=== PATIENT | female | born 1940 | race Caucasian/White ===

== ENCOUNTER → 2018-03-15 08:54 | Outpatient (CLI) | payer MEDICARE, OTHER, SELFPAY ==
[2018-03-15 09:55] LABS: Alanine Aminotransferase 26 IU/L (9-52); Albumin 4.4 g/dL (3.5-5.0); Albumin Globulin Ratio 1.6 (1.0-2.8); Alkaline Phosphatase 111 U/L (38-126); Aspartate Aminotransferase 25 IU/L (14-36); BUN Creatinine Ratio 18.6 (6-22); Bilirubin Total 0.5 mg/dL (0.2-1.3); Blood Urea Nitrogen 13 mg/dL (7-17); Calcium 9.4 mg/dL (8.4-10.2); Carbon Dioxide 26 mmol/L (22-32); Chloride 107 mmol/L (98-107); Cholesterol 141 mg/dL (140-199); Estimated Glomerular Filt Rate > 60.0 mL/min (>60); Globulin 2.8 g/dL (1.7-4.1); Glucose 100 mg/dL (80-110); HDL Cholesterol 48 mg/dL (40-60); HEMOLYSIS < 15 (0-50); LDL Cholesterol Calculated 66 mg/dL (<100); Sodium 146 mmol/L (137-145); Total Protein 7.2 g/dL (6.3-8.2); Triglycerides 136 mg/dL (35-150)
== END ==
PROVIDERS: Visit Provider Physician Assistant
DX: E78.2 Mixed hyperlipidemia (principal)
CPT/HCPCS: 36415; 80053; 80061

== ENCOUNTER → 2019-06-14 12:23 | Outpatient (CLI) | payer MEDICARE, OTHER, SELFPAY ==
[2019-06-14 14:14] LABS: Add Manual Diff / Slide Review NO; Basophils Absolute Auto 100 /uL (0-100); Basophils Percent Auto 1.1 % (0-2); Eosinophils Absolute Auto 100 /uL (0-450); Eosinophils Percent Auto 1.8 % (2-4); Hematocrit 41.4 % (36-46); Hemoglobin 13.5 g/dL (12.0-16.0); Lymphocytes Absolute Auto 1900 /uL (1100-4500); Lymphocytes Percent Auto 22.9 % (25-40); Mean Corpuscular HGB Conc 32.7 % (30-36); Mean Corpuscular Hemoglobin 27.7 PG (26-34); Mean Corpuscular Volume 84.9 fL (80-100); Monocytes Absolute Auto 700 /uL (0-900); Monocytes Percent Auto 8.8 % (3-14); Neutrophils Absolute Auto 5400 /uL (1500-7000); Neutrophils Percent Auto 65.4 % (50-75); Platelet Count 248 X10^3/uL (150-400); Red Blood Cell Count 4.88 X10^6/uL (4.0-5.2); Red Cell Distribution Width 14.8 % (11.6-14.8); White Blood Cell Count 8.2 X10^3/uL (4.5-11.0)
[2019-06-14 16:07] LABS: Alanine Aminotransferase 20 IU/L (<35); Albumin 4.3 g/dL (3.5-5.0); Albumin Globulin Ratio 1.5 (1.0-2.8); Alkaline Phosphatase 132 U/L (38-126); Aspartate Aminotransferase 23 IU/L (14-36); BUN Creatinine Ratio 25.7 (6-22); Bilirubin Total 0.6 mg/dL (0.2-1.3); Blood Urea Nitrogen 18 mg/dL (7-17); Calcium 9.6 mg/dL (8.4-10.2); Carbon Dioxide 24 mmol/L (22-32); Chloride 100 mmol/L (98-107); Cholesterol 165 mg/dL (140-199); Estimated Glomerular Filt Rate > 60.0 mL/min (>60); Globulin 2.8 g/dL (1.7-4.1); Glucose 79 mg/dL (80-110); HDL Cholesterol 71 mg/dL (40-60); HEMOLYSIS < 15 (0-50); LDL Cholesterol Calculated 74 mg/dL (<100); Potassium 3.8 mmol/L (3.4-5.1); Sodium 137 mmol/L (137-145); Total Protein 7.1 g/dL (6.3-8.2); Triglycerides 101 mg/dL (35-150)
[2019-06-14 16:37] LABS: TSH w/ Reflex to FT4 3.19 uIU/mL (0.47-4.68)
[2019-06-14 18:26] LABS: Hemoglobin A1C% w Est Avg Glu 5.2 % (4.0-6.0)
[2019-06-14 19:09] LABS: Vitamin B12 367 pg/mL (239-931)
[2019-06-20 15:25] LABS: Albumin 3.9 g/dL (3.8-4.8); Alpha 1 Globulin 0.3 g/dL (0.2-0.3); Alpha 2 Globulin 0.9 g/dL (0.5-0.9); Beta 1 Globulin 0.4 g/dL (0.4-0.6); Gamma Globulin 0.9 g/dL (0.8-1.7); Protein, Total 6.7 g/dL (6.1-8.1)
--- NOTE | 2019-07-09 15:31 | ONC.MSW ---
Description: New Referral Navigation-monoclonal gammopathy Activity: Reviewed referral for medical status, acuity, and immediate needs. Forwarded to scheduling for next available initial consult visit f/u.
== END ==
PROVIDERS: Family Provider Internal Medicine; PCP Physician Assistant; Visit Provider Physician Assistant
DX: E78.2 Mixed hyperlipidemia (principal); E03.9 Hypothyroidism, unspecified; G62.9 Polyneuropathy, unspecified; D47.2 Monoclonal gammopathy; R73.01 Impaired fasting glucose; E53.8 Deficiency of other specified B group vitamins
CPT/HCPCS: 36415; 80053; 80061; 82607; 83036; 84155; 84165; 84443; 85025

== ENCOUNTER 2020-08-24 15:15 | Outpatient (RCR) | payer MEDICARE, OTHER, SELFPAY ==
--- NOTE | 2020-05-04 18:05 | PT.OIE ---
Current Diagnoses Unilateral primary osteoarthritis, right knee (05/04/20) Trochanteric bursitis, right hip (05/04/20) Difficulty in walking, not elsewhere classified (05/04/20) Weakness (05/04/20) Past Medical History (Last Updated 07/11/19 @ 10:44 by Joby Aggarwal MD) Hyperlipidemia (~1991) Ischemic colitis (~2010) Past Surgical History (Last Updated 07/11/19 @ 10:44 by Joby Aggarwal MD) H/O hysterectomy with oophorectomy History of left knee surgery (~2009) Visit Care Team Role Provider Type Jess Jordan PA-C Primary Care Provider Advanced Interior Design Instructor Specialty: Internal Medicine Address: [address] [place] [address], [id number] Email: [email or web address] Fede Moore DO Family Provider Physician Specialty: Internal Medicine Address: [address] [place] [address], [phone] Email: Attending Provider Referring Provider Specialty: Address: Phone: Fax: Email: Physical Therapy Initial Evaluation PT-OP-A Visit Information Start: 05/04/20 12:29 Freq: Status: Active Protocol: Document 05/04/20 16:47 [facility] (Rec: 05/04/20 17:49 [facility] [id number]) Out-Patient Physical Therapy Visit Information Visit Information Visit Type Initial Evaluation Visit Start Time 16:50 Visit Stop Time 17:40 Total Visit Minutes 50 Visit Number 1 Number of MANAGER OFFICE SERVICES Visits 0 PT-OP-B Current Condition Start: 05/04/20 12:29 Freq: Status: Active Protocol: Document 05/04/20 16:47 [facility] (Rec: 05/04/20 17:49 [facility] [id number]) Current Condition History of Current Condition Onset Date end of fall Current Complaints R knee & thigh History of Current Condition Pt reports she cannot straighten her R leg out for any length of time. She gets shooting pains into ant & post knee and med and lat thigh. Pt reports she has a terrible time sleeping and has to take ibuprofen & tylenol. Pt reports it depends on what she does during the day for her pain. Pt works at [employer] . She has to stand for the 4 hours at [employer] and she hurts really bad. 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 pt reports the pain is more when seh is tired . She used to walk at [employer] but hasn't d/t weather, pain & COVID. Pt reports the end of summer in Jan and Feb, she could hear a clicking in her knee but not all the time. Pt reports it just has gotten worse since then. Pt reports then her ankle started swelling to. Pt has a L uni knee in jan and saw the PA at the same clinic. PA thinks she has a tight ITB and there may be a meniscus injury to R knee. Mostly the pain feels muscular but notes the pain to ant L knee and into L adductor region. Pt does not remember any injuries . Pt reports PA diagnosed her with OA in R knee. Pt reports PA recommended possibly cortizone shot and she is opting out of that right now. She does not like to take meds typically. Pt has restless legs also and has to take tyleonol for that. Treatment Goals Patient/Caregiver Goals return to walking, dec pain PT-OP-C Subjective Start: 05/04/20 12:29 Freq: Status: Active Protocol: Document 05/04/20 16:47 [facility] (Rec: 05/04/20 17:49 [facility] [id number]) OP-PT Pain Assessment Location R knee Pain Location Details ant and med knee Scale Used worst 10/10 Description Sharp Description- Other best 2/10, gets stiff easily Frequency Constant Radiating Location adductors, lat thigh, olivarez Variations/Patterns swelling in R ankle and lower leg Pain Aggravating Factors Standing,Walking,Stair Climbing Other Pain Aggravating Factors at night, knee ext Pain Alleviating Factors Medication PT-OP-D Balance Start: 05/04/20 12:29 Freq: Status: Active Protocol: Document 05/04/20 16:47 [facility] (Rec: 05/04/20 17:49 [facility] [id number]) Balance Tests Single Limb Standing Single Limb- Right 2 sec pain Single Limb- Left 4 sec PT-OP-F Manual Assessment Start: 05/04/20 12:29 Freq: Status: Active Protocol: Document 05/04/20 16:47 [facility] (Rec: 05/04/20 17:49 [facility] [id number]) Manual Assessments Soft Tissue Assessment Soft Tissue Mobility Assessment tender at med >lat joint line, adductors, ITB, HS & quad, pes anserene PT-OP-G Mobility & Gait Start: 05/04/20 12:29 Freq: Status: Active Protocol: Document 05/04/20 16:47 [facility] (Rec: 05/04/20 17:49 [facility] [id number]) OP Gait Assessment Comments Gait Comments Pt has inc lat leaning B and dec push off on L side and dec stance time PT-OP-J Posture/Palpation/Skin Start: 05/04/20 12:29 Freq: Status: Active Protocol: Document 05/04/20 16:47 [facility] (Rec: 05/04/20 17:49 [facility] [id number]) Posture Evaluation Randy Postural Classification System Randy Postural Classifications Posterior/Posterior Lumbar Protective Mechanism Left AP 2 Lumbar Protective Mechanism Right AP 0 Lumbar Protective Mechanism Left PA 2 Lumbar Protective Mechanism Right PA 0 PT-OP-K Range of Motion Start: 05/04/20 12:29 Freq: Status: Active Protocol: Document 05/04/20 16:47 [facility] (Rec: 05/04/20 17:49 [facility] [id number]) Knee Goniometric Range of Motion Knee Right Flexion Active (degrees) 121 Extension Active (degrees) 12 Left Flexion Active (degrees) 131 Extension Active (degrees) 5 PT-OP-L Special Tests Start: 05/04/20 12:29 Freq: Status: Active Protocol: Document 05/04/20 16:47 [facility] (Rec: 05/04/20 17:49 [facility] [id number]) Special Tests Knee Special Tests Amparo Test Test Results pain but no clicking Librado Test Results R hip flexor & quad tightness, L mild quad tightness Straight Leg Raise Test Results 92 L, 71 R Varus- 25 Degrees Test Results neg R Valgus- 25 Degrees Test Results neg R Compa's Test Results neg R Anterior Draw Test Results neg R Posterior Draw Test Results neg R PT-OP-M Strength Start: 05/04/20 12:29 Freq: Status: Active Protocol: Document 05/04/20 16:47 [facility] (Rec: 05/04/20 17:49 [facility] [id number]) Hip Strength Hip Manual Muscle Testing Right Flexion (L2) 3+ Fair+ Extension (S1) 2+ Poor+ Abduction 3 Fair Adduction 2+ Poor+ External Rotation 3 Fair Internal Rotation 3 Fair Left Flexion (L2) 4- Good- Extension (S1) 2+ Poor+ Abduction 4- Good- Adduction 3+ Fair+ External Rotation 3+ Fair+ Internal Rotation 4- Good- Knee Strength Knee Manual Muscle Testing Right Flexion (S2) 4- Good- Extension (L3) 4- Good- Left Flexion (S2) 4 Good Extension (L3) 5 Normal Ankle/Foot Strength Ankle and Foot Manual Muscle Testing Right Dorsiflexion (L4) 5 Normal Plantarflexion (S1) 5 Normal Left Dorsiflexion (L4) 5 Normal Plantarflexion (S1) 5 Normal PT-OP-Q Treatments Start: 05/04/20 12:29 Freq: Status: Active Protocol: Document 05/04/20 16:47 [facility] (Rec: 05/04/20 17:49 [facility] [id number]) Therapeutic Activity Therapeutic Activity sleep Name [facility] re: sleep psotion w/use of pillow for set up btwn knees PT-OP-R Modalities Start: 05/04/20 12:29 Freq: Status: Active Protocol: Document 05/04/20 16:47 [facility] (Rec: 05/04/20 17:49 [facility] [id number]) Hot Pack/Cold Pack Treatment Cold Pack Location R knee Patient Position Hooklying Treatment Duration (minutes) 10 PT-OP-T Assessment and Plan Start: 05/04/20 12:29 Freq: Status: Active Protocol: Document 05/04/20 16:47 [facility] (Rec: 05/04/20 17:49 [facility] [id number]) Physical Therapy Assessment Rehab Potential Rehabilitation Potential Good Evaluation Complexity Number of Personal Factors/Comorbidities 3 or More Number of Body Systems Impaired 4 or More Clinical Presentation at Evaluation Evolving Impairments Impairments Activity Tolerance,Balance, Functional Activities, Functional Mobility,Gait,Pain, ROM,Soft Tissue Mobility, Strength Goals ROM Short Term Goal (STG) Pt will have at least 5-130 deg ROM of R knee without inc pain. STG Duration 06/04/20 Aircraft Stress Analyst Goal (LTG) Pt will be able to ascend and descend stairs without inc pain. LTG Duration 07/05/20 activities Short Term Goal (STG) Pt will be able to do typical walks at [facility] 3x/week with no more than 3/10 pain. STG Duration 06/13/20 Care Home Goal (LTG) Pt iwll be able to stand for full volunteer shifts without increased pain. LTG Duration 07/05/20 strength Short Term Goal (STG) pt will be indep with HEP STG Duration 06/04/20 Care Home Goal (LTG) Pt will score at least 4+/5 on all planes for MMT for B LE and 3/5 in all plans for LPM to show imrpoved stability to allow pt to do typical activiteis without pain. LTG Duration 07/05/20 LEFS Impairment 52/80 Aircraft Stress Analyst Goal (LTG) Pt will improve score to 62/80 to show improved functional ability. LTG Duration 07/05/20 Assessment Summary Assessment Pt presents with R knee and thigh/olivarez pain that started a couple months ago with clicking and mild pain but now is much worse where it limits her activities. She has no ligamentous laxity, testing and pt report indicates possible meniscal injury but pt does not have any recall of injury that would have caused this. She has dec stance time on RLE during gait, is unable to stand for extended time, has dec R knee ROM, dec RLE flexibility, and dec strength and balance. SHe would benefit from skilled PT to imrpove these deficits and dec her pain in order to allow her to participate in her typical daily activities without limitation. Physical Therapy Plan Frequency and Duration Frequency of Treatment 2x/Week Duration of Treatment 2 months Plan of Care Start Date 05/04/20 Plan of Care End Date 07/05/20 Therapeutic Interventions Therapeutic Interventions Aquatic Therapy,Balance Training,Gait Training,Home Exercise Program,Joint Mobilizations,Manual Therapy, Neuromuscular Re-education, Orthotic/Prosthetic Management ,Patient/Caregiver Education, Self-Care/Home Management,Soft Tissue Mobilization,Taping, Therapeutic Activities, Therapeutic Exercises Modalities Cold Pack/Ice Massage,Electric Stimulation,Hot Packs, Infrared Therapy,Iontophoresis ,Ultrasound Next Visit Focus/Plan Next Note Type Treatment Note Next Visit Plan stretching regimen for before bed for thigh pain & RLS, self rolling w/rolling pin, quad set & heel slide, STM for improved mobility.
--- NOTE | 2020-05-04 18:05 | PT.OPPOC ---
Physical, Occupational & Speech Therapy At [facility] Current Diagnoses Unilateral primary osteoarthritis, right knee (05/04/20) Trochanteric bursitis, right hip (05/04/20) Difficulty in walking, not elsewhere classified (05/04/20) Weakness (05/04/20) Visit Care Team Role Provider Type Jess Jordan PA-C Primary Care Provider Advanced Wagon Driller Specialty: Internal Medicine Address: [address] [place] [address], [phone] Email: [email or web address] Fede Moore DO Family Provider Physician Specialty: Internal Medicine Address: [address] [place] [address], [phone] Email: Attending Provider Referring Provider Specialty: Address: Phone: Fax: Email: Plan Of Care PT-OP-T Assessment and Plan Start: 05/04/20 12:29 Freq: Status: Active Protocol: Document 05/04/20 16:47 [facility] (Rec: 05/04/20 17:49 [facility] [id number]) Physical Therapy Assessment Rehab Potential Rehabilitation Potential Good Evaluation Complexity Number of Personal Factors/Comorbidities 3 or More Number of Body Systems Impaired 4 or More Clinical Presentation at Evaluation Evolving Impairments Impairments Activity Tolerance,Balance, Functional Activities, Functional Mobility,Gait,Pain, ROM,Soft Tissue Mobility, Strength Goals ROM Short Term Goal (STG) Pt will have at least 5-130 deg ROM of R knee without inc pain. STG Duration 06/04/20 Test Driller Goal (LTG) Pt will be able to ascend and descend stairs without inc pain. LTG Duration 07/05/20 activities Short Term Goal (STG) Pt will be able to do typical walks at [employer] 3x/week with no more than 3/10 pain. STG Duration 06/13/20 Test Driller Goal (LTG) Pt iwll be able to stand for full volunteer shifts without increased pain. LTG Duration 07/05/20 strength Short Term Goal (STG) pt will be indep with HEP STG Duration 06/04/20 Group Home Goal (LTG) Pt will score at least 4+/5 on all planes for MMT for B LE and 3/5 in all plans for LPM to show imrpoved stability to allow pt to do typical activiteis without pain. LTG Duration 07/05/20 LEFS Impairment 52/80 Test Driller Goal (LTG) Pt will improve score to 62/80 to show improved functional ability. LTG Duration 07/05/20 Assessment Summary Assessment Pt presents with R knee and thigh/olivarez pain that started a couple months ago with clicking and mild pain but now is much worse where it limits her activities. She has no ligamentous laxity, testing and pt report indicates possible meniscal injury but pt does not have any recall of injury that would have caused this. She has dec stance time on RLE during gait, is unable to stand for extended time, has dec R knee ROM, dec RLE flexibility, and dec strength and balance. SHe would benefit from skilled PT to imrpove these deficits and dec her pain in order to allow her to participate in her typical daily activities without limitation. Physical Therapy Plan Frequency and Duration Frequency of Treatment 2x/Week Duration of Treatment 2 months Plan of Care Start Date 05/04/20 Plan of Care End Date 07/05/20 Therapeutic Interventions Therapeutic Interventions Aquatic Therapy,Balance Training,Gait Training,Home Exercise Program,Joint Mobilizations,Manual Therapy, Neuromuscular Re-education, Orthotic/Prosthetic Management ,Patient/Caregiver Education, Self-Care/Home Management,Soft Tissue Mobilization,Taping, Therapeutic Activities, Therapeutic Exercises Modalities Cold Pack/Ice Massage,Electric Stimulation,Hot Packs, Infrared Therapy,Iontophoresis ,Ultrasound Next Visit Focus/Plan Next Note Type Treatment Note Next Visit Plan stretching regimen for before bed for thigh pain & RLS, self rolling w/rolling pin, quad set & heel slide, STM for improved mobility. Plan of Care Dates Plan of Care Start Date 05/04/20 Plan of Care End Date 07/05/20 Electronically Signed by: Radha Wesley, PT 05/04/20 [id number] Please Sign and Return: I have reviewed this Plan of Care and certify that the skilled therapy services above are required to meet the patient?s needs. Physician Signature Date Printed Name and Credentials Clinical Instructor Signature Printed Name and Credentials
--- NOTE | 2020-05-07 12:14 | PT.OTN ---
Current Diagnoses Unilateral primary osteoarthritis, right knee (05/07/20) Trochanteric bursitis, right hip (05/07/20) Difficulty in walking, not elsewhere classified (05/07/20) Weakness (05/07/20) Physical Therapy Treatment Note PT-OP-A Visit Information Start: 05/04/20 12:29 Freq: Status: Active Protocol: Document 05/07/20 11:13 [facility] (Rec: 05/07/20 12:14 [facility] [id number]) Out-Patient Physical Therapy Visit Information Visit Information Visit Type Treatment Note Visit Start Time 11:16 Visit Stop Time 12:06 Total Visit Minutes 50 Visit Number 2 Number of SCIENTIFIC PROCESS OPERATOR Visits 0 PT-OP-B Current Condition Start: 05/04/20 12:29 Freq: Status: Active Protocol: Document 05/04/20 16:47 [facility] (Rec: 05/04/20 17:49 [facility] [id number]) Current Condition History of Current Condition Onset Date end of fall Current Complaints R knee & thigh History of Current Condition Pt reports she cannot straighten her R leg out for any length of time. She gets shooting pains into ant & post knee and med and lat thigh. Pt reports she has a terrible time sleeping and has to take ibuprofen & tylenol. Pt reports it depends on what she does during the day for her pain. Pt works at [employer] . She has to stand for the 4 hours at [employer] and she hurts really bad. 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 pt reports the pain is more when seh is tired . She used to walk at [employer] but hasn't d/t weather, pain & COVID. Pt reports the end of summer in Jan and Feb, she could hear a clicking in her knee but not all the time. Pt reports it just has gotten worse since then. Pt reports then her ankle started swelling to. Pt has a L uni knee in jan and saw the PA at the same clinic. PA thinks she has a tight ITB and there may be a meniscus injury to R knee. Mostly the pain feels muscular but notes the pain to ant L knee and into L adductor region. Pt does not remember any injuries . Pt reports PA diagnosed her with OA in R knee. Pt reports PA recommended possibly cortizone shot and she is opting out of that right now. She does not like to take meds typically. Pt has restless legs also and has to take tyleonol for that. Treatment Goals Patient/Caregiver Goals return to walking, dec pain PT-OP-C Subjective Start: 05/04/20 12:29 Freq: Status: Active Protocol: Document 05/07/20 11:13 [facility] (Rec: 05/07/20 12:14 [facility] [id number]) OP-PT Subjective Patient Comments Patient Comments Pt reports her pain is getting a little better except at night time. She gets sharp jabs behind R knee. Notes stretch over the edge of the bed feels good. PT-OP-D Balance Start: 05/04/20 12:29 Freq: Status: Active Protocol: Document 05/04/20 16:47 [facility] (Rec: 05/04/20 17:49 [facility] [id number]) Balance Tests Single Limb Standing Single Limb- Right 2 sec pain Single Limb- Left 4 sec PT-OP-F Manual Assessment Start: 05/04/20 12:29 Freq: Status: Active Protocol: Document 05/04/20 16:47 [facility] (Rec: 05/04/20 17:49 [facility] [id number]) Manual Assessments Soft Tissue Assessment Soft Tissue Mobility Assessment tender at med >lat joint line, adductors, ITB, HS & quad, pes anserene PT-OP-G Mobility & Gait Start: 05/04/20 12:29 Freq: Status: Active Protocol: Document 05/04/20 16:47 [facility] (Rec: 05/04/20 17:49 [facility] [id number]) OP Gait Assessment Comments Gait Comments Pt has inc lat leaning B and dec push off on L side and dec stance time PT-OP-J Posture/Palpation/Skin Start: 05/04/20 12:29 Freq: Status: Active Protocol: Document 05/04/20 16:47 [facility] (Rec: 05/04/20 17:49 [facility] [id number]) Posture Evaluation Randy Postural Classification System Randy Postural Classifications Posterior/Posterior Lumbar Protective Mechanism Left AP 2 Lumbar Protective Mechanism Right AP 0 Lumbar Protective Mechanism Left PA 2 Lumbar Protective Mechanism Right PA 0 PT-OP-K Range of Motion Start: 05/04/20 12:29 Freq: Status: Active Protocol: Document 05/04/20 16:47 [facility] (Rec: 05/04/20 17:49 [facility] [id number]) Knee Goniometric Range of Motion Knee Right Flexion Active (degrees) 121 Extension Active (degrees) 12 Left Flexion Active (degrees) 131 Extension Active (degrees) 5 PT-OP-L Special Tests Start: 05/04/20 12:29 Freq: Status: Active Protocol: Document 05/04/20 16:47 [facility] (Rec: 05/04/20 17:49 [facility] [id number]) Special Tests Knee Special Tests Amparo Test Test Results pain but no clicking Librado Test Results R hip flexor & quad tightness, L mild quad tightness Straight Leg Raise Test Results 92 L, 71 R Varus- 25 Degrees Test Results neg R Valgus- 25 Degrees Test Results neg R Compa's Test Results neg R Anterior Draw Test Results neg R Posterior Draw Test Results neg R PT-OP-M Strength Start: 05/04/20 12:29 Freq: Status: Active Protocol: Document 05/04/20 16:47 [facility] (Rec: 05/04/20 17:49 [facility] [id number]) Hip Strength Hip Manual Muscle Testing Right Flexion (L2) 3+ Fair+ Extension (S1) 2+ Poor+ Abduction 3 Fair Adduction 2+ Poor+ External Rotation 3 Fair Internal Rotation 3 Fair Left Flexion (L2) 4- Good- Extension (S1) 2+ Poor+ Abduction 4- Good- Adduction 3+ Fair+ External Rotation 3+ Fair+ Internal Rotation 4- Good- Knee Strength Knee Manual Muscle Testing Right Flexion (S2) 4- Good- Extension (L3) 4- Good- Left Flexion (S2) 4 Good Extension (L3) 5 Normal Ankle/Foot Strength Ankle and Foot Manual Muscle Testing Right Dorsiflexion (L4) 5 Normal Plantarflexion (S1) 5 Normal Left Dorsiflexion (L4) 5 Normal Plantarflexion (S1) 5 Normal PT-OP-Q Treatments Start: 05/04/20 12:29 Freq: Status: Active Protocol: Document 05/07/20 11:13 [facility] (Rec: 05/07/20 12:14 [facility] [id number]) Cardio Equipment Recumbent Elliptical ([employer]) Duration (Minutes) 6 Resistance 3 Seat Position 6 Therapeutic Exercises Supine Exercises SLR Supine Exercise Name core focus Side bilateral Reps/Minutes 10 ea bridge Side bilateral Reps/Minutes 10x 5 sec Comments core focus stretches Supine Exercise Name 1.HS & calf together 2. piriformis 3. figure 4 Side bilateral Reps/Minutes 30 sec ea librado test Side bilateral Reps/Minutes 30 sec Sidelying Exercises clamshell Reps/Minutes only 5 on R d/t pain Manual Therapy Treatment Soft Tissue Mobilization quads Body Location R Mobilization Type Rolling Intensity/Depth Superficial Body Position Hooklying adductors Body Location R Mobilization Type Rolling Intensity/Depth Superficial Body Position Hooklying PT-OP-R Modalities Start: 05/04/20 12:29 Freq: Status: Active Protocol: Document 05/07/20 11:13 [facility] (Rec: 05/07/20 12:14 [facility] [id number]) Hot Pack/Cold Pack Treatment Cold Pack Location R knee & quad Patient Position Hooklying Treatment Duration (minutes) 10 PT-OP-T Assessment and Plan Start: 05/04/20 12:29 Freq: Status: Active Protocol: Document 05/07/20 11:13 [facility] (Rec: 05/07/20 12:14 [facility] [id number]) Physical Therapy Assessment Goals ROM Short Term Goal (STG) Pt will have at least 5-130 deg ROM of R knee without inc pain. STG Duration 06/04/20 Lease Out Worker Goal (LTG) Pt will be able to ascend and descend stairs without inc pain. LTG Duration 07/05/20 activities Short Term Goal (STG) Pt will be able to do typical walks at [facility] 3x/week with no more than 3/10 pain. 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 LTG Duration 07/05/20 strength Short Term Goal (STG) pt will be indep with HEP STG Duration 06/04/20 Lease Out Worker Goal (LTG) Pt will score at least 4+/5 on all planes for MMT for B LE and 3/5 in all plans for LPM to show imrpoved stability to allow pt to do typical activiteis without pain. LTG Duration 07/05/20 LEFS Impairment 52/80 Lease Out Worker Goal (LTG) Pt will improve score to 62/80 to show improved functional ability. LTG Duration 07/05/20 Assessment Summary Assessment Pt tolerated all stretching exercises well without increased pain. Required cueing for form w/bridges to help dec knee pain duirng that activity. max cueing for core especially w/R SLR to dec pain. Pt could not tolerate more than superficial pressure to thigh with STM Physical Therapy Plan Frequency and Duration Frequency of Treatment 2x/Week Duration of Treatment 2 months Plan of Care Start Date 05/04/20 Plan of Care End Date 07/05/20 Next Visit Focus/Plan Next Note Type Treatment Note Next Visit Plan review exercises, STM to dec pain
--- NOTE | 2020-05-21 15:18 | PT.OTN ---
Current Diagnoses Unilateral primary osteoarthritis, right knee (05/21/20) Trochanteric bursitis, right hip (05/21/20) Difficulty in walking, not elsewhere classified (05/21/20) Weakness (05/21/20) Physical Therapy Treatment Note PT-OP-A Visit Information Start: 05/04/20 12:29 Freq: Status: Active Protocol: Document 05/21/20 14:04 [facility] (Rec: 05/21/20 15:18 [facility] [id number]) Out-Patient Physical Therapy Visit Information Visit Information Visit Type Treatment Note Visit Start Time 14:30 Visit Stop Time 15:23 Total Visit Minutes 53 Visit Number 3 Number of ROLLED GOLD PLATER Visits 0 PT-OP-B Current Condition Start: 05/04/20 12:29 Freq: Status: Active Protocol: Document 05/04/20 16:47 [facility] (Rec: 05/04/20 17:49 [facility] [id number]) Current Condition History of Current Condition Onset Date end of fall Current Complaints R knee & thigh History of Current Condition Pt reports she cannot straighten her R leg out for any length of time. She gets shooting pains into ant & post knee and med and lat thigh. Pt reports she has a terrible time sleeping and has to take ibuprofen & tylenol. Pt reports it depends on what she does during the day for her pain. Pt works at [employer] . She has to stand for the 4 hours at [employer] and she hurts really bad. 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 pt reports the pain is more when seh is tired . She used to walk at [employer] but hasn't d/t weather, pain & COVID. Pt reports the end of summer in Jan and Feb, she could hear a clicking in her knee but not all the time. Pt reports it just has gotten worse since then. Pt reports then her ankle started swelling to. Pt has a L uni knee in jan and saw the PA at the same clinic. PA thinks she has a tight ITB and there may be a meniscus injury to R knee. Mostly the pain feels muscular but notes the pain to ant L knee and into L adductor region. Pt does not remember any injuries . Pt reports PA diagnosed her with OA in R knee. Pt reports PA recommended possibly cortizone shot and she is opting out of that right now. She does not like to take meds typically. Pt has restless legs also and has to take tyleonol for that. Treatment Goals Patient/Caregiver Goals return to walking, dec pain PT-OP-C Subjective Start: 05/04/20 12:29 Freq: Status: Active Protocol: Document 05/21/20 14:04 [facility] (Rec: 05/21/20 15:18 [facility] [id number]) OP-PT Subjective Patient Comments Patient Comments Pt reports night is still bad. Notes she is trying the pillow. Standing at work is still painful. Feels like seh pulled and abdomenal mm during exercises so has laid off them. She reports doing okay after last time. 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 PT-OP-D Balance Start: 05/04/20 12:29 Freq: Status: Active Protocol: Document 05/04/20 16:47 [facility] (Rec: 05/04/20 17:49 [facility] [id number]) Balance Tests Single Limb Standing Single Limb- Right 2 sec pain Single Limb- Left 4 sec PT-OP-F Manual Assessment Start: 05/04/20 12:29 Freq: Status: Active Protocol: Document 05/04/20 16:47 [facility] (Rec: 05/04/20 17:49 [facility] [id number]) Manual Assessments Soft Tissue Assessment Soft Tissue Mobility Assessment tender at med >lat joint line, adductors, ITB, HS & quad, pes anserene PT-OP-G Mobility & Gait Start: 05/04/20 12:29 Freq: Status: Active Protocol: Document 05/04/20 16:47 [facility] (Rec: 05/04/20 17:49 [facility] [id number]) OP Gait Assessment Comments Gait Comments Pt has inc lat leaning B and dec push off on L side and dec stance time PT-OP-J Posture/Palpation/Skin Start: 05/04/20 12:29 Freq: Status: Active Protocol: Document 05/04/20 16:47 [facility] (Rec: 05/04/20 17:49 [facility] [id number]) Posture Evaluation Randy Postural Classification System Randy Postural Classifications Posterior/Posterior Lumbar Protective Mechanism Left AP 2 Lumbar Protective Mechanism Right AP 0 Lumbar Protective Mechanism Left PA 2 Lumbar Protective Mechanism Right PA 0 PT-OP-K Range of Motion Start: 05/04/20 12:29 Freq: Status: Active Protocol: Document 05/04/20 16:47 [facility] (Rec: 05/04/20 17:49 [facility] [id number]) Knee Goniometric Range of Motion Knee Right Flexion Active (degrees) 121 Extension Active (degrees) 12 Left Flexion Active (degrees) 131 Extension Active (degrees) 5 PT-OP-L Special Tests Start: 05/04/20 12:29 Freq: Status: Active Protocol: Document 05/04/20 16:47 [facility] (Rec: 05/04/20 17:49 [facility] [id number]) Special Tests Knee Special Tests Amparo Test Test Results pain but no clicking Librado Test Results R hip flexor & quad tightness, L mild quad tightness Straight Leg Raise Test Results 92 L, 71 R Varus- 25 Degrees Test Results neg R Valgus- 25 Degrees Test Results neg R Compa's Test Results neg R Anterior Draw Test Results neg R Posterior Draw Test Results neg R PT-OP-M Strength Start: 05/04/20 12:29 Freq: Status: Active Protocol: Document 05/04/20 16:47 [facility] (Rec: 05/04/20 17:49 [facility] [id number]) Hip Strength Hip Manual Muscle Testing Right Flexion (L2) 3+ Fair+ Extension (S1) 2+ Poor+ Abduction 3 Fair Adduction 2+ Poor+ External Rotation 3 Fair Internal Rotation 3 Fair Left Flexion (L2) 4- Good- Extension (S1) 2+ Poor+ Abduction 4- Good- Adduction 3+ Fair+ External Rotation 3+ Fair+ Internal Rotation 4- Good- Knee Strength Knee Manual Muscle Testing Right Flexion (S2) 4- Good- Extension (L3) 4- Good- Left Flexion (S2) 4 Good Extension (L3) 5 Normal Ankle/Foot Strength Ankle and Foot Manual Muscle Testing Right Dorsiflexion (L4) 5 Normal Plantarflexion (S1) 5 Normal Left Dorsiflexion (L4) 5 Normal Plantarflexion (S1) 5 Normal PT-OP-Q Treatments Start: 05/04/20 12:29 Freq: Status: Active Protocol: Document 05/21/20 14:04 [facility] (Rec: 05/21/20 15:18 [facility] [id number]) Cardio Equipment Recumbent Elliptical ([employer]) Duration (Minutes) 6 Resistance 5 Seat Position 6 Therapeutic Exercises Supine Exercises SLR Supine Exercise Name core focus Side bilateral Reps/Minutes 10 ea bridge Side bilateral Reps/Minutes 10x 5 sec Comments core focus stretches Supine Exercise Name 1.HS & calf together 2. piriformis 3. figure 4 Side bilateral Reps/Minutes 30 sec ea librado test Side bilateral Reps/Minutes 30 sec Standing Exercises hip strength Standing Exercise Name 1. abd 2. ext Side bilateral Equipment Used L1 for 2nd set Reps/Minutes 10 eax2 Manual Therapy Treatment Soft Tissue Mobilization HS Body Location R med Mobilization Type Rolling Intensity/Depth Superficial quads Body Location R Mobilization Type Rolling Intensity/Depth Superficial Body Position Hooklying adductors Body Location R Mobilization Type Rolling Intensity/Depth Superficial Body Position Hooklying PT-OP-R Modalities Start: 05/04/20 12:29 Freq: Status: Active Protocol: Document 05/21/20 14:04 [facility] (Rec: 05/21/20 15:18 [facility] [id number]) Hot Pack/Cold Pack Treatment Cold Pack Location R knee & quad Patient Position Hooklying Treatment Duration (minutes) 10 PT-OP-T Assessment and Plan Start: 05/04/20 12:29 Freq: Status: Active Protocol: Document 05/21/20 14:04 [facility] (Rec: 05/21/20 15:18 [facility] [id number]) Physical Therapy Assessment Goals ROM Short Term Goal (STG) Pt will have at least 5-130 deg ROM of R knee without inc pain. STG Duration 06/04/20 Animal Trainer Supervisor Goal (LTG) Pt will be able to ascend and descend stairs without inc pain. LTG Duration 07/05/20 activities Short Term Goal (STG) Pt will be able to do typical walks at [employer] 3x/week with no more than 3/10 pain. 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 LTG Duration 07/05/20 strength Short Term Goal (STG) pt will be indep with HEP STG Duration 06/04/20 Assisted Goal (LTG) Pt will score at least 4+/5 on all planes for MMT for B LE and 3/5 in all plans for LPM to show imrpoved stability to allow pt to do typical activiteis without pain. LTG Duration 07/05/20 LEFS Impairment 52/80 Assisted Goal (LTG) Pt will improve score to 62/80 to show improved functional ability. LTG Duration 07/05/20 Assessment Summary Assessment Pt required cueing for posture with standing exercises. She needed cueing for core w/SLR & bridge. Min cueing for stretching Physical Therapy Plan Frequency and Duration Frequency of Treatment 2x/Week Duration of Treatment 2 months Plan of Care Start Date 05/04/20 Plan of Care End Date 07/05/20 Next Visit Focus/Plan Next Note Type Treatment Note Next Visit Plan review strength exercises, STM & joint mobs to dec pain
--- NOTE | 2020-05-26 10:40 | PT.OTN ---
Current Diagnoses Unilateral primary osteoarthritis, right knee (05/26/20) Trochanteric bursitis, right hip (05/26/20) Difficulty in walking, not elsewhere classified (05/26/20) Weakness (05/26/20) Physical Therapy Treatment Note PT-OP-A Visit Information Start: 05/04/20 12:29 Freq: Status: Active Protocol: Document 05/26/20 09:52 [facility] (Rec: 05/26/20 10:40 [facility] [id number]) Out-Patient Physical Therapy Visit Information Visit Information Visit Type Treatment Note Visit Start Time 09:47 Visit Stop Time 10:39 Total Visit Minutes 52 Visit Number 4 Number of ELECT[employer]OR [employer] ASSEMBLER Visits 0 PT-OP-B Current Condition Start: 05/04/20 12:29 Freq: Status: Active Protocol: Document 05/04/20 16:47 [facility] (Rec: 05/04/20 17:49 [facility] [id number]) Current Condition History of Current Condition Onset Date end of fall Current Complaints R knee & thigh History of Current Condition Pt reports she cannot straighten her R leg out for any length of time. She gets shooting pains into ant & post knee and med and lat thigh. Pt reports she has a terrible time sleeping and has to take ibuprofen & tylenol. Pt reports it depends on what she does during the day for her pain. Pt works at [employer] . She has to stand for the 4 hours at [employer] and she hurts really bad. 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 pt reports the pain is more when seh is tired . She used to walk at [employer] but hasn't d/t weather, pain & COVID. Pt reports the end of summer in Jan and Feb, she could hear a clicking in her knee but not all the time. Pt reports it just has gotten worse since then. Pt reports then her ankle started swelling to. Pt has a L uni knee in jan and saw the PA at the same clinic. PA thinks she has a tight ITB and there may be a meniscus injury to R knee. Mostly the pain feels muscular but notes the pain to ant L knee and into L adductor region. Pt does not remember any injuries . Pt reports PA diagnosed her with OA in R knee. Pt reports PA recommended possibly cortizone shot and she is opting out of that right now. She does not like to take meds typically. Pt has restless legs also and has to take tyleonol for that. Treatment Goals Patient/Caregiver Goals return to walking, dec pain PT-OP-C Subjective Start: 05/04/20 12:29 Freq: Status: Active Protocol: Document 05/26/20 09:52 [facility] (Rec: 05/26/20 10:40 [facility] [id number]) OP-PT Subjective Patient Comments Patient Comments Pt reports doing all exercises but librado test stretch d/t bed too soft PT-OP-D Balance Start: 05/04/20 12:29 Freq: Status: Active Protocol: Document 05/04/20 16:47 [facility] (Rec: 05/04/20 17:49 [facility] [id number]) Balance Tests Single Limb Standing Single Limb- Right 2 sec pain Single Limb- Left 4 sec PT-OP-F Manual Assessment Start: 05/04/20 12:29 Freq: Status: Active Protocol: Document 05/04/20 16:47 [facility] (Rec: 05/04/20 17:49 [facility] [id number]) Manual Assessments Soft Tissue Assessment Soft Tissue Mobility Assessment tender at med >lat joint line, adductors, ITB, HS & quad, pes anserene PT-OP-G Mobility & Gait Start: 05/04/20 12:29 Freq: Status: Active Protocol: Document 05/04/20 16:47 [facility] (Rec: 05/04/20 17:49 [facility] [id number]) OP Gait Assessment Comments Gait Comments Pt has inc lat leaning B and dec push off on L side and dec stance time PT-OP-J Posture/Palpation/Skin Start: 05/04/20 12:29 Freq: Status: Active Protocol: Document 05/04/20 16:47 [facility] (Rec: 05/04/20 17:49 [facility] [id number]) Posture Evaluation Randy Postural Classification System Randy Postural Classifications Posterior/Posterior Lumbar Protective Mechanism Left AP 2 Lumbar Protective Mechanism Right AP 0 Lumbar Protective Mechanism Left PA 2 Lumbar Protective Mechanism Right PA 0 PT-OP-K Range of Motion Start: 05/04/20 12:29 Freq: Status: Active Protocol: Document 05/04/20 16:47 [facility] (Rec: 05/04/20 17:49 [facility] [id number]) Knee Goniometric Range of Motion Knee Right Flexion Active (degrees) 121 Extension Active (degrees) 12 Left Flexion Active (degrees) 131 Extension Active (degrees) 5 PT-OP-L Special Tests Start: 05/04/20 12:29 Freq: Status: Active Protocol: Document 05/04/20 16:47 [facility] (Rec: 05/04/20 17:49 [facility] [id number]) Special Tests Knee Special Tests Amparo Test Test Results pain but no clicking Librado Test Results R hip flexor & quad tightness, L mild quad tightness Straight Leg Raise Test Results 92 L, 71 R Varus- 25 Degrees Test Results neg R Valgus- 25 Degrees Test Results neg R Compa's Test Results neg R Anterior Draw Test Results neg R Posterior Draw Test Results neg R PT-OP-M Strength Start: 05/04/20 12:29 Freq: Status: Active Protocol: Document 05/04/20 16:47 [facility] (Rec: 05/04/20 17:49 [facility] [id number]) Hip Strength Hip Manual Muscle Testing Right Flexion (L2) 3+ Fair+ Extension (S1) 2+ Poor+ Abduction 3 Fair Adduction 2+ Poor+ External Rotation 3 Fair Internal Rotation 3 Fair Left Flexion (L2) 4- Good- Extension (S1) 2+ Poor+ Abduction 4- Good- Adduction 3+ Fair+ External Rotation 3+ Fair+ Internal Rotation 4- Good- Knee Strength Knee Manual Muscle Testing Right Flexion (S2) 4- Good- Extension (L3) 4- Good- Left Flexion (S2) 4 Good Extension (L3) 5 Normal Ankle/Foot Strength Ankle and Foot Manual Muscle Testing Right Dorsiflexion (L4) 5 Normal Plantarflexion (S1) 5 Normal Left Dorsiflexion (L4) 5 Normal Plantarflexion (S1) 5 Normal PT-OP-Q Treatments Start: 05/04/20 12:29 Freq: Status: Active Protocol: Document 05/26/20 09:52 [facility] (Rec: 05/26/20 10:40 [facility] [id number]) Cardio Equipment Recumbent Elliptical (Scribd) Duration (Minutes) 7 Resistance 6 Seat Position 6 Therapeutic Exercises Supine Exercises ER Supine Exercise Name core focus Side bilateral Equipment Used L2 Reps/Minutes 2x12 SLR Supine Exercise Name core focus Side bilateral Reps/Minutes 10 ea bridge Side bilateral Reps/Minutes 10x 5 sec Comments core focus stretches Supine Exercise Name piriformis cross body stretch Side bilateral Reps/Minutes 30 sec Standing Exercises hip strength Standing Exercise Name 1. abd 2. ext Side bilateral Equipment Used L1 Reps/Minutes 10x2 Manual Therapy Treatment Soft Tissue Mobilization HS Body Location R med Mobilization Type Rolling Intensity/Depth Moderate quads Body Location R Mobilization Type Rolling Intensity/Depth Moderate Body Position Hooklying adductors Body Location R Mobilization Type Rolling Intensity/Depth Moderate Body Position Hooklying PT-OP-R Modalities Start: 05/04/20 12:29 Freq: Status: Active Protocol: Document 05/26/20 09:52 [facility] (Rec: 05/26/20 10:40 [facility] [id number]) Hot Pack/Cold Pack Treatment Cold Pack Location R knee & quad Patient Position Hooklying Treatment Duration (minutes) 10 PT-OP-T Assessment and Plan Start: 05/04/20 12:29 Freq: Status: Active Protocol: Document 05/26/20 09:52 [facility] (Rec: 05/26/20 10:40 [facility] [id number]) Physical Therapy Assessment Goals ROM Short Term Goal (STG) Pt will have at least 5-130 deg ROM of R knee without inc pain. STG Duration 06/04/20 Facilities Assistant Goal (LTG) Pt will be able to ascend and descend stairs without inc pain. LTG Duration 07/05/20 activities Short Term Goal (STG) Pt will be able to do typical walks at [facility] 3x/week with no more than 3/10 pain. 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 LTG Duration 07/05/20 strength Short Term Goal (STG) pt will be indep with HEP STG Duration 06/04/20 Fpc Goal (LTG) Pt will score at least 4+/5 on all planes for MMT for B LE and 3/5 in all plans for LPM to show imrpoved stability to allow pt to do typical activiteis without pain. LTG Duration 07/05/20 LEFS Impairment 52/80 Facilities Assistant Goal (LTG) Pt will improve score to 62/80 to show improved functional ability. LTG Duration 07/05/20 Assessment Summary Assessment very min cueing required for strength exercises today. Pt showed improved performance overall today. Able to tolerate more pressure with soft tissue massage today. Physical Therapy Plan Frequency and Duration Frequency of Treatment 2x/Week Duration of Treatment 2 months Plan of Care Start Date 05/04/20 Plan of Care End Date 07/05/20 Next Visit Focus/Plan Next Note Type Treatment Note Next Visit Plan progress core and hip strength exercises (side step, mini squat,) STM & joint mobs to dec pain
--- NOTE | 2020-05-28 10:32 | PT.OTN ---
Current Diagnoses Unilateral primary osteoarthritis, right knee (05/28/20) Trochanteric bursitis, right hip (05/28/20) Difficulty in walking, not elsewhere classified (05/28/20) Weakness (05/28/20) Physical Therapy Treatment Note PT-OP-A Visit Information Start: 05/04/20 12:29 Freq: Status: Active Protocol: Document 05/28/20 09:49 [facility] (Rec: 05/28/20 10:32 [facility] [id number]) Out-Patient Physical Therapy Visit Information Visit Information Visit Type Treatment Note Visit Start Time 09:45 Visit Stop Time 10:43 Total Visit Minutes 58 Visit Number 5 Number of [employer] Visits 0 PT-OP-B Current Condition Start: 05/04/20 12:29 Freq: Status: Active Protocol: Document 05/04/20 16:47 [facility] (Rec: 05/04/20 17:49 [facility] [id number]) Current Condition History of Current Condition Onset Date end of fall Current Complaints R knee & thigh History of Current Condition Pt reports she cannot straighten her R leg out for any length of time. She gets shooting pains into ant & post knee and med and lat thigh. Pt reports she has a terrible time sleeping and has to take ibuprofen & tylenol. Pt reports it depends on what she does during the day for her pain. Pt works at [employer] . She has to stand for the 4 hours at [employer] and she hurts really bad. 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 pt reports the pain is more when seh is tired . She used to walk at [employer] but hasn't d/t weather, pain & COVID. Pt reports the end of summer in Jan and Feb, she could hear a clicking in her knee but not all the time. Pt reports it just has gotten worse since then. Pt reports then her ankle started swelling to. Pt has a L uni knee in jan and saw the PA at the same clinic. PA thinks she has a tight ITB and there may be a meniscus injury to R knee. Mostly the pain feels muscular but notes the pain to ant L knee and into L adductor region. Pt does not remember any injuries . Pt reports PA diagnosed her with OA in R knee. Pt reports PA recommended possibly cortizone shot and she is opting out of that right now. She does not like to take meds typically. Pt has restless legs also and has to take tyleonol for that. Treatment Goals Patient/Caregiver Goals return to walking, dec pain PT-OP-C Subjective Start: 05/04/20 12:29 Freq: Status: Active Protocol: Document 05/28/20 09:49 [facility] (Rec: 05/28/20 10:32 [facility] [id number]) OP-PT Subjective Patient Comments Patient Comments Pt reports running around a lot yesterday and was so sore after. Pt reports it seems less sensitive in the AM but by the end of the day it is more sensative. 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 PT-OP-D Balance Start: 05/04/20 12:29 Freq: Status: Active Protocol: Document 05/04/20 16:47 [facility] (Rec: 05/04/20 17:49 [facility] [id number]) Balance Tests Single Limb Standing Single Limb- Right 2 sec pain Single Limb- Left 4 sec PT-OP-F Manual Assessment Start: 05/04/20 12:29 Freq: Status: Active Protocol: Document 05/04/20 16:47 [facility] (Rec: 05/04/20 17:49 [facility] [id number]) Manual Assessments Soft Tissue Assessment Soft Tissue Mobility Assessment tender at med >lat joint line, adductors, ITB, HS & quad, pes anserene PT-OP-G Mobility & Gait Start: 05/04/20 12:29 Freq: Status: Active Protocol: Document 05/04/20 16:47 [facility] (Rec: 05/04/20 17:49 [facility] [id number]) OP Gait Assessment Comments Gait Comments Pt has inc lat leaning B and dec push off on L side and dec stance time PT-OP-J Posture/Palpation/Skin Start: 05/04/20 12:29 Freq: Status: Active Protocol: Document 05/04/20 16:47 [facility] (Rec: 05/04/20 17:49 [facility] [id number]) Posture Evaluation Randy Postural Classification System Randy Postural Classifications Posterior/Posterior Lumbar Protective Mechanism Left AP 2 Lumbar Protective Mechanism Right AP 0 Lumbar Protective Mechanism Left PA 2 Lumbar Protective Mechanism Right PA 0 PT-OP-K Range of Motion Start: 05/04/20 12:29 Freq: Status: Active Protocol: Document 05/04/20 16:47 [facility] (Rec: 05/04/20 17:49 [facility] [id number]) Knee Goniometric Range of Motion Knee Right Flexion Active (degrees) 121 Extension Active (degrees) 12 Left Flexion Active (degrees) 131 Extension Active (degrees) 5 PT-OP-L Special Tests Start: 05/04/20 12:29 Freq: Status: Active Protocol: Document 05/04/20 16:47 [facility] (Rec: 05/04/20 17:49 [facility] [id number]) Special Tests Knee Special Tests Amparo Test Test Results pain but no clicking Librado Test Results R hip flexor & quad tightness, L mild quad tightness Straight Leg Raise Test Results 92 L, 71 R Varus- 25 Degrees Test Results neg R Valgus- 25 Degrees Test Results neg R Compa's Test Results neg R Anterior Draw Test Results neg R Posterior Draw Test Results neg R PT-OP-M Strength Start: 05/04/20 12:29 Freq: Status: Active Protocol: Document 05/04/20 16:47 [facility] (Rec: 05/04/20 17:49 [facility] [id number]) Hip Strength Hip Manual Muscle Testing Right Flexion (L2) 3+ Fair+ Extension (S1) 2+ Poor+ Abduction 3 Fair Adduction 2+ Poor+ External Rotation 3 Fair Internal Rotation 3 Fair Left Flexion (L2) 4- Good- Extension (S1) 2+ Poor+ Abduction 4- Good- Adduction 3+ Fair+ External Rotation 3+ Fair+ Internal Rotation 4- Good- Knee Strength Knee Manual Muscle Testing Right Flexion (S2) 4- Good- Extension (L3) 4- Good- Left Flexion (S2) 4 Good Extension (L3) 5 Normal Ankle/Foot Strength Ankle and Foot Manual Muscle Testing Right Dorsiflexion (L4) 5 Normal Plantarflexion (S1) 5 Normal Left Dorsiflexion (L4) 5 Normal Plantarflexion (S1) 5 Normal PT-OP-Q Treatments Start: 05/04/20 12:29 Freq: Status: Active Protocol: Document 05/28/20 09:49 [facility] (Rec: 05/28/20 10:32 [facility] [id number]) Cardio Equipment Recumbent Elliptical (Biodex) Duration (Minutes) 7 Resistance 7 Seat Position 6 Therapeutic Exercises Supine Exercises ER Supine Exercise Name core focus Side bilateral Equipment Used L2 Reps/Minutes 2x12 stretches Supine Exercise Name piriformis cross body stretch Side bilateral Reps/Minutes 30 sec Comments w/towel librado test Side right Reps/Minutes 1 min Standing Exercises squat Standing Exercise Name mini on wall Side bilateral Reps/Minutes 15 Comments w/PT resistance lat for abd side step Side bilateral Equipment Used yellow Reps/Minutes 20ft Manual Therapy Treatment Soft Tissue Mobilization glutes Body Location R Mobilization Type Rolling,Sustained Pressure Intensity/Depth Superficial Body Position Sidelying HS Body Location R med Mobilization Type Rolling Intensity/Depth Superficial Joint Mobilizations hip Joint inf FM R Grade II patellofemoral Direction sup, inf, med Grade II Taping KT Body Location 3 Y for med knee glide Type of Tape Kinesio Tape Skin Inspection no issues Neuro Re-Education Treatment Balance Activities foam Details EC Surface blue foam Comments WBOS, NBOS, staggered stance B PT-OP-R Modalities Start: 05/04/20 12:29 Freq: Status: Active Protocol: Document 05/28/20 09:49 [facility] (Rec: 05/28/20 10:32 [facility] [id number]) Hot Pack/Cold Pack Treatment Hot Pack Location R knee/thigh Patient Position Hooklying Treatment Duration (minutes) 15 PT-OP-T Assessment and Plan Start: 05/04/20 12:29 Freq: Status: Active Protocol: Document 05/28/20 09:49 [facility] (Rec: 05/28/20 10:32 [facility] [id number]) Physical Therapy Assessment Goals ROM Short Term Goal (STG) Pt will have at least 5-130 deg ROM of R knee without inc pain. STG Duration 06/04/20 [employer] Inspector Goal (LTG) Pt will be able to ascend and descend stairs without inc pain. LTG Duration 07/05/20 activities Short Term Goal (STG) Pt will be able to do typical walks at [employer] 3x/week with no more than 3/10 pain. STG Duration 06/13/20 Care Home Goal (LTG) Pt iwll be able to stand for full volunteer shifts without increased pain. LTG Duration 07/05/20 strength Short Term Goal (STG) pt will be indep with HEP STG Duration 06/04/20 Care Home Goal (LTG) Pt will score at least 4+/5 on all planes for MMT for B LE and 3/5 in all plans for LPM to show imrpoved stability to allow pt to do typical activiteis without pain. LTG Duration 07/05/20 LEFS Impairment 52/80 [employer] Inspector Goal (LTG) Pt will improve score to 62/80 to show improved functional ability. LTG Duration 07/05/20 Assessment Summary Assessment Pt able to tolerate standing exercises. Stayed in small range w/mini squats. She did well with balance but was challenged by EC. Still has significant soft tissue tightenss which makes it difficult to do joint mobs much. Physical Therapy Plan Frequency and Duration Frequency of Treatment 2x/Week Duration of Treatment 2 months Plan of Care Start Date 05/04/20 Plan of Care End Date 07/05/20 Next Visit Focus/Plan Next Note Type Treatment Note Next Visit Plan try estim, try standing exercises more as needed, cont STM & joint mobs
--- NOTE | 2020-06-10 17:35 | PT.OTN ---
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 She gets shooting pains into ant & post knee and med and lat thigh. Pt reports she has a terrible time sleeping and has to take ibuprofen & tylenol. Pt reports it depends on what she does during the day for her pain. Pt works at [employer] . She has to stand for the 4 hours at [employer] and she hurts really bad. 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 pt reports the pain is more when seh is tired . She used to walk at [employer] but hasn't d/t weather, pain & COVID. Pt reports the end of summer in Jan and Feb, she could hear a clicking in her knee but not all the time. Pt reports it just has gotten worse since then. Pt reports then her ankle started swelling to. Pt has a L uni knee in jan and saw the PA at the same clinic. PA thinks she has a tight ITB and there may be a meniscus injury to R knee. Mostly the pain feels muscular but notes the pain to ant L knee and into L adductor region. Pt does not remember any injuries . Pt reports PA diagnosed her with OA in R knee. Pt reports PA recommended possibly cortizone shot and she is opting out of that right now. She does not like to take meds typically. Pt has restless legs also and has to take tyleonol for that. Treatment Goals Patient/Caregiver Goals return to walking, dec pain PT-OP-C Subjective Start: 05/04/20 12:29 Freq: Status: Active Protocol: Document 06/10/20 16:46 [facility] (Rec: 06/10/20 17:35 [facility] [id number]) OP-PT Subjective Patient Comments Patient Comments Pt reprots she needs to find a happy medium. If she sits too long then she stiffens up but if she stands too long then she is sore. At night is the worst still but it seems like its getting better. PT-OP-D Balance Start: 05/04/20 12:29 Freq: Status: Active Protocol: Document 05/04/20 16:47 [facility] (Rec: 05/04/20 17:49 [facility] [id number]) Balance Tests Single Limb Standing Single Limb- Right 2 sec pain Single Limb- Left 4 sec PT-OP-F Manual Assessment Start: 05/04/20 12:29 Freq: Status: Active Protocol: Document 05/04/20 16:47 [facility] (Rec: 05/04/20 17:49 [facility] [id number]) Manual Assessments Soft Tissue Assessment Soft Tissue Mobility Assessment tender at med >lat joint line, adductors, ITB, HS & quad, pes anserene PT-OP-G Mobility & Gait Start: 05/04/20 12:29 Freq: Status: Active Protocol: Document 05/04/20 16:47 [facility] (Rec: 05/04/20 17:49 [facility] [id number]) OP Gait Assessment Comments Gait Comments Pt has inc lat leaning B and dec push off on L side and dec stance time PT-OP-J Posture/Palpation/Skin Start: 05/04/20 12:29 Freq: Status: Active Protocol: Document 05/04/20 16:47 [facility] (Rec: 05/04/20 17:49 [facility] [id number]) Posture Evaluation Randy Postural Classification System Randy Postural Classifications Posterior/Posterior Lumbar Protective Mechanism Left AP 2 Lumbar Protective Mechanism Right AP 0 Lumbar Protective Mechanism Left PA 2 Lumbar Protective Mechanism Right PA 0 PT-OP-K Range of Motion Start: 05/04/20 12:29 Freq: Status: Active Protocol: Document 05/04/20 16:47 [facility] (Rec: 05/04/20 17:49 [facility] [id number]) Knee Goniometric Range of Motion Knee Right Flexion Active (degrees) 121 Extension Active (degrees) 12 Left Flexion Active (degrees) 131 Extension Active (degrees) 5 PT-OP-L Special Tests Start: 05/04/20 12:29 Freq: Status: Active Protocol: Document 05/04/20 16:47 [facility] (Rec: 05/04/20 17:49 [facility] [id number]) Special Tests Knee Special Tests Amparo Test Test Results pain but no clicking Librado Test Results R hip flexor & quad tightness, L mild quad tightness Straight Leg Raise Test Results 92 L, 71 R Varus- 25 Degrees Test Results neg R Valgus- 25 Degrees Test Results neg R Compa's Test Results neg R Anterior Draw Test Results neg R Posterior Draw Test Results neg R PT-OP-M Strength Start: 05/04/20 12:29 Freq: Status: Active Protocol: Document 05/04/20 16:47 [facility] (Rec: 05/04/20 17:49 [facility] [id number]) Hip Strength Hip Manual Muscle Testing Right Flexion (L2) 3+ Fair+ Extension (S1) 2+ Poor+ Abduction 3 Fair Adduction 2+ Poor+ External Rotation 3 Fair Internal Rotation 3 Fair Left Flexion (L2) 4- Good- Extension (S1) 2+ Poor+ Abduction 4- Good- Adduction 3+ Fair+ External Rotation 3+ Fair+ Internal Rotation 4- Good- Knee Strength Knee Manual Muscle Testing Right Flexion (S2) 4- Good- Extension (L3) 4- Good- Left Flexion (S2) 4 Good Extension (L3) 5 Normal Ankle/Foot Strength Ankle and Foot Manual Muscle Testing Right Dorsiflexion (L4) 5 Normal Plantarflexion (S1) 5 Normal Left Dorsiflexion (L4) 5 Normal Plantarflexion (S1) 5 Normal PT-OP-Q Treatments Start: 05/04/20 12:29 Freq: Status: Active Protocol: Document 06/10/20 16:46 [facility] (Rec: 06/10/20 17:35 [facility] [id number]) Cardio Equipment Recumbent Elliptical (Biodex) Duration (Minutes) 7 Resistance 7 Seat Position 6 Gym Equipment Shuttle Balance blue clips Reps/Duration head turns Comments fwd&side: WBOS & NBOS fwd: staggered stance Therapeutic Exercises Standing Exercises squat Standing Exercise Name mini on wall Side bilateral Reps/Minutes 15 Comments w/PT resistance lat for abd side step Side bilateral Equipment Used yellow Reps/Minutes 20ft Manual Therapy Treatment Soft Tissue Mobilization HS Body Location R med HS & calf Mobilization Type Rolling Intensity/Depth Moderate Joint Mobilizations tibiofemoral Joint R Direction PA Grade III PT-OP-R Modalities Start: 05/04/20 12:29 Freq: Status: Active Protocol: Document 06/10/20 16:46 [facility] (Rec: 06/10/20 17:35 [facility] [id number]) Hot Pack/Cold Pack Treatment Cold Pack Location R knee & quad Patient Position Hooklying Treatment Duration (minutes) 10 PT-OP-T Assessment and Plan Start: 05/04/20 12:29 Freq: Status: Active Protocol: Document 06/10/20 16:46 [facility] (Rec: 06/10/20 17:35 [facility] [id number]) Physical Therapy Assessment Goals ROM Short Term Goal (STG) Pt will have at least 5-130 deg ROM of R knee without inc pain. STG Duration 06/04/20 Occupational Health Coordinator Goal (LTG) Pt will be able to ascend and descend stairs without inc pain. LTG Duration 07/05/20 activities Short Term Goal (STG) Pt will be able to do typical walks at [facility] 3x/week with no more than 3/10 pain. STG Duration 06/13/20 Occupational Health Coordinator Goal (LTG) Pt iwll be able to stand for full volunteer shifts without increased pain. LTG Duration 07/05/20 strength Short Term Goal (STG) pt will be indep with HEP STG Duration 06/04/20 Occupational Health Coordinator Goal (LTG) Pt will score at least 4+/5 on all planes for MMT for B LE and 3/5 in all plans for LPM to show imrpoved stability to allow pt to do typical activiteis without pain. LTG Duration 07/05/20 LEFS Impairment 52/80 Occupational Health Coordinator Goal (LTG) Pt will improve score to 62/80 to show improved functional ability. LTG Duration 07/05/20 Assessment Summary Assessment Pt was able to tolerate more standign exercises and was able to do squats with furthe rrange. She is tolerating stronger STM at this time without c/o pain with less notable tightness. Physical Therapy Plan Frequency and Duration Frequency of Treatment 2x/Week Duration of Treatment 2 months Plan of Care Start Date 05/04/20 Plan of Care End Date 07/05/20 Next Visit Focus/Plan Next Note Type Treatment Note Next Visit Plan try estim, try standing exercises more as needed, cont STM & joint mobs
--- NOTE | 2020-06-16 13:50 | PT.OTN ---
Current Diagnoses Unilateral primary osteoarthritis, right knee (06/16/20) Trochanteric bursitis, right hip (06/16/20) Difficulty in walking, not elsewhere classified (06/16/20) Weakness (06/16/20) Physical Therapy Treatment Note PT-OP-A Visit Information Start: 05/04/20 12:29 Freq: Status: Active Protocol: Document 06/16/20 12:59 [facility] (Rec: 06/16/20 13:49 [facility] [id number]) Out-Patient Physical Therapy Visit Information Visit Information Visit Type Treatment Note Visit Start Time 13:00 Visit Stop Time 13:53 Total Visit Minutes 53 Visit Number 7 Number of PRE ALGEBRA TEACHER Visits 0 PT-OP-B Current Condition Start: 05/04/20 12:29 Freq: Status: Active Protocol: Document 05/04/20 16:47 [facility] (Rec: 05/04/20 17:49 [facility] [id number]) Current Condition History of Current Condition Onset Date end of fall Current Complaints R knee & thigh History of Current Condition Pt reports she cannot straighten her R leg out for any length of time. She gets shooting pains into ant & post knee and med and lat thigh. Pt reports she has a terrible time sleeping and has to take ibuprofen & tylenol. Pt reports it depends on what she does during the day for her pain. Pt works at [employer] . She has to stand for the 4 hours at [employer] and she hurts really bad. 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 pt reports the pain is more when seh is tired . She used to walk at [employer] but hasn't d/t weather, pain & COVID. Pt reports the end of summer in Jan and Feb, she could hear a clicking in her knee but not all the time. Pt reports it just has gotten worse since then. Pt reports then her ankle started swelling to. Pt has a L uni knee in jan and saw the PA at the same clinic. PA thinks she has a tight ITB and there may be a meniscus injury to R knee. Mostly the pain feels muscular but notes the pain to ant L knee and into L adductor region. Pt does not remember any injuries . Pt reports PA diagnosed her with OA in R knee. Pt reports PA recommended possibly cortizone shot and she is opting out of that right now. She does not like to take meds typically. Pt has restless legs also and has to take tyleonol for that. Treatment Goals Patient/Caregiver Goals return to walking, dec pain PT-OP-C Subjective Start: 05/04/20 12:29 Freq: Status: Active Protocol: Document 06/16/20 12:59 [facility] (Rec: 06/16/20 13:49 [facility] [id number]) OP-PT Subjective Patient Comments Patient Comments Pt reports night is worst PT-OP-D Balance Start: 05/04/20 12:29 Freq: Status: Active Protocol: Document 05/04/20 16:47 [facility] (Rec: 05/04/20 17:49 [facility] [id number]) Balance Tests Single Limb Standing Single Limb- Right 2 sec pain Single Limb- Left 4 sec PT-OP-F Manual Assessment Start: 05/04/20 12:29 Freq: Status: Active Protocol: Document 05/04/20 16:47 [facility] (Rec: 05/04/20 17:49 [facility] [id number]) Manual Assessments Soft Tissue Assessment Soft Tissue Mobility Assessment tender at med >lat joint line, adductors, ITB, HS & quad, pes anserene PT-OP-G Mobility & Gait Start: 05/04/20 12:29 Freq: Status: Active Protocol: Document 05/04/20 16:47 [facility] (Rec: 05/04/20 17:49 [facility] [id number]) OP Gait Assessment Comments Gait Comments Pt has inc lat leaning B and dec push off on L side and dec stance time PT-OP-J Posture/Palpation/Skin Start: 05/04/20 12:29 Freq: Status: Active Protocol: Document 05/04/20 16:47 [facility] (Rec: 05/04/20 17:49 [facility] [id number]) Posture Evaluation Randy Postural Classification System Randy Postural Classifications Posterior/Posterior Lumbar Protective Mechanism Left AP 2 Lumbar Protective Mechanism Right AP 0 Lumbar Protective Mechanism Left PA 2 Lumbar Protective Mechanism Right PA 0 PT-OP-K Range of Motion Start: 05/04/20 12:29 Freq: Status: Active Protocol: Document 05/04/20 16:47 [facility] (Rec: 05/04/20 17:49 [facility] [id number]) Knee Goniometric Range of Motion Knee Right Flexion Active (degrees) 121 Extension Active (degrees) 12 Left Flexion Active (degrees) 131 Extension Active (degrees) 5 PT-OP-L Special Tests Start: 05/04/20 12:29 Freq: Status: Active Protocol: Document 05/04/20 16:47 [facility] (Rec: 05/04/20 17:49 [facility] [id number]) Special Tests Knee Special Tests Amparo Test Test Results pain but no clicking Librado Test Results R hip flexor & quad tightness, L mild quad tightness Straight Leg Raise Test Results 92 L, 71 R Varus- 25 Degrees Test Results neg R Valgus- 25 Degrees Test Results neg R Compa's Test Results neg R Anterior Draw Test Results neg R Posterior Draw Test Results neg R PT-OP-M Strength Start: 05/04/20 12:29 Freq: Status: Active Protocol: Document 05/04/20 16:47 [facility] (Rec: 05/04/20 17:49 [facility] [id number]) Hip Strength Hip Manual Muscle Testing Right Flexion (L2) 3+ Fair+ Extension (S1) 2+ Poor+ Abduction 3 Fair Adduction 2+ Poor+ External Rotation 3 Fair Internal Rotation 3 Fair Left Flexion (L2) 4- Good- Extension (S1) 2+ Poor+ Abduction 4- Good- Adduction 3+ Fair+ External Rotation 3+ Fair+ Internal Rotation 4- Good- Knee Strength Knee Manual Muscle Testing Right Flexion (S2) 4- Good- Extension (L3) 4- Good- Left Flexion (S2) 4 Good Extension (L3) 5 Normal Ankle/Foot Strength Ankle and Foot Manual Muscle Testing Right Dorsiflexion (L4) 5 Normal Plantarflexion (S1) 5 Normal Left Dorsiflexion (L4) 5 Normal Plantarflexion (S1) 5 Normal PT-OP-Q Treatments Start: 05/04/20 12:29 Freq: Status: Active Protocol: Document 06/16/20 12:59 [facility] (Rec: 06/16/20 13:49 [facility] [id number]) Cardio Equipment Recumbent Elliptical (Biodex) Duration (Minutes) 7 Resistance 7 Seat Position 6 Gym Equipment Shuttle Balance blue clips Reps/Duration head turns Comments fwd&side: WBOS & NBOS fwd: staggered stance Therapeutic Exercises Standing Exercises lunges Standing Exercise Name mini Side bilateral Equipment Used rail Reps/Minutes 8 squat Standing Exercise Name mini on wall Side bilateral Equipment Used lvl 2 Reps/Minutes 20 Therapeutic Activity Therapeutic Activity sleep Comments long pillow btwn knees Manual Therapy Treatment Soft Tissue Mobilization adductors Body Location R Mobilization Type Rolling Intensity/Depth Moderate Body Position Hooklying Neuro Re-Education Treatment Balance Activities tandem stance Details B trials SLS Details B in mirror PT-OP-R Modalities Start: 05/04/20 12:29 Freq: Status: Active Protocol: Document 06/16/20 12:59 [facility] (Rec: 06/16/20 13:49 [facility] [id number]) Electric Stimulation Electric Stimulation Interferential Current (IFC) Body Location R knee Duration (Minutes) 10 Combined With Heat/Cold Cold Pack PT-OP-T Assessment and Plan Start: 05/04/20 12:29 Freq: Status: Active Protocol: Document 06/16/20 12:59 [facility] (Rec: 06/16/20 13:49 [facility] [id number]) Physical Therapy Assessment Goals ROM Short Term Goal (STG) Pt will have at least 5-130 deg ROM of R knee without inc pain. STG Duration 06/04/20 Nursing Home Goal (LTG) Pt will be able to ascend and descend stairs without inc pain. LTG Duration 07/05/20 activities Short Term Goal (STG) Pt will be able to do typical walks at [facility] 3x/week with no more than 3/10 pain. 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 LTG Duration 07/05/20 strength Short Term Goal (STG) pt will be indep with HEP STG Duration 06/04/20 Nursing Home Goal (LTG) Pt will score at least 4+/5 on all planes for MMT for B LE and 3/5 in all plans for LPM to show imrpoved stability to allow pt to do typical activiteis without pain. LTG Duration 07/05/20 LEFS Impairment 52/80 Nursing Home Goal (LTG) Pt will improve score to 62/80 to show improved functional ability. LTG Duration 07/05/20 Assessment Summary Assessment Pt did well with all exercises but noted quad fatigue even with balance exericses. She is improving with soft tissue mobility and tolerates deeper massage w/o pain. Physical Therapy Plan Frequency and Duration Frequency of Treatment 2x/Week Duration of Treatment 2 months Plan of Care Start Date 05/04/20 Plan of Care End Date 07/05/20 Next Visit Focus/Plan Next Note Type Treatment Note Next Visit Plan assess response to stim, progress strengthening
--- NOTE | 2020-06-18 15:20 | PT.OTN ---
Current Diagnoses Unilateral primary osteoarthritis, right knee (06/18/20) Trochanteric bursitis, right hip (06/18/20) Difficulty in walking, not elsewhere classified (06/18/20) Weakness (06/18/20) Physical Therapy Treatment Note PT-OP-A Visit Information Start: 05/04/20 12:29 Freq: Status: Active Protocol: Document 06/18/20 14:32 [facility] (Rec: 06/18/20 15:20 [facility] [id number]) Out-Patient Physical Therapy Visit Information Visit Information Visit Type Treatment Note Visit Start Time 14:30 Visit Stop Time 15:25 Total Visit Minutes 55 Visit Number 8 Number of MEDICAL ADMINISTRATIVE SPECIALIST Visits 0 PT-OP-B Current Condition Start: 05/04/20 12:29 Freq: Status: Active Protocol: Document 05/04/20 16:47 [facility] (Rec: 05/04/20 17:49 [facility] [id number]) Current Condition History of Current Condition Onset Date end of fall Current Complaints R knee & thigh History of Current Condition Pt reports she cannot straighten her R leg out for any length of time. She gets shooting pains into ant & post knee and med and lat thigh. Pt reports she has a terrible time sleeping and has to take ibuprofen & tylenol. Pt reports it depends on what she does during the day for her pain. Pt works at [employer] . She has to stand for the 4 hours at [employer] and she hurts really bad. 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 pt reports the pain is more when seh is tired . She used to walk at [employer] but hasn't d/t weather, pain & COVID. Pt reports the end of summer in Jan and Feb, she could hear a clicking in her knee but not all the time. Pt reports it just has gotten worse since then. Pt reports then her ankle started swelling to. Pt has a L uni knee in jan and saw the PA at the same clinic. PA thinks she has a tight ITB and there may be a meniscus injury to R knee. Mostly the pain feels muscular but notes the pain to ant L knee and into L adductor region. Pt does not remember any injuries . Pt reports PA diagnosed her with OA in R knee. Pt reports PA recommended possibly cortizone shot and she is opting out of that right now. She does not like to take meds typically. Pt has restless legs also and has to take tyleonol for that. Treatment Goals Patient/Caregiver Goals return to walking, dec pain PT-OP-C Subjective Start: 05/04/20 12:29 Freq: Status: Active Protocol: Document 06/18/20 14:32 [facility] (Rec: 06/18/20 15:20 [facility] [id number]) OP-PT Subjective Patient Comments Patient Comments Pt walked a mile with yesterday and pain was okay. Pt reports Monday night was rough night. PT-OP-D Balance Start: 05/04/20 12:29 Freq: Status: Active Protocol: Document 05/04/20 16:47 [facility] (Rec: 05/04/20 17:49 [facility] [id number]) Balance Tests Single Limb Standing Single Limb- Right 2 sec pain Single Limb- Left 4 sec PT-OP-F Manual Assessment Start: 05/04/20 12:29 Freq: Status: Active Protocol: Document 05/04/20 16:47 [facility] (Rec: 05/04/20 17:49 [facility] [id number]) Manual Assessments Soft Tissue Assessment Soft Tissue Mobility Assessment tender at med >lat joint line, adductors, ITB, HS & quad, pes anserene PT-OP-G Mobility & Gait Start: 05/04/20 12:29 Freq: Status: Active Protocol: Document 05/04/20 16:47 [facility] (Rec: 05/04/20 17:49 [facility] [id number]) OP Gait Assessment Comments Gait Comments Pt has inc lat leaning B and dec push off on L side and dec stance time PT-OP-J Posture/Palpation/Skin Start: 05/04/20 12:29 Freq: Status: Active Protocol: Document 05/04/20 16:47 [facility] (Rec: 05/04/20 17:49 [facility] [id number]) Posture Evaluation Randy Postural Classification System Randy Postural Classifications Posterior/Posterior Lumbar Protective Mechanism Left AP 2 Lumbar Protective Mechanism Right AP 0 Lumbar Protective Mechanism Left PA 2 Lumbar Protective Mechanism Right PA 0 PT-OP-K Range of Motion Start: 05/04/20 12:29 Freq: Status: Active Protocol: Document 05/04/20 16:47 [facility] (Rec: 05/04/20 17:49 [facility] [id number]) Knee Goniometric Range of Motion Knee Right Flexion Active (degrees) 121 Extension Active (degrees) 12 Left Flexion Active (degrees) 131 Extension Active (degrees) 5 PT-OP-L Special Tests Start: 05/04/20 12:29 Freq: Status: Active Protocol: Document 05/04/20 16:47 [facility] (Rec: 05/04/20 17:49 [facility] [id number]) Special Tests Knee Special Tests Amparo Test Test Results pain but no clicking Librado Test Results R hip flexor & quad tightness, L mild quad tightness Straight Leg Raise Test Results 92 L, 71 R Varus- 25 Degrees Test Results neg R Valgus- 25 Degrees Test Results neg R Compa's Test Results neg R Anterior Draw Test Results neg R Posterior Draw Test Results neg R PT-OP-M Strength Start: 05/04/20 12:29 Freq: Status: Active Protocol: Document 05/04/20 16:47 [facility] (Rec: 05/04/20 17:49 [facility] [id number]) Hip Strength Hip Manual Muscle Testing Right Flexion (L2) 3+ Fair+ Extension (S1) 2+ Poor+ Abduction 3 Fair Adduction 2+ Poor+ External Rotation 3 Fair Internal Rotation 3 Fair Left Flexion (L2) 4- Good- Extension (S1) 2+ Poor+ Abduction 4- Good- Adduction 3+ Fair+ External Rotation 3+ Fair+ Internal Rotation 4- Good- Knee Strength Knee Manual Muscle Testing Right Flexion (S2) 4- Good- Extension (L3) 4- Good- Left Flexion (S2) 4 Good Extension (L3) 5 Normal Ankle/Foot Strength Ankle and Foot Manual Muscle Testing Right Dorsiflexion (L4) 5 Normal Plantarflexion (S1) 5 Normal Left Dorsiflexion (L4) 5 Normal Plantarflexion (S1) 5 Normal PT-OP-Q Treatments Start: 05/04/20 12:29 Freq: Status: Active Protocol: Document 06/18/20 14:32 [facility] (Rec: 06/18/20 15:20 [facility] [id number]) Cardio Equipment Recumbent Elliptical ([employer]) Duration (Minutes) 7 Resistance 7 Seat Position 6 Gym Equipment Shuttle Balance red clips Comments fwd & Side: WBOS & NBOS fwd: staggered stance Therapeutic Exercises Standing Exercises step ups Standing Exercise Name 5 in Side right Reps/Minutes 10 Comments work on wt shift stretch Standing Exercise Name KALPANA Side bilateral Reps/Minutes 1 min squat Standing Exercise Name mini on wall Side bilateral Reps/Minutes 20 Manual Therapy Treatment Soft Tissue Mobilization quads Body Location R distal Mobilization Type Rolling Intensity/Depth Moderate Body Position Hooklying Taping KT Body Location 3 Y for med knee glide Type of Tape Kinesio Tape Skin Inspection no issues Neuro Re-Education Treatment Balance Activities SLS Details B in mirror PT-OP-R Modalities Start: 05/04/20 12:29 Freq: Status: Active Protocol: Document 06/18/20 14:32 [facility] (Rec: 06/18/20 15:20 [facility] [id number]) Electric Stimulation Electric Stimulation Interferential Current (IFC) Body Location R knee Duration (Minutes) 10 Combined With Heat/Cold Cold Pack PT-OP-T Assessment and Plan Start: 05/04/20 12:29 Freq: Status: Active Protocol: Document 06/18/20 14:32 [facility] (Rec: 06/18/20 15:20 [facility] [id number]) Physical Therapy Assessment Goals ROM Short Term Goal (STG) Pt will have at least 5-130 deg ROM of R knee without inc pain. STG Duration 06/04/20 Music Educator Goal (LTG) Pt will be able to ascend and descend stairs without inc pain. LTG Duration 07/05/20 activities Short Term Goal (STG) Pt will be able to do typical walks at [facility] 3x/week with no more than 3/10 pain. STG Duration 06/13/20 Music Educator Goal (LTG) Pt iwll be able to stand for full volunteer shifts without increased pain. LTG Duration 07/05/20 strength Short Term Goal (STG) pt will be indep with HEP STG Duration 06/04/20 Music Educator Goal (LTG) Pt will score at least 4+/5 on all planes for MMT for B LE and 3/5 in all plans for LPM to show imrpoved stability to allow pt to do typical activiteis without pain. LTG Duration 07/05/20 LEFS Impairment 52/80 Music Educator Goal (LTG) Pt will improve score to 62/80 to show improved functional ability. LTG Duration 07/05/20 Assessment Summary Assessment Pt did well with progression of exercises today and was able to do step up without pain w/cueing for wt shift. Physical Therapy Plan Frequency and Duration Frequency of Treatment 2x/Week Duration of Treatment 2 months Plan of Care Start Date 05/04/20 Plan of Care End Date 07/05/20 Next Visit Focus/Plan Next Note Type Treatment Note Next Visit Plan cont to work on strengthening & ability to move knee w/o pain
--- NOTE | 2020-06-23 10:31 | PT.OTN ---
Current Diagnoses Unilateral primary osteoarthritis, right knee (06/23/20) Trochanteric bursitis, right hip (06/23/20) Difficulty in walking, not elsewhere classified (06/23/20) Weakness (06/23/20) Physical Therapy Treatment Note PT-OP-A Visit Information Start: 05/04/20 12:29 Freq: Status: Active Protocol: Document 06/23/20 09:08 [facility] (Rec: 06/23/20 09:58 [facility] [id number]) Out-Patient Physical Therapy Visit Information Visit Information Visit Type Treatment Note Visit Start Time 09:02 Visit Stop Time 09:55 Total Visit Minutes 53 Visit Number 9 Number of CORN SHREDDER Visits 0 PT-OP-B Current Condition Start: 05/04/20 12:29 Freq: Status: Active Protocol: Document 05/04/20 16:47 [facility] (Rec: 05/04/20 17:49 [facility] [id number]) Current Condition History of Current Condition Onset Date end of fall Current Complaints R knee & thigh History of Current Condition Pt reports she cannot straighten her R leg out for any length of time. She gets shooting pains into ant & post knee and med and lat thigh. Pt reports she has a terrible time sleeping and has to take ibuprofen & tylenol. Pt reports it depends on what she does during the day for her pain. Pt works at [employer] . She has to stand for the 4 hours at [employer] and she hurts really bad. 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 pt reports the pain is more when seh is tired . She used to walk at [employer] but hasn't d/t weather, pain & COVID. Pt reports the end of summer in Jan and Feb, she could hear a clicking in her knee but not all the time. Pt reports it just has gotten worse since then. Pt reports then her ankle started swelling to. Pt has a L uni knee in jan and saw the PA at the same clinic. PA thinks she has a tight ITB and there may be a meniscus injury to R knee. Mostly the pain feels muscular but notes the pain to ant L knee and into L adductor region. Pt does not remember any injuries . Pt reports PA diagnosed her with OA in R knee. Pt reports PA recommended possibly cortizone shot and she is opting out of that right now. She does not like to take meds typically. Pt has restless legs also and has to take tyleonol for that. Treatment Goals Patient/Caregiver Goals return to walking, dec pain PT-OP-C Subjective Start: 05/04/20 12:29 Freq: Status: Active Protocol: Document 06/23/20 09:08 [facility] (Rec: 06/23/20 09:58 [facility] [id number]) OP-PT Subjective Patient Comments Patient Comments Pt reports her knee was a little stirred up after session but better later. NOtes the long pillow helped but shegot tooo hot in the night. Reprots 3 walks since last session and seh just felt tired after PT-OP-D Balance Start: 05/04/20 12:29 Freq: Status: Active Protocol: Document 05/04/20 16:47 [facility] (Rec: 05/04/20 17:49 [facility] [id number]) Balance Tests Single Limb Standing Single Limb- Right 2 sec pain Single Limb- Left 4 sec PT-OP-F Manual Assessment Start: 05/04/20 12:29 Freq: Status: Active Protocol: Document 05/04/20 16:47 [facility] (Rec: 05/04/20 17:49 [facility] [id number]) Manual Assessments Soft Tissue Assessment Soft Tissue Mobility Assessment tender at med >lat joint line, adductors, ITB, HS & quad, pes anserene PT-OP-G Mobility & Gait Start: 05/04/20 12:29 Freq: Status: Active Protocol: Document 05/04/20 16:47 [facility] (Rec: 05/04/20 17:49 [facility] [id number]) OP Gait Assessment Comments Gait Comments Pt has inc lat leaning B and dec push off on L side and dec stance time PT-OP-J Posture/Palpation/Skin Start: 05/04/20 12:29 Freq: Status: Active Protocol: Document 05/04/20 16:47 [facility] (Rec: 05/04/20 17:49 [facility] [id number]) Posture Evaluation Randy Postural Classification System Randy Postural Classifications Posterior/Posterior Lumbar Protective Mechanism Left AP 2 Lumbar Protective Mechanism Right AP 0 Lumbar Protective Mechanism Left PA 2 Lumbar Protective Mechanism Right PA 0 PT-OP-K Range of Motion Start: 05/04/20 12:29 Freq: Status: Active Protocol: Document 05/04/20 16:47 [facility] (Rec: 05/04/20 17:49 [facility] [id number]) Knee Goniometric Range of Motion Knee Right Flexion Active (degrees) 121 Extension Active (degrees) 12 Left Flexion Active (degrees) 131 Extension Active (degrees) 5 PT-OP-L Special Tests Start: 05/04/20 12:29 Freq: Status: Active Protocol: Document 05/04/20 16:47 [facility] (Rec: 05/04/20 17:49 [facility] [id number]) Special Tests Knee Special Tests Amparo Test Test Results pain but no clicking Librado Test Results R hip flexor & quad tightness, L mild quad tightness Straight Leg Raise Test Results 92 L, 71 R Varus- 25 Degrees Test Results neg R Valgus- 25 Degrees Test Results neg R Compa's Test Results neg R Anterior Draw Test Results neg R Posterior Draw Test Results neg R PT-OP-M Strength Start: 05/04/20 12:29 Freq: Status: Active Protocol: Document 05/04/20 16:47 [facility] (Rec: 05/04/20 17:49 [facility] [id number]) Hip Strength Hip Manual Muscle Testing Right Flexion (L2) 3+ Fair+ Extension (S1) 2+ Poor+ Abduction 3 Fair Adduction 2+ Poor+ External Rotation 3 Fair Internal Rotation 3 Fair Left Flexion (L2) 4- Good- Extension (S1) 2+ Poor+ Abduction 4- Good- Adduction 3+ Fair+ External Rotation 3+ Fair+ Internal Rotation 4- Good- Knee Strength Knee Manual Muscle Testing Right Flexion (S2) 4- Good- Extension (L3) 4- Good- Left Flexion (S2) 4 Good Extension (L3) 5 Normal Ankle/Foot Strength Ankle and Foot Manual Muscle Testing Right Dorsiflexion (L4) 5 Normal Plantarflexion (S1) 5 Normal Left Dorsiflexion (L4) 5 Normal Plantarflexion (S1) 5 Normal PT-OP-Q Treatments Start: 05/04/20 12:29 Freq: Status: Active Protocol: Document 06/23/20 09:08 [facility] (Rec: 06/23/20 09:58 [facility] [id number]) Cardio Equipment Recumbent Elliptical ([employer]) Duration (Minutes) 7 Resistance 7 Seat Position 6 Gym Equipment Shuttle Balance red clips Comments fwd & Side: WBOS & NBOS fwd: staggered stance Therapeutic Exercises Standing Exercises step ups Standing Exercise Name 4 in Side right Reps/Minutes 15 Comments step downs in mirror w/focus on R Knee position lunges Standing Exercise Name mini Side bilateral Equipment Used rail Reps/Minutes 10 squat Standing Exercise Name mini over chair Side bilateral Equipment Used rail Reps/Minutes 10 Manual Therapy Treatment Soft Tissue Mobilization quads Body Location R distal & proximal Mobilization Type Rolling Intensity/Depth Moderate Body Position Hooklying Joint Mobilizations tibiofemoral Joint R Direction PA in flex& IR mob w/ext PT-OP-R Modalities Start: 05/04/20 12:29 Freq: Status: Active Protocol: Document 06/23/20 09:08 [facility] (Rec: 06/23/20 09:58 [facility] [id number]) Electric Stimulation Electric Stimulation Interferential Current (IFC) Body Location R knee Duration (Minutes) 10 Combined With Heat/Cold Cold Pack PT-OP-T Assessment and Plan Start: 05/04/20 12:29 Freq: Status: Active Protocol: Document 06/23/20 09:08 [facility] (Rec: 06/23/20 09:58 [facility] [id number]) Physical Therapy Assessment Goals ROM Short Term Goal (STG) Pt will have at least 5-130 deg ROM of R knee without inc pain. STG Duration 06/04/20 Senior Living Goal (LTG) Pt will be able to ascend and descend stairs without inc pain. LTG Duration 07/05/20 activities Short Term Goal (STG) Pt will be able to do typical walks at [facility] 3x/week with no more than 3/10 pain. 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 LTG Duration 07/05/20 strength Short Term Goal (STG) pt will be indep with HEP STG Duration 06/04/20 Biofuels Research Scientist Goal (LTG) Pt will score at least 4+/5 on all planes for MMT for B LE and 3/5 in all plans for LPM to show imrpoved stability to allow pt to do typical activiteis without pain. LTG Duration 07/05/20 LEFS Impairment 52/80 Senior Living Goal (LTG) Pt will improve score to 62/80 to show improved functional ability. LTG Duration 07/05/20 Assessment Summary Assessment Pt did well with exercises but requires cueing for knee position for all squat, lunge & step down exercises today. Improving balance overall. TIghtness in quad in librado stertch position improved w/ manual Physical Therapy Plan Frequency and Duration Frequency of Treatment 2x/Week Duration of Treatment 2 months Plan of Care Start Date 05/04/20 Plan of Care End Date 07/05/20 Next Visit Focus/Plan Next Note Type Treatment Note Next Visit Plan cont to work on strengthening & ability to move knee w/o pain
--- NOTE | 2020-06-25 09:51 | PT.OTN ---
Current Diagnoses Unilateral primary osteoarthritis, right knee (06/25/20) Trochanteric bursitis, right hip (06/25/20) Difficulty in walking, not elsewhere classified (06/25/20) Weakness (06/25/20) Physical Therapy Treatment Note PT-OP-A Visit Information Start: 05/04/20 12:29 Freq: Status: Active Protocol: Document 06/25/20 08:59 [facility] (Rec: 06/25/20 09:08 [facility] [id number]) Out-Patient Physical Therapy Visit Information Visit Information Visit Type Progress Note Visit Note 05/24 Visit Start Time 09:00 Visit Stop Time 09:55 Total Visit Minutes 55 Visit Number 10 Number of PROCEDURE WRITER Visits 0 PT-OP-B Current Condition Start: 05/04/20 12:29 Freq: Status: Active Protocol: Document 05/04/20 16:47 [facility] (Rec: 05/04/20 17:49 [facility] [id number]) Current Condition History of Current Condition Onset Date end of fall Current Complaints R knee & thigh History of Current Condition Pt reports she cannot straighten her R leg out for any length of time. She gets shooting pains into ant & post knee and med and lat thigh. Pt reports she has a terrible time sleeping and has to take ibuprofen & tylenol. Pt reports it depends on what she does during the day for her pain. Pt works at [employer] . She has to stand for the 4 hours at [employer] and she hurts really bad. 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 pt reports the pain is more when seh is tired . She used to walk at [employer] but hasn't d/t weather, pain & COVID. Pt reports the end of summer in Jan and Feb, she could hear a clicking in her knee but not all the time. Pt reports it just has gotten worse since then. Pt reports then her ankle started swelling to. Pt has a L uni knee in jan and saw the PA at the same clinic. PA thinks she has a tight ITB and there may be a meniscus injury to R knee. Mostly the pain feels muscular but notes the pain to ant L knee and into L adductor region. Pt does not remember any injuries . Pt reports PA diagnosed her with OA in R knee. Pt reports PA recommended possibly cortizone shot and she is opting out of that right now. She does not like to take meds typically. Pt has restless legs also and has to take tyleonol for that. Treatment Goals Patient/Caregiver Goals return to walking, dec pain PT-OP-C Subjective Start: 05/04/20 12:29 Freq: Status: Active Protocol: Document 06/25/20 08:59 [facility] (Rec: 06/25/20 09:08 [facility] [id number]) OP-PT Subjective Patient Comments Patient Comments Yesterday she did not get her walk in. Notes last night was not a good night. Inside of her knee was tender and nothing helped. She got up every 2 hours probably 5 times last night. This AM it is coke still cleaner on the inside and feels like its been bruised. PT-OP-D Balance Start: 05/04/20 12:29 Freq: Status: Active Protocol: Document 05/04/20 16:47 [facility] (Rec: 05/04/20 17:49 [facility] [id number]) Balance Tests Single Limb Standing Single Limb- Right 2 sec pain Single Limb- Left 4 sec PT-OP-F Manual Assessment Start: 05/04/20 12:29 Freq: Status: Active Protocol: Document 05/04/20 16:47 [facility] (Rec: 05/04/20 17:49 [facility] [id number]) Manual Assessments Soft Tissue Assessment Soft Tissue Mobility Assessment tender at med >lat joint line, adductors, ITB, HS & quad, pes anserene PT-OP-G Mobility & Gait Start: 05/04/20 12:29 Freq: Status: Active Protocol: Document 05/04/20 16:47 [facility] (Rec: 05/04/20 17:49 [facility] [id number]) OP Gait Assessment Comments Gait Comments Pt has inc lat leaning B and dec push off on L side and dec stance time PT-OP-J Posture/Palpation/Skin Start: 05/04/20 12:29 Freq: Status: Active Protocol: Document 06/25/20 08:59 [facility] (Rec: 06/25/20 09:17 [facility] [id number]) Posture Evaluation Randy Postural Classification System Lumbar Protective Mechanism Left AP 2 Lumbar Protective Mechanism Right AP 1 Lumbar Protective Mechanism Left PA 2 Lumbar Protective Mechanism Right PA 1 PT-OP-K Range of Motion Start: 05/04/20 12:29 Freq: Status: Active Protocol: Document 06/25/20 08:59 [facility] (Rec: 06/25/20 09:17 [facility] [id number]) Knee Goniometric Range of Motion Knee Right Flexion Active (degrees) 130 Extension Active (degrees) 8 Comments pain w/ext PT-OP-L Special Tests Start: 05/04/20 12:29 Freq: Status: Active Protocol: Document 05/04/20 16:47 [facility] (Rec: 05/04/20 17:49 [facility] [id number]) Special Tests Knee Special Tests Amparo Test Test Results pain but no clicking Librado Test Results R hip flexor & quad tightness, L mild quad tightness Straight Leg Raise Test Results 92 L, 71 R Varus- 25 Degrees Test Results neg R Valgus- 25 Degrees Test Results neg R Compa's Test Results neg R Anterior Draw Test Results neg R Posterior Draw Test Results neg R PT-OP-M Strength Start: 05/04/20 12:29 Freq: Status: Active Protocol: Document 06/25/20 08:59 [facility] (Rec: 06/25/20 09:17 [facility] [id number]) Hip Strength Hip Manual Muscle Testing Right Flexion (L2) 3+ Fair+ Extension (S1) 3 Fair Abduction 3+ Fair+ Adduction 3- Fair- External Rotation 3+ Fair+ Internal Rotation 4 Good Left Flexion (L2) 4- Good- Extension (S1) 3 Fair Abduction 3+ Fair+ Adduction 3 Fair External Rotation 4- Good- Internal Rotation 4+ Good+ Knee Strength Knee Manual Muscle Testing Right Flexion (S2) 4 Good Extension (L3) 4 Good Left Flexion (S2) 4 Good Extension (L3) 5 Normal Ankle/Foot Strength Ankle and Foot Manual Muscle Testing Right Dorsiflexion (L4) 5 Normal Plantarflexion (S1) 5 Normal Left Dorsiflexion (L4) 5 Normal Plantarflexion (S1) 5 Normal PT-OP-Q Treatments Start: 05/04/20 12:29 Freq: Status: Active Protocol: Document 06/25/20 08:59 [facility] (Rec: 06/25/20 09:08 [facility] [id number]) Cardio Equipment Recumbent Bicycle Duration (Minutes) 6 Resistance 5 Seat Position 3 Gym Equipment Shuttle Balance red clips Comments fwd & Side: WBOS & NBOS fwd: staggered stance Therapeutic Exercises Prone Exercises ext Prone Exercise Name alt Side bilateral Reps/Minutes 10 Sidelying Exercises hip add Side bilateral Reps/Minutes 10 hip abd Side bilateral Reps/Minutes 10 clamshell Side bilateral Reps/Minutes 10 Manual Therapy Treatment Soft Tissue Mobilization HS Body Location R med HS Mobilization Type Rolling Intensity/Depth Moderate Body Position Hooklying Joint Mobilizations tibfib Joint proximal Direction PA Grade II tibiofemoral Joint R Direction AP tibia Grade II Comments FM PT-OP-R Modalities Start: 05/04/20 12:29 Freq: Status: Active Protocol: Document 06/25/20 08:59 [facility] (Rec: 06/25/20 09:08 [facility] [id number]) Electric Stimulation Electric Stimulation Interferential Current (IFC) Body Location R knee Duration (Minutes) 10 Combined With Heat/Cold Cold Pack PT-OP-T Assessment and Plan Start: 05/04/20 12:29 Freq: Status: Active Protocol: Document 06/25/20 08:59 [facility] (Rec: 06/25/20 09:08 [facility] [id number]) Physical Therapy Assessment Goals sleep Senior Care Goal (LTG) Pt willb e able to sleep through the night without inc pain LTG Duration 08/23/20 ROM Short Term Goal (STG) Pt will have at least 5-130 deg ROM of R knee without inc pain. 06/25-progressed to 8-130-pain w/ext still STG Duration 07/23/20 [employer] Goal (LTG) Pt will be able to ascend and descend stairs without inc pain. 06/25-pain w/down but up okay LTG Duration 08/13/20 activities Short Term Goal (STG) Pt will be able to do typical walks at [email or web address] 3x/week with no more than 3/10 pain. 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 06/25-Pt reports she can stand for her shifts with more feeling of weakness, heaviness & fatigue LTG Duration 08/01/20 strength Short Term Goal (STG) pt will be indep with HEP STG Duration achieved progressing as needed [employer] Goal (LTG) Pt will score at least 4+/5 on all planes for MMT for B LE and 3/5 in all plans for LPM to show imrpoved stability to allow pt to do typical activiteis without pain. LTG Duration 07/05/20 LEFS Impairment 52/80 Senior Care Goal (LTG) Pt will improve score to 62/80 to show improved functional ability. 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 She would bneeift from cont PT to cont to work on hip stability in order to dec knee pain and leg stability to inc functional ability. Physical Therapy Plan Frequency and Duration Frequency of Treatment 2x/Week Duration of Treatment 2 months Plan of Care Start Date 06/25/20 Plan of Care End Date 08/23/20 Therapeutic Interventions Therapeutic Interventions Aquatic Therapy,Balance Training,Gait Training,Home Exercise Program,Joint Mobilizations,Manual Therapy, Neuromuscular Re-education, Orthotic/Prosthetic Management ,Patient/Caregiver Education, Self-Care/Home Management,Soft Tissue Mobilization,Taping, Therapeutic Activities, Therapeutic Exercises Modalities Cold Pack/Ice Massage,Electric Stimulation,Hot Packs, Infrared Therapy,Iontophoresis ,Ultrasound Next Visit Focus/Plan Next Note Type Treatment Note Next Visit Plan cont to work on strengthening & ability to move knee w/o pain
--- NOTE | 2020-06-25 09:51 | PT.OPPOC ---
Physical, Occupational & Speech Therapy At [facility] Current Diagnoses Unilateral primary osteoarthritis, right knee (06/25/20) Trochanteric bursitis, right hip (06/25/20) Difficulty in walking, not elsewhere classified (06/25/20) Weakness (06/25/20) Visit Care Team Role Provider Type Jess Jordan PA-C Primary Care Provider Advanced Rn Wound Care Specialty: Internal Medicine Address: [address] [place] [address], [address] Email: [email or web address] Fede Moore DO Family Provider Physician Specialty: Internal Medicine Address: [address] [place] [address], [id number] Email: Attending Provider Referring Provider Specialty: Address: Phone: Fax: Email: Plan Of Care PT-OP-T Assessment and Plan Start: 05/04/20 12:29 Freq: Status: Active Protocol: Document 06/25/20 08:59 [facility] (Rec: 06/25/20 09:08 [facility] [id number]) Physical Therapy Assessment Goals sleep Usp Goal (LTG) Pt willb e able to sleep through the night without inc pain LTG Duration 08/23/20 ROM Short Term Goal (STG) Pt will have at least 5-130 deg ROM of R knee without inc pain. 06/25-progressed to 8-130-pain w/ext still STG Duration 07/23/20 Usp Goal (LTG) Pt will be able to ascend and descend stairs without inc pain. 06/25-pain w/down but up okay LTG Duration 08/13/20 activities Short Term Goal (STG) Pt will be able to do typical walks at [employer] 3x/week with no more than 3/10 pain. 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 06/25-Pt reports she can stand for her shifts with more feeling of weakness, heaviness & fatigue LTG Duration 08/01/20 strength Short Term Goal (STG) pt will be indep with HEP STG Duration achieved progressing as needed Usp Goal (LTG) Pt will score at least 4+/5 on all planes for MMT for B LE and 3/5 in all plans for LPM to show imrpoved stability to allow pt to do typical activiteis without pain. LTG Duration 07/05/20 LEFS Impairment 52/80 Usp Goal (LTG) Pt will improve score to 62/80 to show improved functional ability. 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 She would bneeift from cont PT to cont to work on hip stability in order to dec knee pain and leg stability to inc functional ability. Physical Therapy Plan Frequency and Duration Frequency of Treatment 2x/Week Duration of Treatment 2 months Plan of Care Start Date 06/25/20 Plan of Care End Date 08/23/20 Therapeutic Interventions Therapeutic Interventions Aquatic Therapy,Balance Training,Gait Training,Home Exercise Program,Joint Mobilizations,Manual Therapy, Neuromuscular Re-education, Orthotic/Prosthetic Management ,Patient/Caregiver Education, Self-Care/Home Management,Soft Tissue Mobilization,Taping, Therapeutic Activities, Therapeutic Exercises Modalities Cold Pack/Ice Massage,Electric Stimulation,Hot Packs, Infrared Therapy,Iontophoresis ,Ultrasound Next Visit Focus/Plan Next Note Type Treatment Note Next Visit Plan cont to work on strengthening & ability to move knee w/o pain Plan of Care Dates Plan of Care Start Date 06/25/20 Plan of Care End Date 08/23/20 Electronically Signed by: Radha Wesley, PT 06/25/20 0965 Please Sign and Return: I have reviewed this Plan of Care and certify that the skilled therapy services above are required to meet the patient?s needs. Physician Signature Date Printed Name and Credentials Clinical Instructor Signature Printed Name and Credentials
--- NOTE | 2020-06-30 09:45 | PT.OTN ---
Current Diagnoses Unilateral primary osteoarthritis, right knee (06/30/20) Trochanteric bursitis, right hip (06/30/20) Difficulty in walking, not elsewhere classified (06/30/20) Weakness (06/30/20) Physical Therapy Treatment Note PT-OP-A Visit Information Start: 05/04/20 12:29 Freq: Status: Active Protocol: Document 06/30/20 09:04 [facility] (Rec: 06/30/20 09:45 [facility] [id number]) Out-Patient Physical Therapy Visit Information Visit Information Visit Type Treatment Note Visit Note 06/24 Visit Start Time 09:00 Visit Stop Time 09:52 Total Visit Minutes 52 Visit Number 11 Number of GRAVEL WEIGHER Visits 0 PT-OP-B Current Condition Start: 05/04/20 12:29 Freq: Status: Active Protocol: Document 05/04/20 16:47 [facility] (Rec: 05/04/20 17:49 [facility] [id number]) Current Condition History of Current Condition Onset Date end of fall Current Complaints R knee & thigh History of Current Condition Pt reports she cannot straighten her R leg out for any length of time. She gets shooting pains into ant & post knee and med and lat thigh. Pt reports she has a terrible time sleeping and has to take ibuprofen & tylenol. Pt reports it depends on what she does during the day for her pain. Pt works at [employer] . She has to stand for the 4 hours at [employer] and she hurts really bad. 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 pt reports the pain is more when seh is tired . She used to walk at [employer] but hasn't d/t weather, pain & COVID. Pt reports the end of summer in Jan and Feb, she could hear a clicking in her knee but not all the time. Pt reports it just has gotten worse since then. Pt reports then her ankle started swelling to. Pt has a L uni knee in jan and saw the PA at the same clinic. PA thinks she has a tight ITB and there may be a meniscus injury to R knee. Mostly the pain feels muscular but notes the pain to ant L knee and into L adductor region. Pt does not remember any injuries . Pt reports PA diagnosed her with OA in R knee. Pt reports PA recommended possibly cortizone shot and she is opting out of that right now. She does not like to take meds typically. Pt has restless legs also and has to take tyleonol for that. Treatment Goals Patient/Caregiver Goals return to walking, dec pain PT-OP-C Subjective Start: 05/04/20 12:29 Freq: Status: Active Protocol: Document 06/30/20 09:04 [facility] (Rec: 06/30/20 09:45 [facility] [id number]) OP-PT Subjective Patient Comments Patient Comments Pt feels like when she wakes up in the middle of the night or when she gets up from the couch, she has to move it around to loosen it up. PT-OP-D Balance Start: 05/04/20 12:29 Freq: Status: Active Protocol: Document 05/04/20 16:47 [facility] (Rec: 05/04/20 17:49 [facility] [id number]) Balance Tests Single Limb Standing Single Limb- Right 2 sec pain Single Limb- Left 4 sec PT-OP-F Manual Assessment Start: 05/04/20 12:29 Freq: Status: Active Protocol: Document 05/04/20 16:47 [facility] (Rec: 05/04/20 17:49 [facility] [id number]) Manual Assessments Soft Tissue Assessment Soft Tissue Mobility Assessment tender at med >lat joint line, adductors, ITB, HS & quad, pes anserene PT-OP-G Mobility & Gait Start: 05/04/20 12:29 Freq: Status: Active Protocol: Document 05/04/20 16:47 [facility] (Rec: 05/04/20 17:49 [facility] [id number]) OP Gait Assessment Comments Gait Comments Pt has inc lat leaning B and dec push off on L side and dec stance time PT-OP-J Posture/Palpation/Skin Start: 05/04/20 12:29 Freq: Status: Active Protocol: Document 06/25/20 08:59 [facility] (Rec: 06/25/20 09:17 [facility] [id number]) Posture Evaluation Randy Postural Classification System Lumbar Protective Mechanism Left AP 2 Lumbar Protective Mechanism Right AP 1 Lumbar Protective Mechanism Left PA 2 Lumbar Protective Mechanism Right PA 1 PT-OP-K Range of Motion Start: 05/04/20 12:29 Freq: Status: Active Protocol: Document 06/25/20 08:59 [facility] (Rec: 06/25/20 09:17 [facility] [id number]) Knee Goniometric Range of Motion Knee Right Flexion Active (degrees) 130 Extension Active (degrees) 8 Comments pain w/ext PT-OP-L Special Tests Start: 05/04/20 12:29 Freq: Status: Active Protocol: Document 05/04/20 16:47 [facility] (Rec: 05/04/20 17:49 [facility] [id number]) Special Tests Knee Special Tests Amparo Test Test Results pain but no clicking Librado Test Results R hip flexor & quad tightness, L mild quad tightness Straight Leg Raise Test Results 92 L, 71 R Varus- 25 Degrees Test Results neg R Valgus- 25 Degrees Test Results neg R Compa's Test Results neg R Anterior Draw Test Results neg R Posterior Draw Test Results neg R PT-OP-M Strength Start: 05/04/20 12:29 Freq: Status: Active Protocol: Document 06/25/20 08:59 [facility] (Rec: 06/25/20 09:17 [facility] [id number]) Hip Strength Hip Manual Muscle Testing Right Flexion (L2) 3+ Fair+ Extension (S1) 3 Fair Abduction 3+ Fair+ Adduction 3- Fair- External Rotation 3+ Fair+ Internal Rotation 4 Good Left Flexion (L2) 4- Good- Extension (S1) 3 Fair Abduction 3+ Fair+ Adduction 3 Fair External Rotation 4- Good- Internal Rotation 4+ Good+ Knee Strength Knee Manual Muscle Testing Right Flexion (S2) 4 Good Extension (L3) 4 Good Left Flexion (S2) 4 Good Extension (L3) 5 Normal Ankle/Foot Strength Ankle and Foot Manual Muscle Testing Right Dorsiflexion (L4) 5 Normal Plantarflexion (S1) 5 Normal Left Dorsiflexion (L4) 5 Normal Plantarflexion (S1) 5 Normal PT-OP-Q Treatments Start: 05/04/20 12:29 Freq: Status: Active Protocol: Document 06/30/20 09:04 [facility] (Rec: 06/30/20 09:45 [facility] [id number]) Cardio Equipment Recumbent Elliptical (Biodex) Duration (Minutes) 6 Resistance 7 Seat Position 6 Gym Equipment Shuttle Balance red clips Comments fwd & Side: WBOS & NBOS fwd: staggered stance Therapeutic Exercises Sidelying Exercises hip add Side bilateral Reps/Minutes 10 hip abd Side bilateral Reps/Minutes 10 clamshell Side bilateral Reps/Minutes 10 Standing Exercises step ups Standing Exercise Name 4 in Side right Reps/Minutes 15 Comments step downs in mirror w/focus on R Knee position lunges Standing Exercise Name mini Side bilateral Equipment Used rail Reps/Minutes 10 squat Standing Exercise Name mini over chair Side bilateral Equipment Used rail Reps/Minutes 10 Manual Therapy Treatment Soft Tissue Mobilization HS Body Location R med HS & calf Mobilization Type Rolling Intensity/Depth Moderate Body Position Hooklying Joint Mobilizations patellofemoral Direction sup, inf, med Grade II PT-OP-R Modalities Start: 05/04/20 12:29 Freq: Status: Active Protocol: Document 06/25/20 08:59 [facility] (Rec: 06/25/20 09:08 [facility] [id number]) Electric Stimulation Electric Stimulation Interferential Current (IFC) Body Location R knee Duration (Minutes) 10 Combined With Heat/Cold Cold Pack PT-OP-T Assessment and Plan Start: 05/04/20 12:29 Freq: Status: Active Protocol: Document 06/30/20 09:04 [facility] (Rec: 06/30/20 09:45 [facility] [id number]) Physical Therapy Assessment Goals sleep Retirement Goal (LTG) Pt willb e able to sleep through the night without inc pain LTG Duration 08/23/20 ROM Short Term Goal (STG) Pt will have at least 5-130 deg ROM of R knee without inc pain. 06/25-progressed to 8-130-pain w/ext still STG Duration 07/23/20 Retirement Goal (LTG) Pt will be able to ascend and descend stairs without inc pain. 06/25-pain w/down but up okay LTG Duration 08/13/20 activities Short Term Goal (STG) Pt will be able to do typical walks at [facility] 3x/week with no more than 3/10 pain. 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 06/25-Pt reports she can stand for her shifts with more feeling of weakness, heaviness & fatigue LTG Duration 08/01/20 strength Short Term Goal (STG) pt will be indep with HEP STG Duration achieved progressing as needed Retirement Goal (LTG) Pt will score at least 4+/5 on all planes for MMT for B LE and 3/5 in all plans for LPM to show imrpoved stability to allow pt to do typical activiteis without pain. LTG Duration 07/05/20 LEFS Impairment 52/80 Retirement Goal (LTG) Pt will improve score to 62/80 to show improved functional ability. LTG Duration 08/23/20 Assessment Summary Assessment Pt fatigued with exercises and balance exercises. She required cuieng for form w/s/l exercises, lunges and squats. Physical Therapy Plan Frequency and Duration Frequency of Treatment 2x/Week Duration of Treatment 2 months Plan of Care Start Date 06/25/20 Plan of Care End Date 08/23/20 Next Visit Focus/Plan Next Note Type Treatment Note Next Visit Plan cont to work on strengthening & ability to move knee w/o pain
--- NOTE | 2020-07-14 11:12 | PT.OTN ---
Current Diagnoses Unilateral primary osteoarthritis, right knee (07/14/20) Trochanteric bursitis, right hip (07/14/20) Difficulty in walking, not elsewhere classified (07/14/20) Weakness (07/14/20) Physical Therapy Treatment Note PT-OP-A Visit Information Start: 05/04/20 12:29 Freq: Status: Active Protocol: Document 07/14/20 10:33 [facility] (Rec: 07/14/20 11:11 [facility] [id number]) Out-Patient Physical Therapy Visit Information Visit Information Visit Type Treatment Note Visit Note 07/22 Visit Start Time 10:29 Visit Stop Time 11:20 Total Visit Minutes 51 Visit Number 12 Number of BLACKSMITH APPRENTICE Visits 0 PT-OP-B Current Condition Start: 05/04/20 12:29 Freq: Status: Active Protocol: Document 05/04/20 16:47 [facility] (Rec: 05/04/20 17:49 [facility] [id number]) Current Condition History of Current Condition Onset Date end of fall Current Complaints R knee & thigh History of Current Condition Pt reports she cannot straighten her R leg out for any length of time. She gets shooting pains into ant & post knee and med and lat thigh. Pt reports she has a terrible time sleeping and has to take ibuprofen & tylenol. Pt reports it depends on what she does during the day for her pain. Pt works at [employer] . She has to stand for the 4 hours at [employer] and she hurts really bad. 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 pt reports the pain is more when seh is tired . She used to walk at [employer] but hasn't d/t weather, pain & COVID. Pt reports the end of summer in Jan and Feb, she could hear a clicking in her knee but not all the time. Pt reports it just has gotten worse since then. Pt reports then her ankle started swelling to. Pt has a L uni knee in jan and saw the PA at the same clinic. PA thinks she has a tight ITB and there may be a meniscus injury to R knee. Mostly the pain feels muscular but notes the pain to ant L knee and into L adductor region. Pt does not remember any injuries . Pt reports PA diagnosed her with OA in R knee. Pt reports PA recommended possibly cortizone shot and she is opting out of that right now. She does not like to take meds typically. Pt has restless legs also and has to take tyleonol for that. Treatment Goals Patient/Caregiver Goals return to walking, dec pain PT-OP-C Subjective Start: 05/04/20 12:29 Freq: Status: Active Protocol: Document 07/14/20 10:33 [facility] (Rec: 07/14/20 11:11 [facility] [id number]) OP-PT Subjective Patient Comments Patient Comments Pt reports walking 1.5 miles yesterday and had a hard night and had to take tylenol. Standing for long times still gets painfula nd tired in knee . DId well on her girls tirp PT-OP-D Balance Start: 05/04/20 12:29 Freq: Status: Active Protocol: Document 05/04/20 16:47 [facility] (Rec: 05/04/20 17:49 [facility] [id number]) Balance Tests Single Limb Standing Single Limb- Right 2 sec pain Single Limb- Left 4 sec PT-OP-F Manual Assessment Start: 05/04/20 12:29 Freq: Status: Active Protocol: Document 05/04/20 16:47 [facility] (Rec: 05/04/20 17:49 [facility] [id number]) Manual Assessments Soft Tissue Assessment Soft Tissue Mobility Assessment tender at med >lat joint line, adductors, ITB, HS & quad, pes anserene PT-OP-G Mobility & Gait Start: 05/04/20 12:29 Freq: Status: Active Protocol: Document 05/04/20 16:47 [facility] (Rec: 05/04/20 17:49 [facility] [id number]) OP Gait Assessment Comments Gait Comments Pt has inc lat leaning B and dec push off on L side and dec stance time PT-OP-J Posture/Palpation/Skin Start: 05/04/20 12:29 Freq: Status: Active Protocol: Document 06/25/20 08:59 [facility] (Rec: 06/25/20 09:17 [facility] [id number]) Posture Evaluation Randy Postural Classification System Lumbar Protective Mechanism Left AP 2 Lumbar Protective Mechanism Right AP 1 Lumbar Protective Mechanism Left PA 2 Lumbar Protective Mechanism Right PA 1 PT-OP-K Range of Motion Start: 05/04/20 12:29 Freq: Status: Active Protocol: Document 06/25/20 08:59 [facility] (Rec: 06/25/20 09:17 [facility] [id number]) Knee Goniometric Range of Motion Knee Right Flexion Active (degrees) 130 Extension Active (degrees) 8 Comments pain w/ext PT-OP-L Special Tests Start: 05/04/20 12:29 Freq: Status: Active Protocol: Document 05/04/20 16:47 [facility] (Rec: 05/04/20 17:49 [facility] [id number]) Special Tests Knee Special Tests Amparo Test Test Results pain but no clicking Librado Test Results R hip flexor & quad tightness, L mild quad tightness Straight Leg Raise Test Results 92 L, 71 R Varus- 25 Degrees Test Results neg R Valgus- 25 Degrees Test Results neg R Compa's Test Results neg R Anterior Draw Test Results neg R Posterior Draw Test Results neg R PT-OP-M Strength Start: 05/04/20 12:29 Freq: Status: Active Protocol: Document 06/25/20 08:59 [facility] (Rec: 06/25/20 09:17 [facility] [id number]) Hip Strength Hip Manual Muscle Testing Right Flexion (L2) 3+ Fair+ Extension (S1) 3 Fair Abduction 3+ Fair+ Adduction 3- Fair- External Rotation 3+ Fair+ Internal Rotation 4 Good Left Flexion (L2) 4- Good- Extension (S1) 3 Fair Abduction 3+ Fair+ Adduction 3 Fair External Rotation 4- Good- Internal Rotation 4+ Good+ Knee Strength Knee Manual Muscle Testing Right Flexion (S2) 4 Good Extension (L3) 4 Good Left Flexion (S2) 4 Good Extension (L3) 5 Normal Ankle/Foot Strength Ankle and Foot Manual Muscle Testing Right Dorsiflexion (L4) 5 Normal Plantarflexion (S1) 5 Normal Left Dorsiflexion (L4) 5 Normal Plantarflexion (S1) 5 Normal PT-OP-Q Treatments Start: 05/04/20 12:29 Freq: Status: Active Protocol: Document 07/14/20 10:33 [facility] (Rec: 07/14/20 11:11 [facility] [id number]) Cardio Equipment Recumbent Elliptical (GreenGar) Duration (Minutes) 6 Resistance 7 Seat Position 6 Gym Equipment Shuttle Balance red clips Details w/head turns Comments fwd & Side: WBOS & NBOS fwd: staggered stance Therapeutic Exercises Sidelying Exercises hip add Side bilateral Reps/Minutes 12 hip abd Side bilateral Reps/Minutes 12 clamshell Side bilateral Reps/Minutes 12 Standing Exercises lunges Standing Exercise Name mini Side bilateral Equipment Used rail Reps/Minutes 10 squat Standing Exercise Name mini over chair Side bilateral Reps/Minutes 10 Manual Therapy Treatment Soft Tissue Mobilization ant knee Body Location pes ansercene & lat gastroc & post gastroc Mobilization Type Rolling Intensity/Depth Moderate Body Position Hooklying Taping KT Body Location 3 Y for med knee glide Type of Tape Kinesio Tape Skin Inspection no issues PT-OP-R Modalities Start: 05/04/20 12:29 Freq: Status: Active Protocol: Document 07/14/20 10:33 [facility] (Rec: 07/14/20 11:11 [facility] [id number]) Hot Pack/Cold Pack Treatment Cold Pack Location R knee & quad Patient Position Hooklying Treatment Duration (minutes) 10 PT-OP-T Assessment and Plan Start: 05/04/20 12:29 Freq: Status: Active Protocol: Document 07/14/20 10:33 [facility] (Rec: 07/14/20 11:11 [facility] [id number]) Physical Therapy Assessment Goals sleep Brick Wheeler Goal (LTG) Pt willb e able to sleep through the night without inc pain LTG Duration 08/23/20 ROM Short Term Goal (STG) Pt will have at least 5-130 deg ROM of R knee without inc pain. 06/25-progressed to 8-130-pain w/ext still STG Duration 07/23/20 Brick Wheeler Goal (LTG) Pt will be able to ascend and descend stairs without inc pain. 06/25-pain w/down but up okay LTG Duration 08/13/20 activities Short Term Goal (STG) Pt will be able to do typical walks at [facility] 3x/week with no more than 3/10 pain. 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 06/25-Pt reports she can stand for her shifts with more feeling of weakness, heaviness & fatigue LTG Duration 08/01/20 strength Short Term Goal (STG) pt will be indep with HEP STG Duration achieved progressing as needed Halfway Goal (LTG) Pt will score at least 4+/5 on all planes for MMT for B LE and 3/5 in all plans for LPM to show imrpoved stability to allow pt to do typical activiteis without pain. LTG Duration 07/05/20 LEFS Impairment 52/80 Halfway Goal (LTG) Pt will improve score to 62/80 to show improved functional ability. LTG Duration 08/23/20 Assessment Summary Assessment Improved balance demonstrated on balance board today and was challenged by head turns. Improved squat and lunge form but cues still for knee position Physical Therapy Plan Frequency and Duration Frequency of Treatment 2x/Week Duration of Treatment 2 months Plan of Care Start Date 06/25/20 Plan of Care End Date 08/23/20 Next Visit Focus/Plan Next Note Type Treatment Note Next Visit Plan cont to work on strengthening & ability to move knee w/o pain
--- NOTE | 2020-07-20 12:05 | PT.OTN ---
Current Diagnoses Unilateral primary osteoarthritis, right knee (07/20/20) Trochanteric bursitis, right hip (07/20/20) Difficulty in walking, not elsewhere classified (07/20/20) Weakness (07/20/20) Physical Therapy Treatment Note PT-OP-A Visit Information Start: 05/04/20 12:29 Freq: Status: Active Protocol: Document 07/20/20 11:26 [facility] (Rec: 07/20/20 12:05 [facility] [id number]) Out-Patient Physical Therapy Visit Information Visit Information Visit Type Treatment Note Visit Note 08/22 Visit Start Time 11:19 Visit Stop Time 12:00 Total Visit Minutes 41 Number of MIXER BLENDER Visits 0 PT-OP-B Current Condition Start: 05/04/20 12:29 Freq: Status: Active Protocol: Document 05/04/20 16:47 [facility] (Rec: 05/04/20 17:49 [facility] [id number]) Current Condition History of Current Condition Onset Date end of fall Current Complaints R knee & thigh History of Current Condition Pt reports she cannot straighten her R leg out for any length of time. She gets shooting pains into ant & post knee and med and lat thigh. Pt reports she has a terrible time sleeping and has to take ibuprofen & tylenol. Pt reports it depends on what she does during the day for her pain. Pt works at [employer] . She has to stand for the 4 hours at [employer] and she hurts really bad. 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 pt reports the pain is more when seh is tired . She used to walk at [employer] but hasn't d/t weather, pain & COVID. Pt reports the end of summer in Jan and Feb, she could hear a clicking in her knee but not all the time. Pt reports it just has gotten worse since then. Pt reports then her ankle started swelling to. Pt has a L uni knee in jan and saw the PA at the same clinic. PA thinks she has a tight ITB and there may be a meniscus injury to R knee. Mostly the pain feels muscular but notes the pain to ant L knee and into L adductor region. Pt does not remember any injuries . Pt reports PA diagnosed her with OA in R knee. Pt reports PA recommended possibly cortizone shot and she is opting out of that right now. She does not like to take meds typically. Pt has restless legs also and has to take tyleonol for that. Treatment Goals Patient/Caregiver Goals return to walking, dec pain PT-OP-C Subjective Start: 05/04/20 12:29 Freq: Status: Active Protocol: Document 07/20/20 11:26 [facility] (Rec: 07/20/20 12:05 [facility] [id number]) OP-PT Subjective Patient Comments Patient Comments Pt reports knee has been feeling pretty good. Monday she was on her feet until 4 pm and she was tired and both lgs feel tired. nights better but still not great Patient Reported Progress Improving PT-OP-D Balance Start: 05/04/20 12:29 Freq: Status: Active Protocol: Document 05/04/20 16:47 [facility] (Rec: 05/04/20 17:49 [facility] [id number]) Balance Tests Single Limb Standing Single Limb- Right 2 sec pain Single Limb- Left 4 sec PT-OP-F Manual Assessment Start: 05/04/20 12:29 Freq: Status: Active Protocol: Document 05/04/20 16:47 [facility] (Rec: 05/04/20 17:49 [facility] [id number]) Manual Assessments Soft Tissue Assessment Soft Tissue Mobility Assessment tender at med >lat joint line, adductors, ITB, HS & quad, pes anserene PT-OP-G Mobility & Gait Start: 05/04/20 12:29 Freq: Status: Active Protocol: Document 05/04/20 16:47 [facility] (Rec: 05/04/20 17:49 [facility] [id number]) OP Gait Assessment Comments Gait Comments Pt has inc lat leaning B and dec push off on L side and dec stance time PT-OP-J Posture/Palpation/Skin Start: 05/04/20 12:29 Freq: Status: Active Protocol: Document 06/25/20 08:59 [facility] (Rec: 06/25/20 09:17 [facility] [id number]) Posture Evaluation Randy Postural Classification System Lumbar Protective Mechanism Left AP 2 Lumbar Protective Mechanism Right AP 1 Lumbar Protective Mechanism Left PA 2 Lumbar Protective Mechanism Right PA 1 PT-OP-K Range of Motion Start: 05/04/20 12:29 Freq: Status: Active Protocol: Document 06/25/20 08:59 [facility] (Rec: 06/25/20 09:17 [facility] [id number]) Knee Goniometric Range of Motion Knee Right Flexion Active (degrees) 130 Extension Active (degrees) 8 Comments pain w/ext PT-OP-L Special Tests Start: 05/04/20 12:29 Freq: Status: Active Protocol: Document 05/04/20 16:47 [facility] (Rec: 05/04/20 17:49 [facility] [id number]) Special Tests Knee Special Tests Amparo Test Test Results pain but no clicking Librado Test Results R hip flexor & quad tightness, L mild quad tightness Straight Leg Raise Test Results 92 L, 71 R Varus- 25 Degrees Test Results neg R Valgus- 25 Degrees Test Results neg R Compa's Test Results neg R Anterior Draw Test Results neg R Posterior Draw Test Results neg R PT-OP-M Strength Start: 05/04/20 12:29 Freq: Status: Active Protocol: Document 06/25/20 08:59 [facility] (Rec: 06/25/20 09:17 [facility] [id number]) Hip Strength Hip Manual Muscle Testing Right Flexion (L2) 3+ Fair+ Extension (S1) 3 Fair Abduction 3+ Fair+ Adduction 3- Fair- External Rotation 3+ Fair+ Internal Rotation 4 Good Left Flexion (L2) 4- Good- Extension (S1) 3 Fair Abduction 3+ Fair+ Adduction 3 Fair External Rotation 4- Good- Internal Rotation 4+ Good+ Knee Strength Knee Manual Muscle Testing Right Flexion (S2) 4 Good Extension (L3) 4 Good Left Flexion (S2) 4 Good Extension (L3) 5 Normal Ankle/Foot Strength Ankle and Foot Manual Muscle Testing Right Dorsiflexion (L4) 5 Normal Plantarflexion (S1) 5 Normal Left Dorsiflexion (L4) 5 Normal Plantarflexion (S1) 5 Normal PT-OP-Q Treatments Start: 05/04/20 12:29 Freq: Status: Active Protocol: Document 07/20/20 11:26 [facility] (Rec: 07/20/20 12:05 [facility] [id number]) Cardio Equipment Recumbent Elliptical ([employer]ek) Duration (Minutes) 6 Resistance 7 Seat Position 6 Gym Equipment Shuttle Balance red clips Details w/head turns Comments fwd & Side: WBOS & NBOS fwd: staggered stance Therapeutic Exercises Standing Exercises lunges Standing Exercise Name mini Side bilateral Equipment Used rail Reps/Minutes 10 Comments cues for longer step squat Standing Exercise Name mini over chair Side bilateral Reps/Minutes 10 side step Side bilateral Equipment Used L1 Reps/Minutes 20ft Manual Therapy Treatment Soft Tissue Mobilization ant knee Body Location ant knee & circumfrential sup knee Mobilization Type Myofascial Release Intensity/Depth Moderate Body Position Hooklying Joint Mobilizations tibiofemoral Joint R Direction lat gliding of femur PT-OP-R Modalities Start: 05/04/20 12:29 Freq: Status: Active Protocol: Document 07/14/20 10:33 [facility] (Rec: 07/14/20 11:11 [facility] [id number]) Hot Pack/Cold Pack Treatment Cold Pack Location R knee & quad Patient Position Hooklying Treatment Duration (minutes) 10 PT-OP-T Assessment and Plan Start: 05/04/20 12:29 Freq: Status: Active Protocol: Document 07/20/20 11:26 [facility] (Rec: 07/20/20 12:05 [facility] [id number]) Physical Therapy Assessment Goals sleep Composite Engineer Goal (LTG) Pt willb e able to sleep through the night without inc pain LTG Duration 08/23/20 ROM Short Term Goal (STG) Pt will have at least 5-130 deg ROM of R knee without inc pain. 06/25-progressed to 8-130-pain w/ext still STG Duration 07/23/20 Intermediate Goal (LTG) Pt will be able to ascend and descend stairs without inc pain. 06/25-pain w/down but up okay LTG Duration 08/13/20 activities Short Term Goal (STG) Pt will be able to do typical walks at [facility] 3x/week with no more than 3/10 pain. 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 06/25-Pt reports she can stand for her shifts with more feeling of weakness, heaviness & fatigue LTG Duration 08/01/20 strength Short Term Goal (STG) pt will be indep with HEP STG Duration achieved progressing as needed Intermediate Goal (LTG) Pt will score at least 4+/5 on all planes for MMT for B LE and 3/5 in all plans for LPM to show imrpoved stability to allow pt to do typical activiteis without pain. LTG Duration 07/05/20 LEFS Impairment 52/80 Composite Engineer Goal (LTG) Pt will improve score to 62/80 to show improved functional ability. LTG Duration 08/23/20 Assessment Summary Assessment Pt did well with exercises with imrpoved performance. Still fatigued w/doing side steps and encouraged to do at home. Pt improving with balance overall and had dec kene pain w/flex in s/l after manual. Physical Therapy Plan Frequency and Duration Frequency of Treatment 2x/Week Duration of Treatment 2 months Plan of Care Start Date 06/25/20 Plan of Care End Date 08/23/20 Next Visit Focus/Plan Next Note Type Treatment Note Next Visit Plan cont to work on strengthening & ability to move knee w/o pain
--- NOTE | 2020-07-23 10:36 | PT.OTN ---
Current Diagnoses Unilateral primary osteoarthritis, right knee (07/23/20) Trochanteric bursitis, right hip (07/23/20) Difficulty in walking, not elsewhere classified (07/23/20) Weakness (07/23/20) Physical Therapy Treatment Note PT-OP-A Visit Information Start: 05/04/20 12:29 Freq: Status: Active Protocol: Document 07/23/20 09:47 [facility] (Rec: 07/23/20 10:36 [facility] [id number]) Out-Patient Physical Therapy Visit Information Visit Information Visit Type Treatment Note Visit Note 09/21 Visit Start Time 09:45 Visit Stop Time 10:38 Total Visit Minutes 53 Visit Number 14 Number of EXTRACORPOREAL TECHNICIAN Visits 0 PT-OP-B Current Condition Start: 05/04/20 12:29 Freq: Status: Active Protocol: Document 05/04/20 16:47 [facility] (Rec: 05/04/20 17:49 [facility] [id number]) Current Condition History of Current Condition Onset Date end of fall Current Complaints R knee & thigh History of Current Condition Pt reports she cannot straighten her R leg out for any length of time. She gets shooting pains into ant & post knee and med and lat thigh. Pt reports she has a terrible time sleeping and has to take ibuprofen & tylenol. Pt reports it depends on what she does during the day for her pain. Pt works at [employer] . She has to stand for the 4 hours at [employer] and she hurts really bad. 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 pt reports the pain is more when seh is tired . She used to walk at [employer] but hasn't d/t weather, pain & COVID. Pt reports the end of summer in Jan and Feb, she could hear a clicking in her knee but not all the time. Pt reports it just has gotten worse since then. Pt reports then her ankle started swelling to. Pt has a L uni knee in jan and saw the PA at the same clinic. PA thinks she has a tight ITB and there may be a meniscus injury to R knee. Mostly the pain feels muscular but notes the pain to ant L knee and into L adductor region. Pt does not remember any injuries . Pt reports PA diagnosed her with OA in R knee. Pt reports PA recommended possibly cortizone shot and she is opting out of that right now. She does not like to take meds typically. Pt has restless legs also and has to take tyleonol for that. Treatment Goals Patient/Caregiver Goals return to walking, dec pain PT-OP-C Subjective Start: 05/04/20 12:29 Freq: Status: Active Protocol: Document 07/23/20 09:47 [facility] (Rec: 07/23/20 10:36 [facility] [id number]) OP-PT Subjective Patient Comments Patient Comments Pt reports yesterday and last night was the first itme seh went through the night without taking any tylenol. walked 1. 5 miles PT-OP-D Balance Start: 05/04/20 12:29 Freq: Status: Active Protocol: Document 05/04/20 16:47 [facility] (Rec: 05/04/20 17:49 [facility] [id number]) Balance Tests Single Limb Standing Single Limb- Right 2 sec pain Single Limb- Left 4 sec PT-OP-F Manual Assessment Start: 05/04/20 12:29 Freq: Status: Active Protocol: Document 05/04/20 16:47 [facility] (Rec: 05/04/20 17:49 [facility] [id number]) Manual Assessments Soft Tissue Assessment Soft Tissue Mobility Assessment tender at med >lat joint line, adductors, ITB, HS & quad, pes anserene PT-OP-G Mobility & Gait Start: 05/04/20 12:29 Freq: Status: Active Protocol: Document 05/04/20 16:47 [facility] (Rec: 05/04/20 17:49 [facility] [id number]) OP Gait Assessment Comments Gait Comments Pt has inc lat leaning B and dec push off on L side and dec stance time PT-OP-J Posture/Palpation/Skin Start: 05/04/20 12:29 Freq: Status: Active Protocol: Document 06/25/20 08:59 [facility] (Rec: 06/25/20 09:17 [facility] [id number]) Posture Evaluation Randy Postural Classification System Lumbar Protective Mechanism Left AP 2 Lumbar Protective Mechanism Right AP 1 Lumbar Protective Mechanism Left PA 2 Lumbar Protective Mechanism Right PA 1 PT-OP-K Range of Motion Start: 05/04/20 12:29 Freq: Status: Active Protocol: Document 06/25/20 08:59 [facility] (Rec: 06/25/20 09:17 [facility] [id number]) Knee Goniometric Range of Motion Knee Right Flexion Active (degrees) 130 Extension Active (degrees) 8 Comments pain w/ext PT-OP-L Special Tests Start: 05/04/20 12:29 Freq: Status: Active Protocol: Document 05/04/20 16:47 [facility] (Rec: 05/04/20 17:49 [facility] [id number]) Special Tests Knee Special Tests Amparo Test Test Results pain but no clicking Librado Test Results R hip flexor & quad tightness, L mild quad tightness Straight Leg Raise Test Results 92 L, 71 R Varus- 25 Degrees Test Results neg R Valgus- 25 Degrees Test Results neg R Compa's Test Results neg R Anterior Draw Test Results neg R Posterior Draw Test Results neg R PT-OP-M Strength Start: 05/04/20 12:29 Freq: Status: Active Protocol: Document 06/25/20 08:59 [facility] (Rec: 06/25/20 09:17 [facility] [id number]) Hip Strength Hip Manual Muscle Testing Right Flexion (L2) 3+ Fair+ Extension (S1) 3 Fair Abduction 3+ Fair+ Adduction 3- Fair- External Rotation 3+ Fair+ Internal Rotation 4 Good Left Flexion (L2) 4- Good- Extension (S1) 3 Fair Abduction 3+ Fair+ Adduction 3 Fair External Rotation 4- Good- Internal Rotation 4+ Good+ Knee Strength Knee Manual Muscle Testing Right Flexion (S2) 4 Good Extension (L3) 4 Good Left Flexion (S2) 4 Good Extension (L3) 5 Normal Ankle/Foot Strength Ankle and Foot Manual Muscle Testing Right Dorsiflexion (L4) 5 Normal Plantarflexion (S1) 5 Normal Left Dorsiflexion (L4) 5 Normal Plantarflexion (S1) 5 Normal PT-OP-Q Treatments Start: 05/04/20 12:29 Freq: Status: Active Protocol: Document 07/23/20 09:47 [facility] (Rec: 07/23/20 10:36 [facility] [id number]) Cardio Equipment Recumbent Elliptical (Biodex) Duration (Minutes) 6 Resistance 7 Seat Position 6 Gym Equipment Shuttle Balance red clips Details w/head turns Comments fwd & Side: WBOS & NBOS fwd: staggered stance Sport Cord back Exercise Details B walk Cord/Resistance green Reps/Duration 10 sidestep Exercise Details B Cord/Resistance green Reps/Duration 10 fwd Exercise Details focus on good wt shift Cord/Resistance green Reps/Duration 10x Therapeutic Exercises Standing Exercises lunges Standing Exercise Name mini Side bilateral Equipment Used rail Reps/Minutes 10 Comments cues for longer step squat Standing Exercise Name mini over chair Side bilateral Reps/Minutes 10 PT-OP-R Modalities Start: 05/04/20 12:29 Freq: Status: Active Protocol: Document 07/23/20 09:47 [facility] (Rec: 07/23/20 10:36 [facility] [id number]) Hot Pack/Cold Pack Treatment Cold Pack Location R knee & quad Patient Position Hooklying Treatment Duration (minutes) 10 PT-OP-T Assessment and Plan Start: 05/04/20 12:29 Freq: Status: Active Protocol: Document 07/23/20 09:47 [facility] (Rec: 07/23/20 10:36 [facility] [id number]) Physical Therapy Assessment Goals sleep Phd Intern Goal (LTG) Pt willb e able to sleep through the night without inc pain LTG Duration 08/23/20 ROM Short Term Goal (STG) Pt will have at least 5-130 deg ROM of R knee without inc pain. 06/25-progressed to 8-130-pain w/ext still STG Duration 07/23/20 Phd Intern Goal (LTG) Pt will be able to ascend and descend stairs without inc pain. 06/25-pain w/down but up okay LTG Duration 08/13/20 activities Short Term Goal (STG) Pt will be able to do typical walks at [facility] 3x/week with no more than 3/10 pain. 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 06/25-Pt reports she can stand for her shifts with more feeling of weakness, heaviness & fatigue LTG Duration 08/01/20 strength Short Term Goal (STG) pt will be indep with HEP STG Duration achieved progressing as needed Phd Intern Goal (LTG) Pt will score at least 4+/5 on all planes for MMT for B LE and 3/5 in all plans for LPM to show imrpoved stability to allow pt to do typical activiteis without pain. LTG Duration 07/05/20 LEFS Impairment 52/80 Phd Intern Goal (LTG) Pt will improve score to 62/80 to show improved functional ability. LTG Duration 08/23/20 Assessment Summary Assessment Min cueing w/lunges and squats for knee position still. challenged by resisted walking today especially backwards Physical Therapy Plan Frequency and Duration Frequency of Treatment 2x/Week Duration of Treatment 2 months Plan of Care Start Date 06/25/20 Plan of Care End Date 08/23/20 Next Visit Focus/Plan Next Note Type Treatment Note Next Visit Plan cont to work on strengthening & ability to move knee w/o pain
--- NOTE | 2020-07-27 10:36 | PT.OTN ---
Current Diagnoses Unilateral primary osteoarthritis, right knee (07/27/20) Trochanteric bursitis, right hip (07/27/20) Difficulty in walking, not elsewhere classified (07/27/20) Weakness (07/27/20) Physical Therapy Treatment Note PT-OP-A Visit Information Start: 05/04/20 12:29 Freq: Status: Active Protocol: Document 07/27/20 09:51 [facility] (Rec: 07/27/20 10:35 [facility] [id number]) Out-Patient Physical Therapy Visit Information Visit Information Visit Type Treatment Note Visit Note 10/22 Visit Start Time 09:49 Visit Stop Time 10:39 Total Visit Minutes 50 Visit Number 15 Number of [employer]PUT[employer] CLERK Visits 0 PT-OP-B Current Condition Start: 05/04/20 12:29 Freq: Status: Active Protocol: Document 05/04/20 16:47 [facility] (Rec: 05/04/20 17:49 [facility] [id number]) Current Condition History of Current Condition Onset Date end of fall Current Complaints R knee & thigh History of Current Condition Pt reports she cannot straighten her R leg out for any length of time. She gets shooting pains into ant & post knee and med and lat thigh. Pt reports she has a terrible time sleeping and has to take ibuprofen & tylenol. Pt reports it depends on what she does during the day for her pain. Pt works at [employer] . She has to stand for the 4 hours at [employer] and she hurts really bad. 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 pt reports the pain is more when seh is tired . She used to walk at [employer] but hasn't d/t weather, pain & COVID. Pt reports the end of summer in Jan and Feb, she could hear a clicking in her knee but not all the time. Pt reports it just has gotten worse since then. Pt reports then her ankle started swelling to. Pt has a L uni knee in jan and saw the PA at the same clinic. PA thinks she has a tight ITB and there may be a meniscus injury to R knee. Mostly the pain feels muscular but notes the pain to ant L knee and into L adductor region. Pt does not remember any injuries . Pt reports PA diagnosed her with OA in R knee. Pt reports PA recommended possibly cortizone shot and she is opting out of that right now. She does not like to take meds typically. Pt has restless legs also and has to take tyleonol for that. Treatment Goals Patient/Caregiver Goals return to walking, dec pain PT-OP-C Subjective Start: 05/04/20 12:29 Freq: Status: Active Protocol: Document 07/27/20 09:51 [facility] (Rec: 07/27/20 10:35 [facility] [id number]) OP-PT Subjective Patient Comments Patient Comments Pt walked almost 2 miles at [facility] this weekend. She may have been able to do a little more but was tired by then. Pt reports she had one night this weekend that she didn't have to take tylenol. SOmetimes she only takes it d/ t restless legs. PT-OP-D Balance Start: 05/04/20 12:29 Freq: Status: Active Protocol: Document 05/04/20 16:47 [facility] (Rec: 05/04/20 17:49 [facility] [id number]) Balance Tests Single Limb Standing Single Limb- Right 2 sec pain Single Limb- Left 4 sec PT-OP-F Manual Assessment Start: 05/04/20 12:29 Freq: Status: Active Protocol: Document 05/04/20 16:47 [facility] (Rec: 05/04/20 17:49 [facility] [id number]) Manual Assessments Soft Tissue Assessment Soft Tissue Mobility Assessment tender at med >lat joint line, adductors, ITB, HS & quad, pes anserene PT-OP-G Mobility & Gait Start: 05/04/20 12:29 Freq: Status: Active Protocol: Document 05/04/20 16:47 [facility] (Rec: 05/04/20 17:49 [facility] [id number]) OP Gait Assessment Comments Gait Comments Pt has inc lat leaning B and dec push off on L side and dec stance time PT-OP-J Posture/Palpation/Skin Start: 05/04/20 12:29 Freq: Status: Active Protocol: Document 06/25/20 08:59 [facility] (Rec: 06/25/20 09:17 [facility] [id number]) Posture Evaluation Randy Postural Classification System Lumbar Protective Mechanism Left AP 2 Lumbar Protective Mechanism Right AP 1 Lumbar Protective Mechanism Left PA 2 Lumbar Protective Mechanism Right PA 1 PT-OP-K Range of Motion Start: 05/04/20 12:29 Freq: Status: Active Protocol: Document 06/25/20 08:59 [facility] (Rec: 06/25/20 09:17 [facility] [id number]) Knee Goniometric Range of Motion Knee Right Flexion Active (degrees) 130 Extension Active (degrees) 8 Comments pain w/ext PT-OP-L Special Tests Start: 05/04/20 12:29 Freq: Status: Active Protocol: Document 05/04/20 16:47 [facility] (Rec: 05/04/20 17:49 [facility] [id number]) Special Tests Knee Special Tests Amparo Test Test Results pain but no clicking Librado Test Results R hip flexor & quad tightness, L mild quad tightness Straight Leg Raise Test Results 92 L, 71 R Varus- 25 Degrees Test Results neg R Valgus- 25 Degrees Test Results neg R Compa's Test Results neg R Anterior Draw Test Results neg R Posterior Draw Test Results neg R PT-OP-M Strength Start: 05/04/20 12:29 Freq: Status: Active Protocol: Document 06/25/20 08:59 [facility] (Rec: 06/25/20 09:17 [facility] [id number]) Hip Strength Hip Manual Muscle Testing Right Flexion (L2) 3+ Fair+ Extension (S1) 3 Fair Abduction 3+ Fair+ Adduction 3- Fair- External Rotation 3+ Fair+ Internal Rotation 4 Good Left Flexion (L2) 4- Good- Extension (S1) 3 Fair Abduction 3+ Fair+ Adduction 3 Fair External Rotation 4- Good- Internal Rotation 4+ Good+ Knee Strength Knee Manual Muscle Testing Right Flexion (S2) 4 Good Extension (L3) 4 Good Left Flexion (S2) 4 Good Extension (L3) 5 Normal Ankle/Foot Strength Ankle and Foot Manual Muscle Testing Right Dorsiflexion (L4) 5 Normal Plantarflexion (S1) 5 Normal Left Dorsiflexion (L4) 5 Normal Plantarflexion (S1) 5 Normal PT-OP-Q Treatments Start: 05/04/20 12:29 Freq: Status: Active Protocol: Document 07/27/20 09:51 [facility] (Rec: 07/27/20 10:35 [facility] [id number]) Cardio Equipment Recumbent Elliptical (Biodex) Duration (Minutes) 6 Resistance 5-7 Seat Position 6 Gym Equipment Shuttle Balance red clips Details w/head turns Comments fwd & Side: WBOS & NBOS fwd: staggered stance Sport Cord back Exercise Details B walk Cord/Resistance green Reps/Duration 10 sidestep Exercise Details B Cord/Resistance green Reps/Duration 5 fwd Exercise Details focus on good wt shift Cord/Resistance green Reps/Duration 10x Therapeutic Exercises Standing Exercises lunges Standing Exercise Name mini Side bilateral Equipment Used rail Reps/Minutes 12 Comments cues for longer step squat Standing Exercise Name mini over chair Side bilateral Reps/Minutes 10 Manual Therapy Treatment Soft Tissue Mobilization HS Body Location R med HS & calf Mobilization Type Rolling Intensity/Depth Moderate Body Position Hooklying Joint Mobilizations tibfib Joint proximal Direction AP Grade II tibiofemoral Joint R Direction AP tibia patellofemoral Direction sup, inf, med Grade II Neuro Re-Education Treatment Balance Activities dynadisc Details balance bosu Comments 1. balance 2. step ups Bx6 PT-OP-R Modalities Start: 05/04/20 12:29 Freq: Status: Active Protocol: Document 07/27/20 09:51 [facility] (Rec: 07/27/20 10:35 [facility] [id number]) Hot Pack/Cold Pack Treatment Cold Pack Location R knee & quad Patient Position Hooklying Treatment Duration (minutes) 10 PT-OP-T Assessment and Plan Start: 05/04/20 12:29 Freq: Status: Active Protocol: Document 07/27/20 09:51 [facility] (Rec: 07/27/20 10:35 [facility] [id number]) Physical Therapy Assessment Goals sleep Puff Ironer Goal (LTG) Pt willb e able to sleep through the night without inc pain LTG Duration 08/23/20 ROM Short Term Goal (STG) Pt will have at least 5-130 deg ROM of R knee without inc pain. 06/25-progressed to 8-130-pain w/ext still STG Duration 07/23/20 Care Home Goal (LTG) Pt will be able to ascend and descend stairs without inc pain. 06/25-pain w/down but up okay LTG Duration 08/13/20 activities Short Term Goal (STG) Pt will be able to do typical walks at [facility] 3x/week with no more than 3/10 pain. 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 06/25-Pt reports she can stand for her shifts with more feeling of weakness, heaviness & fatigue LTG Duration 08/01/20 strength Short Term Goal (STG) pt will be indep with HEP STG Duration achieved progressing as needed Puff Ironer Goal (LTG) Pt will score at least 4+/5 on all planes for MMT for B LE and 3/5 in all plans for LPM to show imrpoved stability to allow pt to do typical activiteis without pain. LTG Duration 07/05/20 LEFS Impairment 52/80 Puff Ironer Goal (LTG) Pt will improve score to 62/80 to show improved functional ability. LTG Duration 08/23/20 Assessment Summary Assessment Pt cont to improve w/form w/ exercises. Cueing reqi\uired some w/lunge and squat. Improving balance w/unstable surfaces & shown some surfaces she can get at home to use by solid surface. Physical Therapy Plan Frequency and Duration Frequency of Treatment 2x/Week Duration of Treatment 2 months Plan of Care Start Date 06/25/20 Plan of Care End Date 08/23/20 Next Visit Focus/Plan Next Note Type Treatment Note Next Visit Plan cont to work on strengthening & ability to move knee w/o pain
--- NOTE | 2020-07-30 11:15 | PT.OTN ---
Current Diagnoses Unilateral primary osteoarthritis, right knee (07/30/20) Trochanteric bursitis, right hip (07/30/20) Difficulty in walking, not elsewhere classified (07/30/20) Weakness (07/30/20) Physical Therapy Treatment Note PT-OP-A Visit Information Start: 05/04/20 12:29 Freq: Status: Active Protocol: Document 07/30/20 09:54 [facility] (Rec: 07/30/20 11:05 [facility] [id number]) Out-Patient Physical Therapy Visit Information Visit Information Visit Type Treatment Note Visit Note 11/21 Visit Start Time 09:48 Visit Stop Time 10:39 Total Visit Minutes 51 Visit Number 16 Number of ACCOUNT DEVELOPER Visits 0 PT-OP-B Current Condition Start: 05/04/20 12:29 Freq: Status: Active Protocol: Document 05/04/20 16:47 [facility] (Rec: 05/04/20 17:49 [facility] [id number]) Current Condition History of Current Condition Onset Date end of fall Current Complaints R knee & thigh History of Current Condition Pt reports she cannot straighten her R leg out for any length of time. She gets shooting pains into ant & post knee and med and lat thigh. Pt reports she has a terrible time sleeping and has to take ibuprofen & tylenol. Pt reports it depends on what she does during the day for her pain. Pt works at [employer] . She has to stand for the 4 hours at [employer] and she hurts really bad. 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 pt reports the pain is more when seh is tired . She used to walk at [employer] but hasn't d/t weather, pain & COVID. Pt reports the end of summer in Jan and Feb, she could hear a clicking in her knee but not all the time. Pt reports it just has gotten worse since then. Pt reports then her ankle started swelling to. Pt has a L uni knee in jan and saw the PA at the same clinic. PA thinks she has a tight ITB and there may be a meniscus injury to R knee. Mostly the pain feels muscular but notes the pain to ant L knee and into L adductor region. Pt does not remember any injuries . Pt reports PA diagnosed her with OA in R knee. Pt reports PA recommended possibly cortizone shot and she is opting out of that right now. She does not like to take meds typically. Pt has restless legs also and has to take tyleonol for that. Treatment Goals Patient/Caregiver Goals return to walking, dec pain PT-OP-C Subjective Start: 05/04/20 12:29 Freq: Status: Active Protocol: Document 07/30/20 09:54 [facility] (Rec: 07/30/20 11:05 [facility] [id number]) OP-PT Subjective Patient Comments Patient Comments Pt reports good and bad days. Notes last 2 nights were painful. PT-OP-D Balance Start: 05/04/20 12:29 Freq: Status: Active Protocol: Document 05/04/20 16:47 [facility] (Rec: 05/04/20 17:49 [facility] [id number]) Balance Tests Single Limb Standing Single Limb- Right 2 sec pain Single Limb- Left 4 sec PT-OP-F Manual Assessment Start: 05/04/20 12:29 Freq: Status: Active Protocol: Document 05/04/20 16:47 [facility] (Rec: 05/04/20 17:49 [facility] [id number]) Manual Assessments Soft Tissue Assessment Soft Tissue Mobility Assessment tender at med >lat joint line, adductors, ITB, HS & quad, pes anserene PT-OP-G Mobility & Gait Start: 05/04/20 12:29 Freq: Status: Active Protocol: Document 05/04/20 16:47 [facility] (Rec: 05/04/20 17:49 [facility] [id number]) OP Gait Assessment Comments Gait Comments Pt has inc lat leaning B and dec push off on L side and dec stance time PT-OP-J Posture/Palpation/Skin Start: 05/04/20 12:29 Freq: Status: Active Protocol: Document 06/25/20 08:59 [facility] (Rec: 06/25/20 09:17 [facility] [id number]) Posture Evaluation Randy Postural Classification System Lumbar Protective Mechanism Left AP 2 Lumbar Protective Mechanism Right AP 1 Lumbar Protective Mechanism Left PA 2 Lumbar Protective Mechanism Right PA 1 PT-OP-K Range of Motion Start: 05/04/20 12:29 Freq: Status: Active Protocol: Document 06/25/20 08:59 [facility] (Rec: 06/25/20 09:17 [facility] [id number]) Knee Goniometric Range of Motion Knee Right Flexion Active (degrees) 130 Extension Active (degrees) 8 Comments pain w/ext PT-OP-L Special Tests Start: 05/04/20 12:29 Freq: Status: Active Protocol: Document 05/04/20 16:47 [facility] (Rec: 05/04/20 17:49 [facility] [id number]) Special Tests Knee Special Tests Amparo Test Test Results pain but no clicking Librado Test Results R hip flexor & quad tightness, L mild quad tightness Straight Leg Raise Test Results 92 L, 71 R Varus- 25 Degrees Test Results neg R Valgus- 25 Degrees Test Results neg R Compa's Test Results neg R Anterior Draw Test Results neg R Posterior Draw Test Results neg R PT-OP-M Strength Start: 05/04/20 12:29 Freq: Status: Active Protocol: Document 06/25/20 08:59 [facility] (Rec: 06/25/20 09:17 [facility] [id number]) Hip Strength Hip Manual Muscle Testing Right Flexion (L2) 3+ Fair+ Extension (S1) 3 Fair Abduction 3+ Fair+ Adduction 3- Fair- External Rotation 3+ Fair+ Internal Rotation 4 Good Left Flexion (L2) 4- Good- Extension (S1) 3 Fair Abduction 3+ Fair+ Adduction 3 Fair External Rotation 4- Good- Internal Rotation 4+ Good+ Knee Strength Knee Manual Muscle Testing Right Flexion (S2) 4 Good Extension (L3) 4 Good Left Flexion (S2) 4 Good Extension (L3) 5 Normal Ankle/Foot Strength Ankle and Foot Manual Muscle Testing Right Dorsiflexion (L4) 5 Normal Plantarflexion (S1) 5 Normal Left Dorsiflexion (L4) 5 Normal Plantarflexion (S1) 5 Normal PT-OP-Q Treatments Start: 05/04/20 12:29 Freq: Status: Active Protocol: Document 07/30/20 09:54 [facility] (Rec: 07/30/20 11:05 [facility] [id number]) Cardio Equipment Recumbent Elliptical ([employer]) Duration (Minutes) 7 Resistance 5 Seat Position 6 Gym Equipment Shuttle Balance red clips Details w/head turns Comments fwd & Side: WBOS & NBOS fwd: staggered stance Sport Cord back Exercise Details B walk Cord/Resistance green Reps/Duration 10 fwd Exercise Details focus on good wt shift Cord/Resistance green Reps/Duration 10x Therapeutic Exercises Standing Exercises lunges Standing Exercise Name mini Side bilateral Equipment Used rail Reps/Minutes 10 Comments cues for longer step Manual Therapy Treatment Soft Tissue Mobilization ant knee Body Location ant/med knee Mobilization Type Myofascial Release,Strumming glutes Body Location R HS & Calf Mobilization Type Rolling,Sustained Pressure Intensity/Depth Superficial Body Position Sidelying Neuro Re-Education Treatment Balance Activities dynadisc Details balance PT-OP-R Modalities Start: 05/04/20 12:29 Freq: Status: Active Protocol: Document 07/30/20 09:54 [facility] (Rec: 07/30/20 11:05 [facility] [id number]) Hot Pack/Cold Pack Treatment Cold Pack Location R knee & quad Patient Position Hooklying Treatment Duration (minutes) 10 PT-OP-T Assessment and Plan Start: 05/04/20 12:29 Freq: Status: Active Protocol: Document 07/30/20 09:54 [facility] (Rec: 07/30/20 11:05 [facility] [id number]) Physical Therapy Assessment Goals sleep Mcfp Goal (LTG) Pt willb e able to sleep through the night without inc pain LTG Duration 08/23/20 ROM Short Term Goal (STG) Pt will have at least 5-130 deg ROM of R knee without inc pain. 06/25-progressed to 8-130-pain w/ext still STG Duration 07/23/20 Invoicing Specialist Goal (LTG) Pt will be able to ascend and descend stairs without inc pain. 06/25-pain w/down but up okay LTG Duration 08/13/20 activities Short Term Goal (STG) Pt will be able to do typical walks at [employer] 3x/week with no more than 3/10 pain. 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 06/25-Pt reports she can stand for her shifts with more feeling of weakness, heaviness & fatigue LTG Duration 08/01/20 strength Short Term Goal (STG) pt will be indep with HEP STG Duration achieved progressing as needed Invoicing Specialist Goal (LTG) Pt will score at least 4+/5 on all planes for MMT for B LE and 3/5 in all plans for LPM to show imrpoved stability to allow pt to do typical activiteis without pain. LTG Duration 07/05/20 LEFS Impairment 52/80 Mcfp Goal (LTG) Pt will improve score to 62/80 to show improved functional ability. LTG Duration 08/23/20 Assessment Summary Assessment changing pt from 2x to 1x week to work more on hep at home. She is improving with balance and exercise form and has purchased some balance equipment for home and educated to do by counter or sturdy surface. Physical Therapy Plan Frequency and Duration Frequency of Treatment 2x/Week Duration of Treatment 2 months Plan of Care Start Date 06/25/20 Plan of Care End Date 08/23/20 Next Visit Focus/Plan Next Note Type Treatment Note Next Visit Plan cont to work on strengthening & ability to move knee w/o pain
--- NOTE | 2020-08-03 10:31 | PT.OTN ---
Current Diagnoses Unilateral primary osteoarthritis, right knee (08/03/20) Trochanteric bursitis, right hip (08/03/20) Difficulty in walking, not elsewhere classified (08/03/20) Weakness (08/03/20) Physical Therapy Treatment Note PT-OP-A Visit Information Start: 05/04/20 12:29 Freq: Status: Active Protocol: Document 08/03/20 09:48 [facility] (Rec: 08/03/20 10:31 [facility] [id number]) Out-Patient Physical Therapy Visit Information Visit Information Visit Type Treatment Note Visit Note 12/22 Visit Start Time 09:46 Visit Stop Time 10:36 Total Visit Minutes 50 Visit Number 17 Number of LAN ADMINISTRATOR Visits 0 PT-OP-B Current Condition Start: 05/04/20 12:29 Freq: Status: Active Protocol: Document 05/04/20 16:47 [facility] (Rec: 05/04/20 17:49 [facility] [id number]) Current Condition History of Current Condition Onset Date end of fall Current Complaints R knee & thigh History of Current Condition Pt reports she cannot straighten her R leg out for any length of time. She gets shooting pains into ant & post knee and med and lat thigh. Pt reports she has a terrible time sleeping and has to take ibuprofen & tylenol. Pt reports it depends on what she does during the day for her pain. Pt works at [employer] . She has to stand for the 4 hours at [employer] and she hurts really bad. 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 pt reports the pain is more when seh is tired . She used to walk at [employer] but hasn't d/t weather, pain & COVID. Pt reports the end of summer in Jan and Feb, she could hear a clicking in her knee but not all the time. Pt reports it just has gotten worse since then. Pt reports then her ankle started swelling to. Pt has a L uni knee in jan and saw the PA at the same clinic. PA thinks she has a tight ITB and there may be a meniscus injury to R knee. Mostly the pain feels muscular but notes the pain to ant L knee and into L adductor region. Pt does not remember any injuries . Pt reports PA diagnosed her with OA in R knee. Pt reports PA recommended possibly cortizone shot and she is opting out of that right now. She does not like to take meds typically. Pt has restless legs also and has to take tyleonol for that. Treatment Goals Patient/Caregiver Goals return to walking, dec pain PT-OP-C Subjective Start: 05/04/20 12:29 Freq: Status: Active Protocol: Document 08/03/20 09:48 [facility] (Rec: 08/03/20 10:31 [facility] [id number]) OP-PT Subjective Patient Comments Patient Comments Pt reprots Ams feel really good. Notes knee pain still with ext. Notes she can't stand more than 5 hours without fatigue in legs with her work shifts. Notes feels like inactivity is what makes knee worse. PT-OP-D Balance Start: 05/04/20 12:29 Freq: Status: Active Protocol: Document 05/04/20 16:47 [facility] (Rec: 05/04/20 17:49 [facility] [id number]) Balance Tests Single Limb Standing Single Limb- Right 2 sec pain Single Limb- Left 4 sec PT-OP-F Manual Assessment Start: 05/04/20 12:29 Freq: Status: Active Protocol: Document 05/04/20 16:47 [facility] (Rec: 05/04/20 17:49 [facility] [id number]) Manual Assessments Soft Tissue Assessment Soft Tissue Mobility Assessment tender at med >lat joint line, adductors, ITB, HS & quad, pes anserene PT-OP-G Mobility & Gait Start: 05/04/20 12:29 Freq: Status: Active Protocol: Document 05/04/20 16:47 [facility] (Rec: 05/04/20 17:49 [facility] [id number]) OP Gait Assessment Comments Gait Comments Pt has inc lat leaning B and dec push off on L side and dec stance time PT-OP-J Posture/Palpation/Skin Start: 05/04/20 12:29 Freq: Status: Active Protocol: Document 06/25/20 08:59 [facility] (Rec: 06/25/20 09:17 [facility] [id number]) Posture Evaluation Randy Postural Classification System Lumbar Protective Mechanism Left AP 2 Lumbar Protective Mechanism Right AP 1 Lumbar Protective Mechanism Left PA 2 Lumbar Protective Mechanism Right PA 1 PT-OP-K Range of Motion Start: 05/04/20 12:29 Freq: Status: Active Protocol: Document 06/25/20 08:59 [facility] (Rec: 06/25/20 09:17 [facility] [id number]) Knee Goniometric Range of Motion Knee Right Flexion Active (degrees) 130 Extension Active (degrees) 8 Comments pain w/ext PT-OP-L Special Tests Start: 05/04/20 12:29 Freq: Status: Active Protocol: Document 05/04/20 16:47 [facility] (Rec: 05/04/20 17:49 [facility] [id number]) Special Tests Knee Special Tests Amparo Test Test Results pain but no clicking Librado Test Results R hip flexor & quad tightness, L mild quad tightness Straight Leg Raise Test Results 92 L, 71 R Varus- 25 Degrees Test Results neg R Valgus- 25 Degrees Test Results neg R Compa's Test Results neg R Anterior Draw Test Results neg R Posterior Draw Test Results neg R PT-OP-M Strength Start: 05/04/20 12:29 Freq: Status: Active Protocol: Document 06/25/20 08:59 [facility] (Rec: 06/25/20 09:17 [facility] [id number]) Hip Strength Hip Manual Muscle Testing Right Flexion (L2) 3+ Fair+ Extension (S1) 3 Fair Abduction 3+ Fair+ Adduction 3- Fair- External Rotation 3+ Fair+ Internal Rotation 4 Good Left Flexion (L2) 4- Good- Extension (S1) 3 Fair Abduction 3+ Fair+ Adduction 3 Fair External Rotation 4- Good- Internal Rotation 4+ Good+ Knee Strength Knee Manual Muscle Testing Right Flexion (S2) 4 Good Extension (L3) 4 Good Left Flexion (S2) 4 Good Extension (L3) 5 Normal Ankle/Foot Strength Ankle and Foot Manual Muscle Testing Right Dorsiflexion (L4) 5 Normal Plantarflexion (S1) 5 Normal Left Dorsiflexion (L4) 5 Normal Plantarflexion (S1) 5 Normal PT-OP-Q Treatments Start: 05/04/20 12:29 Freq: Status: Active Protocol: Document 08/03/20 09:48 [facility] (Rec: 08/03/20 10:31 [facility] [id number]) Cardio Equipment Recumbent Elliptical ([employer]) Duration (Minutes) 6 Resistance 6 Seat Position 6 Gym Equipment Shuttle Balance red clips Details w/head turns Comments fwd & Side: WBOS & NBOS fwd: staggered stance Therapeutic Exercises Supine Exercises SAQ Side right Equipment Used bolster Reps/Minutes 20 quat set Supine Exercise Name towel under femur folded Side right Reps/Minutes 5 sec x12 Prone Exercises TKE Side right Reps/Minutes 5 sec x10 Standing Exercises TKE Side right Equipment Used in mirror focus on neutral knee Reps/Minutes 20 Manual Therapy Treatment Soft Tissue Mobilization HS Body Location R med HS & calf Mobilization Type Rolling Intensity/Depth Moderate Body Position Supine Comments w/knee ext quads Body Location quad tendon Mobilization Type Rolling,Strumming adductors Body Location R Mobilization Type Rolling Intensity/Depth Moderate Body Position Hooklying Comments distal Joint Mobilizations tibiofemoral Joint R IR of tibia w/ Ext PT-OP-R Modalities Start: 05/04/20 12:29 Freq: Status: Active Protocol: Document 08/03/20 09:48 [facility] (Rec: 08/03/20 10:31 [facility] [id number]) Hot Pack/Cold Pack Treatment Cold Pack Location R knee & quad Patient Position Hooklying Treatment Duration (minutes) 10 PT-OP-T Assessment and Plan Start: 05/04/20 12:29 Freq: Status: Active Protocol: Document 08/03/20 09:48 [facility] (Rec: 08/03/20 10:31 [facility] [id number]) Physical Therapy Assessment Goals sleep Cable Splicing Technician Goal (LTG) Pt willb e able to sleep through the night without inc pain LTG Duration 08/23/20 ROM Short Term Goal (STG) Pt will have at least 5-130 deg ROM of R knee without inc pain. 06/25-progressed to 8-130-pain w/ext still STG Duration 07/23/20 Cable Splicing Technician Goal (LTG) Pt will be able to ascend and descend stairs without inc pain. 06/25-pain w/down but up okay LTG Duration 08/13/20 activities Short Term Goal (STG) Pt will be able to do typical walks at [facility] 3x/week with no more than 3/10 pain. 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 06/25-Pt reports she can stand for her shifts with more feeling of weakness, heaviness & fatigue LTG Duration 08/01/20 strength Short Term Goal (STG) pt will be indep with HEP STG Duration achieved progressing as needed Cable Splicing Technician Goal (LTG) Pt will score at least 4+/5 on all planes for MMT for B LE and 3/5 in all plans for LPM to show imrpoved stability to allow pt to do typical activiteis without pain. LTG Duration 07/05/20 LEFS Impairment 52/80 Alf Goal (LTG) Pt will improve score to 62/80 to show improved functional ability. LTG Duration 08/23/20 Assessment Summary Assessment Pt is slowly imrpoving with ext mobility but still has dec ability to fully ext without pain. She improved slightly with range w/manual but still reports med pain but no post knee pain after Physical Therapy Plan Frequency and Duration Frequency of Treatment 2x/Week Duration of Treatment 2 months Plan of Care Start Date 06/25/20 Plan of Care End Date 08/23/20 Next Visit Focus/Plan Next Note Type Treatment Note Next Visit Plan work on ext
--- NOTE | 2020-08-13 14:31 | PT.OTN ---
Current Diagnoses Unilateral primary osteoarthritis, right knee (08/13/20) Trochanteric bursitis, right hip (08/13/20) Difficulty in walking, not elsewhere classified (08/13/20) Weakness (08/13/20) Physical Therapy Treatment Note PT-OP-A Visit Information Start: 05/04/20 12:29 Freq: Status: Active Protocol: Document 08/13/20 13:50 SP (Rec: 08/13/20 15:50 SP [id number]) Out-Patient Physical Therapy Visit Information Visit Information Visit Type Treatment Note Visit Start Time 13:50 Visit Stop Time 14:31 Total Visit Minutes 41 Visit Number 18 Number of METAL RIVET MACHINE OPERATOR Visits 1 PT-OP-B Current Condition Start: 05/04/20 12:29 Freq: Status: Active Protocol: Document 05/04/20 16:47 LR (Rec: 05/04/20 17:49 LR [id number]) Current Condition History of Current Condition Onset Date end of fall Current Complaints R knee & thigh History of Current Condition Pt reports she cannot straighten her R leg out for any length of time. She gets shooting pains into ant & post knee and med and lat thigh. Pt reports she has a terrible time sleeping and has to take ibuprofen & tylenol. Pt reports it depends on what she does during the day for her pain. Pt works at [employer] . She has to stand for the 4 hours at [employer] and she hurts really bad. 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 pt reports the pain is more when seh is tired . She used to walk at [employer] but hasn't d/t weather, pain & COVID. Pt reports the end of summer in Jan and Feb, she could hear a clicking in her knee but not all the time. Pt reports it just has gotten worse since then. Pt reports then her ankle started swelling to. Pt has a L uni knee in jan and saw the PA at the same clinic. PA thinks she has a tight ITB and there may be a meniscus injury to R knee. Mostly the pain feels muscular but notes the pain to ant L knee and into L adductor region. Pt does not remember any injuries . Pt reports PA diagnosed her with OA in R knee. Pt reports PA recommended possibly cortizone shot and she is opting out of that right now. She does not like to take meds typically. Pt has restless legs also and has to take tyleonol for that. Treatment Goals Patient/Caregiver Goals return to walking, dec pain PT-OP-C Subjective Start: 05/04/20 12:29 Freq: Status: Active Protocol: Document 08/13/20 13:50 SP (Rec: 08/13/20 15:50 SP [id number]) OP-PT Subjective Patient Comments Patient Comments Pt states R knee hurts mostly at night, restless leg and sometimes Tylenol and Ibrprofen helps. PT-OP-D Balance Start: 05/04/20 12:29 Freq: Status: Active Protocol: Document 05/04/20 16:47 LRH (Rec: 05/04/20 17:49 LR [id number]) Balance Tests Single Limb Standing Single Limb- Right 2 sec pain Single Limb- Left 4 sec PT-OP-F Manual Assessment Start: 05/04/20 12:29 Freq: Status: Active Protocol: Document 05/04/20 16:47 LRH (Rec: 05/04/20 17:49 LR [id number]) Manual Assessments Soft Tissue Assessment Soft Tissue Mobility Assessment tender at med >lat joint line, adductors, ITB, HS & quad, pes anserene PT-OP-G Mobility & Gait Start: 05/04/20 12:29 Freq: Status: Active Protocol: Document 05/04/20 16:47 LRH (Rec: 05/04/20 17:49 [facility] [id number]) OP Gait Assessment Comments Gait Comments Pt has inc lat leaning B and dec push off on L side and dec stance time PT-OP-J Posture/Palpation/Skin Start: 05/04/20 12:29 Freq: Status: Active Protocol: Document 06/25/20 08:59 LRH (Rec: 06/25/20 09:17 LR [id number]) Posture Evaluation Randy Postural Classification System Lumbar Protective Mechanism Left AP 2 Lumbar Protective Mechanism Right AP 1 Lumbar Protective Mechanism Left PA 2 Lumbar Protective Mechanism Right PA 1 PT-OP-K Range of Motion Start: 05/04/20 12:29 Freq: Status: Active Protocol: Document 06/25/20 08:59 LRH (Rec: 06/25/20 09:17 [facility] [id number]) Knee Goniometric Range of Motion Knee Right Flexion Active (degrees) 130 Extension Active (degrees) 8 Comments pain w/ext PT-OP-L Special Tests Start: 05/04/20 12:29 Freq: Status: Active Protocol: Document 05/04/20 16:47 [facility] (Rec: 05/04/20 17:49 [facility] [id number]) Special Tests Knee Special Tests Amparo Test Test Results pain but no clicking Librado Test Results R hip flexor & quad tightness, L mild quad tightness Straight Leg Raise Test Results 92 L, 71 R Varus- 25 Degrees Test Results neg R Valgus- 25 Degrees Test Results neg R Compa's Test Results neg R Anterior Draw Test Results neg R Posterior Draw Test Results neg R PT-OP-M Strength Start: 05/04/20 12:29 Freq: Status: Active Protocol: Document 06/25/20 08:59 [facility] (Rec: 06/25/20 09:17 [facility] [id number]) Hip Strength Hip Manual Muscle Testing Right Flexion (L2) 3+ Fair+ Extension (S1) 3 Fair Abduction 3+ Fair+ Adduction 3- Fair- External Rotation 3+ Fair+ Internal Rotation 4 Good Left Flexion (L2) 4- Good- Extension (S1) 3 Fair Abduction 3+ Fair+ Adduction 3 Fair External Rotation 4- Good- Internal Rotation 4+ Good+ Knee Strength Knee Manual Muscle Testing Right Flexion (S2) 4 Good Extension (L3) 4 Good Left Flexion (S2) 4 Good Extension (L3) 5 Normal Ankle/Foot Strength Ankle and Foot Manual Muscle Testing Right Dorsiflexion (L4) 5 Normal Plantarflexion (S1) 5 Normal Left Dorsiflexion (L4) 5 Normal Plantarflexion (S1) 5 Normal PT-OP-Q Treatments Start: 05/04/20 12:29 Freq: Status: Active Protocol: Document 08/13/20 13:50 SP (Rec: 08/13/20 15:50 SP [id number]) Cardio Equipment Recumbent Stepper (Sci-Fit) Duration (Minutes) 6 Resistance 2 Seat Position 8 Therapeutic Exercises Supine Exercises SAQ Side right Equipment Used large black bolster Reps/Minutes 20 quat set Supine Exercise Name towel under femur folded Side right Reps/Minutes 5 sec x12 Prone Exercises TKE Side right Reps/Minutes 5 sec x10 Standing Exercises side step Standing Exercise Name bank walk f/b/side stepping Side bilateral Equipment Used L1 Reps/Minutes 10 ft x2 laps each direction Comments cued slow controlled trailing LE, wt shift over stand LE and not trunk lean Manual Therapy Treatment Soft Tissue Mobilization HS Body Location R med HS & calf Mobilization Type Instrument Assisted,Rolling, Strumming Intensity/Depth Moderate Body Position Prone Comments -manual and manual rolling stick w/knee ext ankle over foam roll - seated instruction self application rolling stick quads Body Location quad tendon and mid to superior patella Mobilization Type Instrument Assisted,Rolling, Strumming Intensity/Depth Moderate Body Position Supine Comments manual supine, instruction use fo rolling stick self sitting mid to superior patella adductors Body Location R Mobilization Type Rolling Intensity/Depth Moderate Body Position Hooklying Comments -distal -instruction rolling stick self in sitting Joint Mobilizations tibiofemoral Joint R IR of tibia w/ Ext PT-OP-R Modalities Start: 05/04/20 12:29 Freq: Status: Active Protocol: Document 08/03/20 09:48 LRH (Rec: 08/03/20 10:31 [facility] [id number]) Hot Pack/Cold Pack Treatment Cold Pack Location R knee & quad Patient Position Hooklying Treatment Duration (minutes) 10 PT-OP-T Assessment and Plan Start: 05/04/20 12:29 Freq: Status: Active Protocol: Document 08/13/20 13:50 SP (Rec: 08/13/20 15:50 SP [id number]) Physical Therapy Assessment Goals sleep [employer] Goal (LTG) Pt will be able to sleep through the night without inc pain 08/13/20: restless leg still wakes her up with pain, relief by walking then sit and knit distraction allows to get back to sleep. LTG Duration 08/23/20 activities Short Term Goal (STG) Pt will be able to do typical walks at [facility] 3x/week with no more than 3/10 pain. 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 06/25-Pt reports she can stand for her shifts with more feeling of weakness, heaviness & fatigue LTG Duration 08/01/20 strength Short Term Goal (STG) pt will be indep with HEP STG Duration achieved progressing as needed Skilled Nursing Goal (LTG) Pt will score at least 4+/5 on all planes for MMT for B LE and 3/5 in all plans for LPM to show imrpoved stability to allow pt to do typical activiteis without pain. LTG Duration 07/05/20 LEFS Impairment 52/80 [employer] Goal (LTG) Pt will improve score to 62/80 to show improved functional ability. LTG Duration 08/23/20 Assessment Summary Assessment Pt responded well to intruction of self manual STMs using rolling pin to quad, HS , adductors, calf in sitting no adverse afffect. Good extension control during end range SAQ. Cued wt shift over stance with awareness of stationary hip and knee ext with slow eccentric control trailing LE with improved quality R knee stabilization and little increase in ext. Physical Therapy Plan Frequency and Duration Frequency of Treatment 2x/Week Duration of Treatment 2 months Plan of Care Start Date 06/25/20 Plan of Care End Date 08/23/20 Therapeutic Interventions Therapeutic Interventions Aquatic Therapy,Balance Training,Gait Training,Home Exercise Program,Joint Mobilizations,Manual Therapy, Neuromuscular Re-education, Orthotic/Prosthetic Management ,Patient/Caregiver Education, Self-Care/Home Management,Soft Tissue Mobilization,Taping, Therapeutic Activities, Therapeutic Exercises Modalities Cold Pack/Ice Massage,Electric Stimulation,Hot Packs, Infrared Therapy,Iontophoresis ,Ultrasound Next Visit Focus/Plan Next Note Type Treatment Note Next Visit Plan Assess response to manual, tx and HEP review. continue on PT's recommendations of focus on work on R knee ext.
--- NOTE | 2020-08-17 13:55 | PT.OTN ---
Current Diagnoses Unilateral primary osteoarthritis, right knee (08/17/20) Trochanteric bursitis, right hip (08/17/20) Difficulty in walking, not elsewhere classified (08/17/20) Weakness (08/17/20) Physical Therapy Treatment Note PT-OP-A Visit Information Start: 05/04/20 12:29 Freq: Status: Active Protocol: Document 08/17/20 13:03 SP (Rec: 08/17/20 14:24 SP [id number]) Out-Patient Physical Therapy Visit Information Visit Information Visit Type Treatment Note Visit Start Time 13:03 Visit Stop Time 13:55 Total Visit Minutes 52 Visit Number 19 Number of NEURORADIOLOGIST Visits 2 PT-OP-B Current Condition Start: 05/04/20 12:29 Freq: Status: Active Protocol: Document 05/04/20 16:47 LR (Rec: 05/04/20 17:49 LR [id number]) Current Condition History of Current Condition Onset Date end of fall Current Complaints R knee & thigh History of Current Condition Pt reports she cannot straighten her R leg out for any length of time. She gets shooting pains into ant & post knee and med and lat thigh. Pt reports she has a terrible time sleeping and has to take ibuprofen & tylenol. Pt reports it depends on what she does during the day for her pain. Pt works at [employer] . She has to stand for the 4 hours at [employer] and she hurts really bad. 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 pt reports the pain is more when seh is tired . She used to walk at [employer] but hasn't d/t weather, pain & COVID. Pt reports the end of summer in Jan and Feb, she could hear a clicking in her knee but not all the time. Pt reports it just has gotten worse since then. Pt reports then her ankle started swelling to. Pt has a L uni knee in jan and saw the PA at the same clinic. PA thinks she has a tight ITB and there may be a meniscus injury to R knee. Mostly the pain feels muscular but notes the pain to ant L knee and into L adductor region. Pt does not remember any injuries . Pt reports PA diagnosed her with OA in R knee. Pt reports PA recommended possibly cortizone shot and she is opting out of that right now. She does not like to take meds typically. Pt has restless legs also and has to take tyleonol for that. Treatment Goals Patient/Caregiver Goals return to walking, dec pain PT-OP-C Subjective Start: 05/04/20 12:29 Freq: Status: Active Protocol: Document 08/17/20 13:03 SP (Rec: 08/17/20 14:24 SP [id number]) OP-PT Subjective Patient Comments Patient Comments Pt states R knee soreness only at night and the massage/ stick rolling and stretching was helpful. Pt stated did go for about 1-1.3 miles from house then around [employer] x2 laps and back. PT-OP-D Balance Start: 05/04/20 12:29 Freq: Status: Active Protocol: Document 05/04/20 16:47 LR (Rec: 05/04/20 17:49 [facility] [id number]) Balance Tests Single Limb Standing Single Limb- Right 2 sec pain Single Limb- Left 4 sec PT-OP-F Manual Assessment Start: 05/04/20 12:29 Freq: Status: Active Protocol: Document 05/04/20 16:47 LR (Rec: 05/04/20 17:49 [facility] [id number]) Manual Assessments Soft Tissue Assessment Soft Tissue Mobility Assessment tender at med >lat joint line, adductors, ITB, HS & quad, pes anserene PT-OP-G Mobility & Gait Start: 05/04/20 12:29 Freq: Status: Active Protocol: Document 05/04/20 16:47 LR (Rec: 05/04/20 17:49 [facility] [id number]) OP Gait Assessment Comments Gait Comments Pt has inc lat leaning B and dec push off on L side and dec stance time PT-OP-J Posture/Palpation/Skin Start: 05/04/20 12:29 Freq: Status: Active Protocol: Document 06/25/20 08:59 [facility] (Rec: 06/25/20 09:17 [facility] [id number]) Posture Evaluation Randy Postural Classification System Lumbar Protective Mechanism Left AP 2 Lumbar Protective Mechanism Right AP 1 Lumbar Protective Mechanism Left PA 2 Lumbar Protective Mechanism Right PA 1 PT-OP-K Range of Motion Start: 05/04/20 12:29 Freq: Status: Active Protocol: Document 06/25/20 08:59 [facility] (Rec: 06/25/20 09:17 [facility] [id number]) Knee Goniometric Range of Motion Knee Right Flexion Active (degrees) 130 Extension Active (degrees) 8 Comments pain w/ext PT-OP-L Special Tests Start: 05/04/20 12:29 Freq: Status: Active Protocol: Document 05/04/20 16:47 [facility] (Rec: 05/04/20 17:49 [facility] [id number]) Special Tests Knee Special Tests Amparo Test Test Results pain but no clicking Librado Test Results R hip flexor & quad tightness, L mild quad tightness Straight Leg Raise Test Results 92 L, 71 R Varus- 25 Degrees Test Results neg R Valgus- 25 Degrees Test Results neg R Compa's Test Results neg R Anterior Draw Test Results neg R Posterior Draw Test Results neg R PT-OP-M Strength Start: 05/04/20 12:29 Freq: Status: Active Protocol: Document 06/25/20 08:59 [facility] (Rec: 06/25/20 09:17 [facility] [id number]) Hip Strength Hip Manual Muscle Testing Right Flexion (L2) 3+ Fair+ Extension (S1) 3 Fair Abduction 3+ Fair+ Adduction 3- Fair- External Rotation 3+ Fair+ Internal Rotation 4 Good Left Flexion (L2) 4- Good- Extension (S1) 3 Fair Abduction 3+ Fair+ Adduction 3 Fair External Rotation 4- Good- Internal Rotation 4+ Good+ Knee Strength Knee Manual Muscle Testing Right Flexion (S2) 4 Good Extension (L3) 4 Good Left Flexion (S2) 4 Good Extension (L3) 5 Normal Ankle/Foot Strength Ankle and Foot Manual Muscle Testing Right Dorsiflexion (L4) 5 Normal Plantarflexion (S1) 5 Normal Left Dorsiflexion (L4) 5 Normal Plantarflexion (S1) 5 Normal PT-OP-Q Treatments Start: 05/04/20 12:29 Freq: Status: Active Protocol: Document 08/17/20 13:03 SP (Rec: 08/17/20 14:24 SP [id number]) Cardio Equipment Recumbent Elliptical (Biodex) Duration (Minutes) 8 Resistance 6 Seat Position 6 Other STM, miles, METS Gym Equipment Shuttle Recovery unilateral squat Resistance 25# Shuttle Recovery Platform Stable Reps/Time x10 bilateral squat Resistance 50# Shuttle Recovery Platform Stable Reps/Time 2x10 Shuttle Balance red clips Details w/head turns, vertical Reps/Duration 8' Comments fwd & Side: WBOS & NBOS fwd: staggered stance Sport Cord back Exercise Details B walk Cord/Resistance green Reps/Duration 10 sidestep Exercise Details B Cord/Resistance green Reps/Duration 5 fwd Exercise Details focus on good wt shift Cord/Resistance green Reps/Duration 10x Therapeutic Exercises Supine Exercises SAQ Side right Equipment Used large black bolster Reps/Minutes 20 quat set Supine Exercise Name towel under femur folded Side right Reps/Minutes 5 sec x12 Sidelying Exercises clamshell Sidelying Exercise Name supine clam- discussed w/ TB continue at home. Side bilateral PT-OP-R Modalities Start: 05/04/20 12:29 Freq: Status: Active Protocol: Document 08/17/20 13:03 SP (Rec: 08/17/20 14:24 SP [id number]) Hot Pack/Cold Pack Treatment ice cup Location R pes ancerine Patient Position Hooklying Treatment Duration (minutes) 4 Patient Tolerance Good Comments good tolerance, skin pink, cold 1 min post removal. Decreased discomfort post application. PT-OP-T Assessment and Plan Start: 05/04/20 12:29 Freq: Status: Active Protocol: Document 08/17/20 13:03 SP (Rec: 08/17/20 14:24 SP [id number]) Physical Therapy Assessment Goals sleep [employer] Goal (LTG) Pt will be able to sleep through the night without inc pain 08/13/20: restless leg still wakes her up with pain, relief by walking then sit and knit distraction allows to get back to sleep. LTG Duration 08/23/20 ROM Short Term Goal (STG) Pt will have at least 5-130 deg ROM of R knee without inc pain. 06/25:progressed to 8-130-pain w/ext still 08/17/20: progressed to 1-132- slight discomfort over pesancerine with end range ext R knee STG Duration 07/23/20 Other Sports Coach Or Instructor Goal (LTG) Pt will be able to ascend and descend stairs without inc pain. 06/25-pain w/down but up okay LTG Duration 08/13/20 activities Short Term Goal (STG) Pt will be able to do typical walks at [facility] 3x/week with no more than 3/10 pain. 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 06/25-Pt reports she can stand for her shifts with more feeling of weakness, heaviness & fatigue LTG Duration 08/01/20 strength Short Term Goal (STG) pt will be indep with HEP STG Duration achieved progressing as needed [facility] Goal (LTG) Pt will score at least 4+/5 on all planes for MMT for B LE and 3/5 in all plans for LPM to show imrpoved stability to allow pt to do typical activiteis without pain. LTG Duration 07/05/20 LEFS Impairment 52/80 Other Sports Coach Or Instructor Goal (LTG) Pt will improve score to 62/80 to show improved functional ability. LTG Duration 08/23/20 Assessment Summary Assessment Pt reported the stretching/ rolling muscles has helped with decreased restless leg when arrises at night. Pt required cuing for knee ext awareness during sport cord opposite LE mobility, continues to have soreness post ex over R knee pes ancerine that decreased post ice cup. Pt is making gains in ROM: 7 degree ext and 2 deg flexion, see goal ROM for measurement. Physical Therapy Plan Frequency and Duration Frequency of Treatment 2x/Week Duration of Treatment 2 months Plan of Care Start Date 06/25/20 Plan of Care End Date 08/23/20 Therapeutic Interventions Therapeutic Interventions Aquatic Therapy,Balance Training,Gait Training,Home Exercise Program,Joint Mobilizations,Manual Therapy, Neuromuscular Re-education, Orthotic/Prosthetic Management ,Patient/Caregiver Education, Self-Care/Home Management,Soft Tissue Mobilization,Taping, Therapeutic Activities, Therapeutic Exercises Modalities Cold Pack/Ice Massage,Electric Stimulation,Hot Packs, Infrared Therapy,Iontophoresis ,Ultrasound Next Visit Focus/Plan Next Note Type Treatment Note Next Visit Plan Assess response to ice cup, HEP review R knee ext, gym equipment. Continue on PT's recommendations of focus on work on R knee ext.
--- NOTE | 2020-08-24 16:02 | PT.OTN ---
Current Diagnoses Unilateral primary osteoarthritis, right knee (08/24/20) Trochanteric bursitis, right hip (08/24/20) Difficulty in walking, not elsewhere classified (08/24/20) Weakness (08/24/20) Physical Therapy Treatment Note PT-OP-A Visit Information Start: 05/04/20 12:29 Freq: Status: Active Protocol: Document 08/24/20 15:19 [facility] (Rec: 08/24/20 16:01 [facility] [id number]) Out-Patient Physical Therapy Visit Information Visit Information Visit Type Discharge Summary Visit Start Time 15:15 Visit Stop Time 15:55 Total Visit Minutes 40 Visit Number 20 Number of VICE PRESIDENT OF PROCUREMENT Visits 0 PT-OP-B Current Condition Start: 05/04/20 12:29 Freq: Status: Active Protocol: Document 05/04/20 16:47 [facility] (Rec: 05/04/20 17:49 [facility] [id number]) Current Condition History of Current Condition Onset Date end of fall Current Complaints R knee & thigh History of Current Condition Pt reports she cannot straighten her R leg out for any length of time. She gets shooting pains into ant & post knee and med and lat thigh. Pt reports she has a terrible time sleeping and has to take ibuprofen & tylenol. Pt reports it depends on what she does during the day for her pain. Pt works at [employer] . She has to stand for the 4 hours at [employer] and she hurts really bad. 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 pt reports the pain is more when seh is tired . She used to walk at [employer] but hasn't d/t weather, pain & COVID. Pt reports the end of summer in Jan and Feb, she could hear a clicking in her knee but not all the time. Pt reports it just has gotten worse since then. Pt reports then her ankle started swelling to. Pt has a L uni knee in jan and saw the PA at the same clinic. PA thinks she has a tight ITB and there may be a meniscus injury to R knee. Mostly the pain feels muscular but notes the pain to ant L knee and into L adductor region. Pt does not remember any injuries . Pt reports PA diagnosed her with OA in R knee. Pt reports PA recommended possibly cortizone shot and she is opting out of that right now. She does not like to take meds typically. Pt has restless legs also and has to take tyleonol for that. Treatment Goals Patient/Caregiver Goals return to walking, dec pain PT-OP-C Subjective Start: 05/04/20 12:29 Freq: Status: Active Protocol: Document 08/24/20 15:19 [facility] (Rec: 08/24/20 16:01 [facility] [id number]) OP-PT Subjective Patient Comments Patient Comments Pt walked here. Notes seh wakes up at [place] but sometimes its d/t restless legs Patient Reported Progress Improving PT-OP-D Balance Start: 05/04/20 12:29 Freq: Status: Active Protocol: Document 05/04/20 16:47 [facility] (Rec: 05/04/20 17:49 [facility] [id number]) Balance Tests Single Limb Standing Single Limb- Right 2 sec pain Single Limb- Left 4 sec PT-OP-F Manual Assessment Start: 05/04/20 12:29 Freq: Status: Active Protocol: Document 05/04/20 16:47 [facility] (Rec: 05/04/20 17:49 [facility] [id number]) Manual Assessments Soft Tissue Assessment Soft Tissue Mobility Assessment tender at med >lat joint line, adductors, ITB, HS & quad, pes anserene PT-OP-G Mobility & Gait Start: 05/04/20 12:29 Freq: Status: Active Protocol: Document 05/04/20 16:47 [facility] (Rec: 05/04/20 17:49 [facility] [id number]) OP Gait Assessment Comments Gait Comments Pt has inc lat leaning B and dec push off on L side and dec stance time PT-OP-J Posture/Palpation/Skin Start: 05/04/20 12:29 Freq: Status: Active Protocol: Document 08/24/20 15:19 [facility] (Rec: 08/24/20 16:01 [facility] [id number]) Posture Evaluation Randy Postural Classification System Lumbar Protective Mechanism Left AP 3 Lumbar Protective Mechanism Right AP 2 Lumbar Protective Mechanism Left PA 3 Lumbar Protective Mechanism Right PA 2 PT-OP-K Range of Motion Start: 05/04/20 12:29 Freq: Status: Active Protocol: Document 06/25/20 08:59 [facility] (Rec: 06/25/20 09:17 [facility] [id number]) Knee Goniometric Range of Motion Knee Right Flexion Active (degrees) 130 Extension Active (degrees) 8 Comments pain w/ext PT-OP-L Special Tests Start: 05/04/20 12:29 Freq: Status: Active Protocol: Document 05/04/20 16:47 [facility] (Rec: 05/04/20 17:49 [facility] [id number]) Special Tests Knee Special Tests Amparo Test Test Results pain but no clicking Librado Test Results R hip flexor & quad tightness, L mild quad tightness Straight Leg Raise Test Results 92 L, 71 R Varus- 25 Degrees Test Results neg R Valgus- 25 Degrees Test Results neg R Compa's Test Results neg R Anterior Draw Test Results neg R Posterior Draw Test Results neg R PT-OP-M Strength Start: 05/04/20 12:29 Freq: Status: Active Protocol: Document 08/24/20 15:19 [facility] (Rec: 08/24/20 16:01 [facility] [id number]) Hip Strength Hip Manual Muscle Testing Right Flexion (L2) 4 Good Extension (S1) 4- Good- Abduction 4 Good Adduction 4- Good- External Rotation 4+ Good+ Internal Rotation 5 Normal Left Flexion (L2) 4- Good- Extension (S1) 4 Good Abduction 4 Good Adduction 4- Good- External Rotation 4+ Good+ Internal Rotation 4+ Good+ Knee Strength Knee Manual Muscle Testing Right Flexion (S2) 5 Normal Extension (L3) 5 Normal Left Flexion (S2) 5 Normal Extension (L3) 5 Normal Ankle/Foot Strength Ankle and Foot Manual Muscle Testing Right Dorsiflexion (L4) 5 Normal Plantarflexion (S1) 5 Normal Left Dorsiflexion (L4) 5 Normal Plantarflexion (S1) 5 Normal Comments 20 heel raises B PT-OP-Q Treatments Start: 05/04/20 12:29 Freq: Status: Active Protocol: Document 08/24/20 15:19 [facility] (Rec: 08/24/20 16:01 [facility] [id number]) Therapeutic Exercises Sidelying Exercises hip add Side right Reps/Minutes 12 Standing Exercises SLS Standing Exercise Name trials Side bilateral lunges Standing Exercise Name mini Side bilateral Equipment Used rail Reps/Minutes 10 Comments cues for longer step squat Standing Exercise Name mini over chair Side bilateral Reps/Minutes 10 hip strength Standing Exercise Name hip abd & hip ext Side bilateral Equipment Used L2 Reps/Minutes 15 ea Manual Therapy Treatment Soft Tissue Mobilization ant knee Body Location ant/med knee Mobilization Type Myofascial Release,Strumming Self-Care/Home Management Treatment Education Other Education Dicussed importance of strengthening a few times a week along w/balance and stretching daily before bed to help w/restless legs. discussed sleep stduy d/t restless legs PT-OP-R Modalities Start: 05/04/20 12:29 Freq: Status: Active Protocol: Document 08/17/20 13:03 [facility] (Rec: 08/17/20 14:24 [facility] [id number]) Hot Pack/Cold Pack Treatment ice cup Location R pes ancerine Patient Position Hooklying Treatment Duration (minutes) 4 Patient Tolerance Good Comments good tolerance, skin pink, cold 1 min post removal. Decreased discomfort post application. PT-OP-T Assessment and Plan Start: 05/04/20 12:29 Freq: Status: Active Protocol: Document 08/24/20 15:19 [facility] (Rec: 08/24/20 16:01 [facility] [id number]) Physical Therapy Assessment Goals sleep Group Home Goal (LTG) Pt will be able to sleep through the night without inc pain 08/13/20: restless leg still wakes her up with pain, relief by walking then sit and knit distraction allows to get back to sleep. LTG Duration takes tylenol at night but a lot is for restless leg ROM Short Term Goal (STG) Pt will have at least 5-130 deg ROM of R knee without inc pain. 06/25:progressed to 8-130-pain w/ext still 08/17/20: progressed to 1-132- slight discomfort over pesancerine with end range ext R knee STG Duration 3-134-no pain at ext Plug Making Operator Goal (LTG) Pt will be able to ascend and descend stairs without inc pain. 06/25-pain w/down but up okay LTG Duration achieved activities Short Term Goal (STG) Pt will be able to do typical walks at [employer] 3x/week with no more than 3/10 pain. 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 06/25-Pt reports she can stand for her shifts with more feeling of weakness, heaviness & fatigue LTG Duration achieved strength Short Term Goal (STG) pt will be indep with HEP STG Duration achieved progressing as needed Plug Making Operator Goal (LTG) Pt will score at least 4+/5 on all planes for MMT for B LE and 3/5 in all plans for LPM to show imrpoved stability to allow pt to do typical activiteis without pain. LTG Duration signifncalty imrpoved LEFS Impairment 52/80 Group Home Goal (LTG) Pt will improve score to 62/80 to show improved functional ability. LTG Duration achieved to 66/80 Assessment Summary Assessment Pt has met most goals at this time. She cont to improve with strength and balance and is indep with HEP and was able to review form and which exercises are most improtant. Dicussed importance of strengthening a few times a week along w/balance and stretching daily before bed to help w/restless legs. She is DC at this time d/t meeting most goals. Physical Therapy Plan Frequency and Duration Frequency of Treatment 1x Plan of Care Start Date 08/24/20 Plan of Care End Date 08/24/20 Therapeutic Interventions Therapeutic Interventions Aquatic Therapy,Balance Training,Gait Training,Home Exercise Program,Joint Mobilizations,Manual Therapy, Neuromuscular Re-education, Orthotic/Prosthetic Management ,Patient/Caregiver Education, Self-Care/Home Management,Soft Tissue Mobilization,Taping, Therapeutic Activities, Therapeutic Exercises Modalities Cold Pack/Ice Massage,Electric Stimulation,Hot Packs, Infrared Therapy,Iontophoresis ,Ultrasound Discharge Physical Therapy Discharge Reasons Goals Met
--- NOTE | 2020-08-24 16:02 | PT.OPPOC ---
Physical, Occupational & Speech Therapy At [facility] Current Diagnoses Unilateral primary osteoarthritis, right knee (08/24/20) Trochanteric bursitis, right hip (08/24/20) Difficulty in walking, not elsewhere classified (08/24/20) Weakness (08/24/20) Visit Care Team Role Provider Type Jess Jordan PA-C Primary Care Provider Non-Staff Specialty: Internal Medicine Address: [address] [place] [address], [id number] Email: [email or web address] Fede Moore DO Family Provider Physician Specialty: Internal Medicine Address: [address] [place] [address], [id number] Email: Attending Provider Referring Provider Specialty: Address: Phone: Fax: Email: Plan Of Care PT-OP-T Assessment and Plan Start: 05/04/20 12:29 Freq: Status: Active Protocol: Document 08/24/20 15:19 [facility] (Rec: 08/24/20 16:01 [facility] [id number]) Physical Therapy Assessment Goals sleep Program Director Group Work Goal (LTG) Pt will be able to sleep through the night without inc pain 08/13/20: restless leg still wakes her up with pain, relief by walking then sit and knit distraction allows to get back to sleep. LTG Duration takes tylenol at night but a lot is for restless leg ROM Short Term Goal (STG) Pt will have at least 5-130 deg ROM of R knee without inc pain. 06/25:progressed to 8-130-pain w/ext still 08/17/20: progressed to 1-132- slight discomfort over pesancerine with end range ext R knee STG Duration 3-134-no pain at ext Program Director Group Work Goal (LTG) Pt will be able to ascend and descend stairs without inc pain. 06/25-pain w/down but up okay LTG Duration achieved activities Short Term Goal (STG) Pt will be able to do typical walks at [employer] 3x/week with no more than 3/10 pain. 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 06/25-Pt reports she can stand for her shifts with more feeling of weakness, heaviness & fatigue LTG Duration achieved strength Short Term Goal (STG) pt will be indep with HEP STG Duration achieved progressing as needed [facility] Goal (LTG) Pt will score at least 4+/5 on all planes for MMT for B LE and 3/5 in all plans for LPM to show imrpoved stability to allow pt to do typical activiteis without pain. LTG Duration signifncalty imrpoved LEFS Impairment 52/80 [facility] Goal (LTG) Pt will improve score to 62/80 to show improved functional ability. LTG Duration achieved to 66/80 Assessment Summary Assessment Pt has met most goals at this time. She cont to improve with strength and balance and is indep with HEP and was able to review form and which exercises are most improtant. Dicussed importance of strengthening a few times a week along w/balance and stretching daily before bed to help w/restless legs. She is DC at this time d/t meeting most goals. Physical Therapy Plan Frequency and Duration Frequency of Treatment 1x Plan of Care Start Date 08/24/20 Plan of Care End Date 08/24/20 Therapeutic Interventions Therapeutic Interventions Aquatic Therapy,Balance Training,Gait Training,Home Exercise Program,Joint Mobilizations,Manual Therapy, Neuromuscular Re-education, Orthotic/Prosthetic Management ,Patient/Caregiver Education, Self-Care/Home Management,Soft Tissue Mobilization,Taping, Therapeutic Activities, Therapeutic Exercises Modalities Cold Pack/Ice Massage,Electric Stimulation,Hot Packs, Infrared Therapy,Iontophoresis ,Ultrasound Discharge Physical Therapy Discharge Reasons Goals Met Plan of Care Dates Plan of Care Start Date 08/24/20 Plan of Care End Date 08/24/20 Electronically Signed by: Radha Wesley, PT 08/24/20 1603 Please Sign and Return: I have reviewed this Plan of Care and certify that the skilled therapy services above are required to meet the patient?s needs. Physician Signature Date Printed Name and Credentials Clinical Instructor Signature Printed Name and Credentials
== END 2020-08-25 09:34 | disposition home or self-care (01) ==
LOC: PHYS 15:15
PROVIDERS: Family Provider Internal Medicine; PCP Physician Assistant
DX: M17.11 Unilateral primary osteoarthritis, right knee (principal); M70.61 Trochanteric bursitis, right hip; R53.1 Weakness; R26.2 Difficulty in walking, not elsewhere classified
CPT/HCPCS: 97010; 97014; 97110; 97112; 97140; 97162; 97530; 97535; G0283

== ENCOUNTER → 2021-04-16 12:01 | Outpatient (CLI) | payer MEDICARE, OTHER, SELFPAY ==
[2021-04-16 12:26] LABS: COVID19 -Nasal RAPID Negative (Negative)
== END ==
PROVIDERS: Family Provider Internal Medicine; PCP Physician Assistant; Visit Provider Nurse Practitioner Family
DX: Z20.822 Contact with and (suspected) exposure to COVID-19 (principal); J31.2 Chronic pharyngitis
CPT/HCPCS: 87070; 87635

== ENCOUNTER → 2021-04-22 13:02 | Outpatient (CLI) | payer MEDICARE, OTHER, SELFPAY ==
--- NOTE | 2021-04-22 13:05 | DI.RAD.S_ITS ---
PROCEDURE: XR CHEST 2V INDICATIONS: COUGH/SOB/CONGESTION TECHNIQUE: 2 views of the chest were acquired. COMPARISON: None. FINDINGS: Surgical changes and devices: None. Lungs and pleura: Lungs are clear. No pleural effusions or pneumothorax. Mediastinum: Mediastinal contours are normal. Heart size is normal. Bones and chest wall: No suspicious bony abnormalities. Soft tissues appear unremarkable. IMPRESSION: No acute pulmonary process. Dictated by: Rosita Mckay M.D. on 04/22/2021 at 15:02 Approved by: Rosita Mckay M.D. on 04/22/2021 at 15:02
== END ==
PROVIDERS: Family Provider Internal Medicine; PCP Physician Assistant; Referring Provider Physician Assistant; Visit Provider Physician Assistant
DX: R05.9 Cough, unspecified (principal); R06.02 Shortness of breath; R09.89 Other specified symptoms and signs involving the circulatory and respiratory systems
CPT/HCPCS: 71046

== ENCOUNTER 2021-11-09 09:40 | Outpatient (RCR) | payer MEDICARE, OTHER, SELFPAY ==
--- NOTE | 2021-11-09 10:26 | PT.OIE ---
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) Achilles tendinitis, right leg (11/09/21) Past Medical History (Last Reviewed 04/22/21 @ 16:41 by Mandi Head PA-C) Hyperlipidemia (~1991) Ischemic colitis (~2010) Past Surgical History (Last Reviewed 04/22/21 @ 16:41 by Mandi Head PA-C) H/O hysterectomy with oophorectomy History of left knee surgery (~2009) Visit Care Team Role Provider Type Jess Jordan PA-C Family Provider Non-Staff Primary Care Provider Specialty: Internal Medicine Address: [address] [place] [address], [phone] Email: [email or web address] Attending Provider Physician Referring Provider Specialty: Orthopedic Surgery Podiatry Address: [address] [place] [address], [id number] Email: [email or web address] Physical Therapy Initial Evaluation PT-OP-A Visit Information Start: 11/09/21 10:12 Freq: Status: Active Protocol: Document 11/09/21 09:45 [facility] (Rec: 11/09/21 10:18 [facility] [id number]) Out-Patient Physical Therapy Visit Information Visit Information Visit Type Initial Evaluation Visit Start Time 09:45 Visit Stop Time 10:13 Total Visit Minutes 28 Visit Number 1 Number of MANAGER REPORTING Visits 0 Evaluation Information Evaluation Date 11/09/21 PT-OP-B Current Condition Start: 11/09/21 10:12 Freq: Status: Active Protocol: Document 11/09/21 09:45 [facility] (Rec: 11/09/21 10:18 [facility] [id number]) Current Condition History of Current Condition Onset Date August Current Complaints R plantar surface foot pain History of Current Condition Pt is a 81 year old female presenting with 2-3 month history of plantar fascia pain in her right foot. Pt reports she has previously had plantar fasciitis, but this has lasted longer than last time, so she wanted to get seen by a Heat Treat Inspector, who then referred her to PT. Pt acknowledges that since she has had to wait to get seen by both the Heat Treat Inspector and PT, she has been feeling much better. 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 Pt walks her dog ~1.5 miles each day, but hasn't been able to the past two months. Pt wears her tennis shoes out walking, but only wears sandals around her yard. Notes her pain is currently a 0.5/10. Overall, admits that since she is doing better, she doesn't want to take time away from someone who needs it more, and feels that as long as her evaluation doesn't uncover anything unexpected, she probably does need any further PT. PT-OP-C Subjective Start: 11/09/21 10:12 Freq: Status: Active Protocol: Document 11/09/21 09:45 [facility] (Rec: 11/09/21 10:22 [facility] [id number]) OP-PT Subjective Patient Comments Patient Comments I don't have a tennis ball, but I know I should get one and use it to massage my foot. I also forgot about the whole 'freezing a bottle of water' thing until yesterday, so I know I need to do that, too. Patient Reported Progress Improving OP-PT Pain Assessment Comments Pain Comments Pt reports a pain of 0.5/10 on her right plantar surface PT-OP-F Manual Assessment Start: 11/09/21 10:12 Freq: Status: Active Protocol: Document 11/09/21 09:45 [facility] (Rec: 11/09/21 10:22 [facility] [id number]) Manual Assessments Soft Tissue Assessment Soft Tissue Mobility Assessment No noticeable signs of swelling or inflammation along plantar surface, Achilles tendon, or calf. Joint Mobility Assessment Joint Mobility Assessment Ankle mobility WNL PT-OP-G Mobility & Gait Start: 11/09/21 10:12 Freq: Status: Active Protocol: Document 11/09/21 09:45 [facility] (Rec: 11/09/21 10:22 [facility] [id number]) OP Gait Assessment Gait Gait Assistance Required: Independent Assistive Devices Assistive Device None PT-OP-J Posture/Palpation/Skin Start: 11/09/21 10:12 Freq: Status: Active Protocol: Document 11/09/21 09:45 [facility] (Rec: 11/09/21 10:22 [facility] [id number]) Posture Evaluation Position Standing Foot Arch (R) Low Arch Comments Posture Comments Mildly decreased arch R vs L PT-OP-K Range of Motion Start: 11/09/21 10:12 Freq: Status: Active Protocol: Document 11/09/21 09:45 [facility] (Rec: 11/09/21 10:22 [facility] [id number]) Ankle and Foot Goniometric Range of Motion Ankle and Foot Right Active Ankle/Foot ROM WFL Yes Testing Position Sitting Ankle and Foot ROM Limitations Comments WNL PT-OP-T Assessment and Plan Start: 11/09/21 10:12 Freq: Status: Active Protocol: Document 11/09/21 09:45 [facility] (Rec: 11/09/21 10:26 [facility] [id number]) Physical Therapy Assessment Rehab Potential Rehabilitation Potential Excellent Evaluation Complexity Number of Personal Factors/Comorbidities 0 Number of Body Systems Impaired 1-2 Clinical Presentation at Evaluation Stable Impairments Impairments Pain Assessment Summary Assessment Pt presents with signs and symptoms of resolving R plantar fasciitis. Pt already feels like she is good enough that she does not need any further intervention. Not notable deficits discovered during her evaluation. Therapist and patient discussed shoe support, marble pick-up, and frozen water bottle massage. Pt feel comfortable with performing these activities independently , and requests discharge from skilled PT. Physical Therapy Plan Frequency and Duration Frequency of Treatment Eval only Duration of Treatment 1 day Plan of Care Start Date 11/09/21 Plan of Care End Date 11/10/21 Discharge Physical Therapy Discharge Reasons Patient Request Next Visit Focus/Plan Next Note Type Discharge Summary
--- NOTE | 2021-11-09 10:27 | PT.OPPOC ---
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) Achilles tendinitis, right leg (11/09/21) Visit Care Team Role Provider Type Jess Jordan PA-C Family Provider Non-Staff Primary Care Provider Specialty: Internal Medicine Address: [address] [place] [address], [phone] Email: [email or web address] DPM Attending Provider Physician Referring Provider Specialty: Orthopedic Surgery Podiatry Address: [address] [place] [address], [address] Email: [email or web address] Plan Of Care PT-OP-T Assessment and Plan Start: 11/09/21 10:12 Freq: Status: Active Protocol: Document 11/09/21 09:45 [facility] (Rec: 11/09/21 10:26 [facility] [id number]) Physical Therapy Assessment Rehab Potential Rehabilitation Potential Excellent Evaluation Complexity Number of Personal Factors/Comorbidities 0 Number of Body Systems Impaired 1-2 Clinical Presentation at Evaluation Stable Impairments Impairments Pain Assessment Summary Assessment Pt presents with signs and symptoms of resolving R plantar fasciitis. Pt already feels like she is good enough that she does not need any further intervention. Not notable deficits discovered during her evaluation. Therapist and patient discussed shoe support, marble pick-up, and frozen water bottle massage. Pt feel comfortable with performing these activities independently , and requests discharge from skilled PT. Physical Therapy Plan Frequency and Duration Frequency of Treatment Eval only Duration of Treatment 1 day Plan of Care Start Date 11/09/21 Plan of Care End Date 11/10/21 Discharge Physical Therapy Discharge Reasons Patient Request Next Visit Focus/Plan Next Note Type Discharge Summary Plan of Care Dates Plan of Care Start Date 11/09/21 Plan of Care End Date 11/10/21 Electronically Signed by: Son Medrano, PT 11/09/21 9800 If you are in agreement with this Plan of Care, please return a signed and dated copy. I have reviewed this Plan of Care and certify that the skilled therapy services above are required to meet the patient?s needs. Physician Signature Date Printed Name and Credentials Clinical Instructor Signature Printed Name and Credentials
== END 2021-11-10 14:06 ==
LOC: PHYS 09:40
PROVIDERS: Family Provider Physician Assistant; PCP Physician Assistant; Referring Provider Podiatrist; Visit Provider Podiatrist
DX: M72.2 Plantar fascial fibromatosis (principal); M76.61 Achilles tendinitis, right leg
CPT/HCPCS: 97161

== ENCOUNTER → 2021-11-24 11:17 | Outpatient (CLI) | payer MEDICARE, OTHER, SELFPAY | PROVIDERS: Family Provider Physician Assistant; PCP Physician Assistant; Referring Provider Physician Assistant; Visit Provider Physician Assistant | DX: Z78.0 Asymptomatic menopausal state (principal); M85.88 Other specified disorders of bone density and structure, other site | CPT/HCPCS: 77080 ==

== ENCOUNTER → 2022-03-18 13:12 | Outpatient (CLI) | payer MEDICARE, OTHER, SELFPAY ==
--- NOTE | 2022-03-18 13:26 | DI.RAD.S_ITS ---
PROCEDURE: XR CHEST 2V INDICATIONS: fever and cough TECHNIQUE: 2 views of the chest were acquired. COMPARISON: [facility], CR, XR CHEST 2V, 04/22/2021, 13:01. FINDINGS: Surgical changes and devices: None. Lungs and pleura: Lungs are clear. No pleural effusions or pneumothorax. Mediastinum: Mediastinal contours are normal. Heart size is normal. Bones and chest wall: No suspicious bony abnormalities. Soft tissues appear unremarkable. IMPRESSION: No acute pulmonary process. Dictated by: Rosita Mckay M.D. on 03/18/2022 at 13:42 Approved by: Rosita Mckay M.D. on 03/18/2022 at 13:42
[2022-03-18 14:36] LABS: Influenza A - CEPHEID Flu A NEGATIVE (NEGATIVE); Influenza B - CEPHEID Flu B NEGATIVE (NEGATIVE); Respiratory Syncytial Virus Negative (Negative)
[2022-03-18 15:07] LABS: COVID-19 CEPHEID 4-PLEX PCR POSITIVE (Negative)
== END ==
PROVIDERS: Family Provider Physician Assistant; PCP Physician Assistant; Referring Provider Physician Assistant; Visit Provider Physician Assistant
DX: R05.9 Cough, unspecified (principal); R50.9 Fever, unspecified
CPT/HCPCS: 0241U; 71046

== ENCOUNTER 2023-12-07 18:32 | Emergency (ER) | payer MEDICARE, OTHER, SELFPAY ==
[2023-12-07 18:34] VITALS: BP 169/96; PULSE 89; RESP 14; TEMP 36.7; O2SAT 97; BMI 29.0
--- NOTE | 2023-12-07 19:28 | ED_ITS ---
HPI - Animal Bite General Chief Complaint: Animal Bite Stated Complaint: cat bite to rt lower leg Time Seen by Provider: 12/07/23 19:27 Source: patient Mode of arrival: Ambulatory History of Present Illness HPI narrative: Patient is an 83-year-old female. She was up-to-date on her tetanus. Here for evaluation of a cat bite to right lower extremity. She stated that she did wash the wound out fairly extensively before coming in here to the ER. She had a difficult time controlling the bleeding which some of the reason that brought her in because she was concerned about potential infections Related Data Home Medications Medication Instructions Recorded Confirmed aspirin 81 mg chewable tablet 81 mg PO DAILY 07/11/19 09/26/22 atorvastatin 20 mg tablet 20 mg PO BEDTIME 07/11/19 09/26/22 levothyroxine 50 mcg capsule 50 mcg PO DAILY 03/18/22 09/26/22 Previous Rx's Medication Instructions Recorded amoxicillin 875 mg-potassium 1 tab PO BID 5 days #10 tabs 12/07/23 clavulanate 125 mg tablet Allergies Allergy/AdvReac Type Severity Reaction Status Date / Time Sulfa (Sulfonamide Allergy Verified 12/07/23 18:41 Antibiotics) Review of Systems Constitutional Constitutional: Reports system reviewed and no additional complaints, except as documented Integumentary/Breasts Skin/Breast: Reports system reviewed and no additional complaints, except as doc umented Neurologic Neurologic: Reports system reviewed and no additional complaints, except as documented Patient History Medical History Hyperlipidemia (~1991) Ischemic colitis (~2010) Surgical History H/O hysterectomy with oophorectomy History of left knee surgery (~2009) Family History Father Esophageal cancer Daughter Liposarcoma Social History Smoking Status: Former smoker alcohol intake: never substance use type: does not use Smoking Status: Former smoker alcohol intake frequency: holidays/special occasions only Substance Use Type: does not use Exam Initial Vital Signs Initial Vital Signs: Vital Signs Temperature 98.1 F 12/07/23 18:34 Pulse Rate 89 12/07/23 18:34 Respiratory Rate 14 12/07/23 18:34 Blood Pressure 169/96 H 12/07/23 18:34 Pulse Oximetry 97 12/07/23 18:34 Oxygen Delivery Method Room Air 12/07/23 18:34 Const General: cooperative and comfortable Skin Other: Patient with 2 small abrasions/puncture was the anterior portion of the distal 1/3 of her right lower extremity. No active bleeding. Neuro Sensory Exam: no sensory deficits noted Extrem Other: Puncture wounds to right lower extremity Course Vital Signs Vital signs: Vital Signs - 8 hr 12/07/23 18:34 12/07/23 19:43 Temperature 98.1 F Pulse Rate 89 77 Respiratory Rate 14 16 Blood Pressure 169/96 H 161/75 H Pulse Oximetry 97 98 Oxygen Delivery Method Room Air Room Air MDM - Animal Bite MDM Narrative Medical decision making narrative: Wounds are fairly superficial. There was no indication for suturing. I am also convinced there was no foreign body based on the exam. Given the nature of the this was a animal bite will treat prophylactically with antibiotics which were sent to the pharmacy of her choice. Patient states she is up-to-date on her tetanus. Will discharge patient home with return precautions Discharge Plan Departure Patient Disposition: Home Clinical Impression: Cat bite Instructions: DI for Animal Bites Activity Restrictions/Additional Instructions: Keep the area clean with soap and water. You can put topical antibiotic ointment over the area as well. Take the antibiotics as directed. Return to the emergency department for new symptoms. Prescriptions: New amoxicillin-pot clavulanate 875-125 mg tablet 1 tab PO BID 5 Days Qty: 10 0RF No Action levothyroxine 50 mcg capsule 50 mcg PO DAILY atorvastatin 20 mg Tablet 20 mg PO BEDTIME aspirin 81 mg Tablet,Chewable 81 mg PO DAILY Referrals: Jess Jordan PA-C [Primary Care Provider] - Stand Alone Forms: Patient Portal/API
--- NOTE | 2023-12-07 19:42 | PC.NURSE ---
pt had to small skin tears on olivarez from cat bite no bigger than 0.75cm. bleeding controllled during assessment, placed a 4x4 alyvn dressing over wounds and instructed wound care.
[2023-12-07 19:43] VITALS: BP 161/75; PULSE 77; RESP 16; O2SAT 98
== END 2023-12-07 19:45 | disposition home or self-care (01) ==
PROVIDERS: Emergency Provider Emergency Medicine; Family Provider Physician Assistant; PCP Physician Assistant
DX: S80.871A Other superficial bite, right lower leg, initial encounter (principal); W55.01XA Bitten by cat, initial encounter
CPT/HCPCS: 99281

== ENCOUNTER → 2025-03-13 10:04 | Outpatient (CLI) | payer MEDICARE, OTHER, SELFPAY ==
--- NOTE | 2025-03-13 10:05 | DI.RAD.S_ITS ---
1 PROCEDURE: XR DEXA AXIAL SKELETON INDICATIONS: Asymptomatic menopausal state COMPARISON: [facility], , XR DEXA AXIAL SKELETON, 11/24/2021, 11:38. [facility], CR, DEXA AXIAL SKELETON, 07/03/2015, 11:15. FINDINGS: Lumbar Spine: Bone mineral density 1.038 g/cm2, T score -0.1, increased by 2.2%. Left Femoral Neck: Bone mineral density 0.743 g/cm2, T score -1.0. Left Hip: Bone mineral density 0.798 g/cm2, T score -1.2, no significant change. Fracture Risk Calculation (when applicable): 10-year fracture risk of a major osteoporotic fracture 11 percent and of a hip fracture 2.4 percent. (T score greater or equal to -1.0 to: NORMAL) (T score from -1.1 to -2.4: OSTEOPENIA) (T score less than or equal to -2.5: OSTEOPOROSIS) IMPRESSION: Low bone mineral density (osteopenia) by WHO classification. Follow-up guidelines as follows: Osteoporosis: Consider a repeat DEXA and Vertebral Fracture Assessment (VFA) exam in 2 years or sooner if medically necessary, to reassess this patient's status. Osteopenia: Consider a repeat DEXA in 2-3 years to reassess this patient's status, or if there is a new clinical indication. Normal: Consider a repeat DEXA in 5 years or sooner, or if there is a new clinical indication. All treatment decisions require clinical judgment and consideration of individual patient factors, including patient preferences, comorbidities, previous drug use, risk factors not captured in the FRAX model (e.g., frailty, falls, vitamin D deficiency, increased bone turnover, interval significant decline in bone density ) and possible under- or over-estimation of fracture risk by FRAX. In addition, the NOF Guide recommends that FDA-approved medical therapies be considered in postmenopausal women and men age >= 50 years with a: * Hip or vertebral (clinical or morphometric) fracture * T-score of <=-2.5 at the spine or hip * Ten-year fracture probability by FRAX of >= 3% for hip fracture or >=20% for major osteoporotic fracture. Dictated by: Washington Gallardo M.D. on 03/15/2025 at 13:53 Approved by: Washington Gallardo M.D. on 03/15/2025 at 13:54
== END ==
PROVIDERS: Family Provider Physician Assistant; PCP Physician Assistant; Visit Provider Physician Assistant
DX: M85.852 Other specified disorders of bone density and structure, left thigh (principal); Z78.0 Asymptomatic menopausal state
CPT/HCPCS: 77080